=== PATIENT | female | born 1945 | race African-American/Black ===

== ENCOUNTER 2016-12-29 13:10 | Inpatient (IN) | payer OTHER, MEDICARE ==
[~2016-12-29] VITALS: Ht 176.5 cm; Wt 83.0 kg
--- NOTE | 2016-12-29 13:27 | ED MVC/FALL/TRAUMA COMPLAINT ---
History of Present Illness General Chief Complaint: General Adult Stated Complaint: WEAKNESS Source: patient Exam Limitations: no limitations Allergies Coded Allergies: NO KNOWN ALLERGIES (02/17/13) Reconcile Medications Alprazolam 0.5 MG TABLET 1 TAB PO 4XDP PRN ANXIETY (Reported) Anastrozole 1 MG TABLET 1 TAB PO DAILY CANCER (Reported) Ascorbic Acid (Vitamin C) 1,000 MG TABLET 1 TAB PO BID SUPPLEMENT (Reported) Atorvastatin Calcium 40 MG TABLET 1 TAB PO DAILY CHOLESTEROL (Reported) Baclofen 20 MG TABLET 1 TAB PO BID SPASMS (Reported) Baclofen 10 MG TABLET 1 TAB PO DAILY NEEDED PRN SPASMS (Reported) Calcium Carbonate/Vitamin D3 (Calcium + Vitamin D Tablet) 600 MG-200 TABLET 1 TAB PO BID SUPPLEMENT (Reported) Clemastine Fumarate 2.68 MG TABLET 1 TAB PO DAILY NEEDED PRN ALLERGIES ( Reported) Cyanocobalamin (Vitamin B-12) 1,000 MCG TABLET 2 TAB PO DAILY SUPPLEMENT ( Reported) Diclofenac Sodium (Voltaren) 1 % GEL..GRAM. 1 GM TOP 4 TIMES/DAY PRN KNEE PAIN (Reported) apply to affected area(s) Emollient Combination No.10 (Biafine) 45 GM EMULSN.G. 1 EMIR TOP DAILY UNKNOWN (Reported) Gabapentin 100 MG CAPSULE 1 CAP PO TID PRN PAIN (Reported) Glucosamine Sulfate (Unknown Strength) CAPSULE (Unknown Dose) PO DAILY SUPPLEMENT (Reported) Hydrocodone/Acetaminophen (Vicodin 5-300 MG Tablet) 5 MG-300 MG TABLET 1 TAB PO Q4 HRS NEEDED PRN PAIN (Reported) Interferon Beta-1a (Avonex) 30 MCG/0.5 ML SYRINGEKIT 1 INJ QMON UNKNONW ( Reported) Latanoprost (Xalatan) 0.005 % DROPS 1 GTT OPH QPM EYE (Reported) Levothyroxine Sodium (Synthroid) 75 MCG TABLET 1 TAB PO DAILY AC THYROID ( Reported) Paroxetine HCl (Paxil) 20 MG TABLET 1 TAB PO DAILY MENTAL HEALTH (Reported) Prochlorperazine Maleate (Compazine) 10 MG TABLET 1 TAB PO Q4 HRS NEEDED PRN NAUSEA/VOMITING (Reported) Pyridoxine HCl 500 MG TABLET 2 TAB PO DAILY SUPPLEMENT (Reported) Quazepam ([place]) 15 MG TABLET 1 TAB PO QPMP PRN SLEEP (Reported) Timolol Maleate 0.5 % DROPS 1 GTT OPH BID EYE (Reported) Ubidecarenone (Co Q-10) 100 MG CAPSULE 1 CAP PO DAILY SUPPLEMENT (Reported) Triage Nurses Notes Reviewed? yes HPI: This patient is a 71-year-old female with a past medical history including multiple sclerosis who presented to the emergency department today accompanied by her son for evaluation of weakness. The patient reported, "whenever I turn the heat up in my house the energy out of me." The patient's son reported that he found her face down on the ground at 11:00 this morning. The patient fell at approximately 2:00 this morning. The patient does not remember if she passed out or had a mechanical fall. The patient reported that she does have a, "bump on my forehead." The patient reported some mild intermittent nausea. She denied any headaches, visual changes, arm pain, jaw pain, dizziness, lightheadedness, chest pain, difficulty breathing, vomiting, abdominal pain, or any focal pain. This patient sees her multiple sclerosis doctor out of [place], Dr. perez. (AMBROSE PABLO PA-C) Vital Signs & Intake/Output Vital Signs & Intake/Output Vital Signs Date Time Temp Pulse Resp B/P Pulse O2 O2 Flow FiO2 Ox Delivery Rate 01/04 0843 100.0 01/04 0654 101.5 87 18 136/70 94 Room Air 01/04 0651 101.3 01/03 2248 97.0 83 18 136/78 93 Room Air 01/03 1426 97.5 90 18 140/80 94 Room Air ED Intake and Output 01/04 0000 01/03 1200 Intake Total 600 120 Output Total 400 100 Balance 200 20 Intake, Oral 600 120 Output, Urine 400 100 Past History Travel History Traveled to [place] past 21 day No Medical History Any Pertinent Medical History? see below for history Neurological: multiple sclerosis Surgical History Surgical History: non-contributory Psychosocial History Who do you live with Family Services at Home Nursing What is your primary language Khmer Family History Hx Contributory? No (AMBROSE PABLO PA-C) Review of Systems Review of Systems Constitutional: Reports: see HPI. Eyes: Reports: no symptoms. Ears, Nose, Throat, Mouth: Reports: no symptoms. Respiratory: Reports: no symptoms. Cardiovascular: Reports: no symptoms. Gastrointestinal/Abdominal: Reports: see HPI. Genitourinary: Reports: no symptoms. Musculoskeletal: Reports: no symptoms. Skin: Reports: no symptoms. Neurological/Psychological: Reports: no symptoms. All Other Systems: Reviewed and Negative (SAMY SEPULVEDA,AMBROSE) Physical Exam Physical Exam General Appearance: well developed/nourished, no apparent distress, alert, awake Comments: Well-developed well-nourished person in no acute distress HEENT: Normal EENT exam, head normocephalic/atraumatic no bony deformity/step- off of the skull, hematoma to the forehead, moist mucous membranes Pupils equally round and reactive to light. Nose is atraumatic. Neck: Supple, no lymphadenopathy. No midline tenderness Back: Normal inspection Cardiovascular: Regular rate and rhythm with no murmurs, rubs, or gallops Respiratory: Chest nontender. No respiratory distress. Breath sounds clear to auscultation bilaterally with no wheezes, rales, rhonchi Abdomen: Soft, nontender and nondistended Extremity: No edema, no calf tenderness to palpation, normal and equal pulses. Neuro: Alert oriented x3, motor sensory normal, cranial nerves II through XII grossly intact. Skin: No appreciable rash on exposed skin, skin is warm and dry. Areas of erythema and blistering to bilateral anterior thighs. Multiple skin tears to bilateral arms with some blistering noted Psych: Mood and affect is normal, memory and judgment is normal. Core Measures ACS in differential dx? Yes Severe Sepsis Present: No Septic Shock Present: No (SAMY SEPULVEDA,AMBROSE) Progress Differential Diagnosis: aoritic dissection, abd injury, C/T/L spine injury, ext injury, ICH, pelvis injury, pnemothorax, spinal cord injury, syncope, sepsis, burn, pneumonia, urinary tract infection Diagnostic Imaging: Viewed by Me: Radiology Read, CT Scan. Discussed w/RAD: Radiology Read, CT Scan. Radiology Impression: PATIENT: LOLY PEREZ PRESENT AGE: 71 PATIENT ACCOUNT NO: [id number] : 47 LOCATION: [facility] ORDERING PHYSICIAN: AMBROSE PABLO PA-C SERVICE DATE: 12/29/16 EXAM TYPE: CAT - CT CERV SPINE WO IV CONTRAST; CT HEAD WO IV CONTRAST; CT MAXILLOFACIAL W/O CON EXAMINATION: CT HEAD, CERVICAL SPINE, AND MAXILLOFACIAL. CLINICAL INFORMATION: Fall. COMPARISON: CT head of February 17, 2013 TECHNIQUE: CT scanning from base of skull to vertex performed without IV contrast administration. CT cervical spine without intrathecal contrast. Maxillofacial CT without intravenous contrast. DLP: 1574.10 mGy-cm. FINDINGS: The ventricles, sulci, and cisterns appear unremarkable. No abnormal extra-axial fluid collection or intracranial hemorrhage is seen. No significant mass effect or midline structure shift is evident. There is frontal scalp hematoma present. Visualized paranasal sinuses and mastoid air cells are without air-fluid levels with mucus retention cyst seen within left sphenoid sinus and right ethmoid. No abnormal prevertebral soft tissue swelling is seen within the cervical spine. There is loss of the normal cervical spine lordosis. No acute fracture is evident. There is narrowing of the C4-C5, C5-C6, and C6-C7 disc spaces. There is some mild spurring of the joints of Luschka at the C5-C6 level bilaterally but without significant neural foramina encroachment. Study of the facial bones demonstrate scalp hematoma about the frontal region. There is also noted to be a large right thyroid nodule with mass deviation of the trachea to the left. No nasal bone fractures identified. Maxillary spine is intact. There is opacification of a posterior right ethmoid air cell and there is mucus retention cyst within the left sphenoid sinus without air-fluid levels identified within the paranasal sinuses. Pterygoid plates intact. No acute facial bone fracture is seen. Ostiomeatal complexes unremarkable. No significant deviation of the calcified nasal septum. Status post right orbital surgery. IMPRESSION: No acute intracranial abnormality identified. Cervical spondylosis C4-C7 without acute cervical spine fracture. No acute facial bone fracture identified. Prominent right thyroid nodule. DICTATED BY: CORNELIUS OCAMPO MD DATE/TIME DICTATED:12/29/161399 DELIVERY SALES WORKER: PIPER DATE/TIME TRANSCRIBED:12/29/161399 CONFIDENTIAL, DO NOT COPY WITHOUT APPROPRIATE AUTHORIZATION. <Electronically signed in Other Vendor System> SIGNED BY: CORNELIUS OCAMPO MD 12/29/16 1444 CXR Impression: PATIENT: LOLY PEREZ PRESENT AGE: 71 PATIENT ACCOUNT NO: [id number] : 47 LOCATION: [facility] ORDERING PHYSICIAN: AMBROSE PABLO PA-C SERVICE DATE: 12/29/161323 EXAM TYPE: RAD - XRY- PORTABLE CHEST XRAY EXAMINATION: XR PORTABLE CHEST CLINICAL INFORMATION: Fall, altered mental status, pneumonia COMPARISON: 08/08/2014 chest x-ray and [address] scan TECHNIQUE: Portable AP view of the chest was obtained. FINDINGS: There is mild cardiomegaly. Tortuosity of thoracic aorta noted. The mediastinal silhouette is unremarkable. The pulmonary vascularity is within normal limits. The lungs are clear. Surgical terry in the left axilla noted. Unilateral presence of the right breast tissue suggests prior left mastectomy. The visualized bony thorax is unremarkable. IMPRESSION: 1. Mild cardiomegaly. 2. No acute pulmonary finding. DICTATED BY: JOANNE FUENTES MD DATE/TIME DICTATED: 12/29/161410 DELIVERY SALES WORKER:PIPER DATE/TIME TRANSCRIBED:12/29/161410 CONFIDENTIAL, DO NOT COPY WITHOUT APPROPRIATE AUTHORIZATION. <Electronically signed in Other Vendor System> SIGNED BY: JOANNE FUENTES MD 12/29/16 1419 Comments: 12/29/2016 2:45:42 PM: I spoke to on-call affirmative action specialist, Dr. Herndon. This patient 's affirmative action specialist is Dr. Xiao. This patient has a troponin level of 0.14. CK above 9000. This patient will need to be admitted to telemetry with diagnosis of rhabdomyolysis. This patient was officially signed out to Dr. Rendon for telemetry admission. (SAMY SEPULVEDA,AMBROSE) Plan of Care: Orders Procedure Date/time Status CREATINE PHOSPHOKINASE 01/04 0800 Active CBC WITHOUT DIFFERENTIAL 01/04 06 Complete BASIC ELECTROLYTES PLUS BUN&CR 01/04 06 Active Lab Add-on Test 01/04 UNK Active Current Medications Sig/Francy Start time Last Medication Dose Stop Time Status Admin Acetaminophen/ 1 TAB Q6P PRN 01/04 1030 AC Hydrocodone Bitart (Vicodin) Famotidine 20 MG DAILY 01/04 1025 AC (Pepcid) Baclofen 10 MG DAILY NEEDED PRN 12/29 1545 AC (Lioresal 10MG Tablet) Laboratory Tests 01/04/17 0800: Anion Gap 7, Estimated GFR > 60, BUN/Creatinine Ratio 18.3, Creatine Kinase Pending, CBC w Diff NO MAN DIFF REQ, RBC 3.64 L, MCV 86.6, MCH 28.3, RDW 13.8, MPV 8.5, Gran % 76.1 H, Lymphocytes % 14.8 L, Monocytes % 7.9, Eosinophils % 1.0, Basophils % 0.2, Absolute Granulocytes 7.9 H, Absolute Lymphocytes 1.5, Absolute Monocytes 0.8 H, Absolute Eosinophils 0.1, Absolute Basophils 0, PUBS MCHC 32.7 L Departure Departure Disposition: STILL A PATIENT Condition: Stable Clinical Impression Primary Impression: Elevated troponin Secondary Impressions: Fall Qualifiers: Encounter type: initial encounter Qualified Code: W19.XXXA - Unspecified fall, initial encounter Rhabdomyolysis Qualifiers: Rhabdomyolysis type: traumatic Encounter type: initial encounter Qualified Code: T79.6XXA - Traumatic ischemia of muscle, initial encounter Referrals: SILVINA ZAVALA MD (PCP/Family) Departure Forms: Customer Survey General Discharge Information Admission Note Spoke With: LYNDSAY BARAJAS MD Documentation of Exam: Documentation of any treatments & extenuating circumstances including Concerns Regarding Discharge (functional status, medication knowledge or non-compliance, living conditions, etc.) that warrant an admission rather than observation: [ This patient is a 71-year-old female the past medical history including multiple sclerosis who presented to the emergency department today for evaluation of fall and weakness. Troponin elevated. CK over 9000. White blood cell count 26. This patient will need to be admitted to telemetry for serial EKGs, serial troponin levels, follow-up blood cultures, follow-up urine culture, cardiology consultation, trend labs, possible IV antibiotics, IV fluids, and close monitoring. Premature discharge could prove medically harmful. This patient is a poor candidate for outpatient treatment.] (SAMY SEPULVEDA,AMBROSE) PA/PIPE INSULATOR HELPER Co-Sign Statement Statement: ED Attending supervision documentation- x I saw and evaluated the patient. I have also reviewed all the pertinent lab results and diagnostic results. I agree with the findings and the plan of care as documented in the PA's/PIPE INSULATOR HELPER's documentation. [] I have reviewed the ED Record and agree with the PA's/PIPE INSULATOR HELPER's documentation. [] Additions or exceptions (if any) to the PAs/PIPE INSULATOR HELPER's note and plan are summarized below: [] (BONNIE HDZ,FRANKLYN) sclerosis who presented to the emergency department today for evaluation of fall and weakness. Troponin elevated. CK over 9000. White blood cell count 26. This patient will need to be admitted to telemetry for serial EKGs, serial troponin levels, follow-up blood cultures, follow-up urine culture, cardiology consultation, trend labs, possible IV antibiotics, IV fluids, and close monitoring. Premature discharge could prove medically harmful. This patient is a poor candidate for outpatient treatment.] (SAMY SEPULVEDA,AMBROSE) PA/PIPE INSULATOR HELPER Co-Sign Statement Statement: ED Attending supervision documentation- x I saw and evaluated the patient. I have also reviewed all the pertinent lab results and diagnostic results. I agree with the findings and the plan of care as documented in the PA's/PIPE INSULATOR HELPER's documentation. [] I have reviewed the ED Record and agree with the PA's/PIPE INSULATOR HELPER's documentation. [] Additions or exceptions (if any) to the PAs/PIPE INSULATOR HELPER's note and plan are summarized below: [] (BONNIE HDZ,FRANKLYN)
[2016-12-29 13:47] LABS: ABSOLUTE BASOPHIL COUNT 0 /CUMM (0.0-0.2); ABSOLUTE EOSINOPHIL COUNT 0 /CUMM (0.0-0.7); ABSOLUTE GRANULOCYTE CT 24.6 /CUMM (1.4-6.5); ABSOLUTE LYMPH COUNT 1.3 /CUMM (1.2-3.4); ABSOLUTE MONOCYTE COUNT 0.3 /CUMM (0.10-0.60); BASOPHIL % 0 % (0.0-2.0); EOSINOPHIL % 0 % (0-5); HEMATOCRIT 42.7 % (37-47); MEAN CORPUSCULAR HGB 28.7 PG (27.0-31.0); MEAN CORPUSCULAR HGB CONC 33.1 G/DL (33.0-37.0); MEAN CORPUSCULAR VOLUME 86.6 FL (81.0-99.0); PLATELET COUNT 187 /CUMM (130-400); RBC DISTRIBUTION WIDTH 13.4 % (11.5-14.5); RED BLOOD CELL CT 4.93 /CUMM (4.20-5.40); WHITE BLOOD CELL COUNT 26.2 /CUMM (4.8-10.8)
[2016-12-29] MEDS ORDERED: GABAPENTIN100 M2 PO (13:50)
[2016-12-29] MEDS ORDERED: ATORVASTATIN CA40 M1 PO (13:51)
[2016-12-29] MEDS ORDERED: VITAMIN B-121000 MC3 PO (13:52)
[2016-12-29] MEDS ORDERED: CLEMASTINE FU2.68 MG PO (13:52)
[2016-12-29] MEDS ORDERED: BACLOFEN10 M1 PO (13:53)
[2016-12-29] MEDS ORDERED: BACLOFEN20 M1 PO (13:53)
[2016-12-29] MEDS ORDERED: GLUCOSAMINE SU PO (13:54)
[2016-12-29] MEDS ORDERED: AVONEX30 MCG/0.1 (13:54)
[2016-12-29] MEDS ORDERED: CALCIUM + VITA1 EAC1 PO (13:55)
[2016-12-29] MEDS ORDERED: PYRIDOXINE HCL500 MG PO (13:56)
[2016-12-29] MEDS ORDERED: CO Q-10100 MG PO (13:57)
[2016-12-29] MEDS ORDERED: VITAMIN C500 M6 PO (13:57)
[2016-12-29] MEDS ORDERED: BIAFINE45 GM TOP (13:58)
[2016-12-29] MEDS ORDERED: VOLTAREN100 GM TOP (13:59)
[2016-12-29] MEDS ORDERED: TIMOLOL MALEATE5 M4 OPH (13:59)
[2016-12-29] MEDS ORDERED: ANASTROZOLE1 M1 PO (14:00)
[2016-12-29] MEDS ORDERED: XALATAN2.5 ML OPH (14:00)
[2016-12-29] MEDS ORDERED: SYNTHROID50 MCG PO (14:00)
[2016-12-29] MEDS ORDERED: PAXIL20 M1 PO (14:01)
[2016-12-29] MEDS ORDERED: ALPRAZOLAM0.5 M4 PO (14:02)
[2016-12-29] MEDS ORDERED: VICODIN 5-3001 EACH PO (14:03)
[2016-12-29] MEDS ORDERED: [UNRECOGNIZED DRUG - OTHER] PO (14:03)
[2016-12-29] MEDS ORDERED: COMPAZINE10 M1 PO (14:04)
[2016-12-29 14:11] LABS: GRANULOCYTE % 93.8 % (42.2-75.2)
--- NOTE | 2016-12-29 14:19 | RADIOLOGY REPORT ---
EXAMINATION: XR PORTABLE CHEST CLINICAL INFORMATION: Fall, altered mental status, pneumonia COMPARISON: 08/08/2014 chest x-ray and 11/18/[address] scan TECHNIQUE: Portable AP view of the chest was obtained. FINDINGS: There is mild cardiomegaly. Tortuosity of thoracic aorta noted. The mediastinal silhouette is unremarkable. The pulmonary vascularity is within normal limits. The lungs are clear. Surgical terry in the left axilla noted. Unilateral presence of the right breast tissue suggests prior left mastectomy. The visualized bony thorax is unremarkable. IMPRESSION: 1. Mild cardiomegaly. 2. No acute pulmonary finding.
--- NOTE | 2016-12-29 14:44 | CT SCAN REPORT ---
EXAMINATION: CT HEAD, CERVICAL SPINE, AND MAXILLOFACIAL. CLINICAL INFORMATION: Fall. COMPARISON: CT head of February 17, 2013 TECHNIQUE: CT scanning from base of skull to vertex performed without IV contrast administration. CT cervical spine without intrathecal contrast. Maxillofacial CT without intravenous contrast. DLP: 1574.10 mGy-cm. FINDINGS: The ventricles, sulci, and cisterns appear unremarkable. No abnormal extra-axial fluid collection or intracranial hemorrhage is seen. No significant mass effect or midline structure shift is evident. There is frontal scalp hematoma present. Visualized paranasal sinuses and mastoid air cells are without air-fluid levels with mucus retention cyst seen within left sphenoid sinus and right ethmoid. No abnormal prevertebral soft tissue swelling is seen within the cervical spine. There is loss of the normal cervical spine lordosis. No acute fracture is evident. There is narrowing of the C4-C5, C5-C6, and C6-C7 disc spaces. There is some mild spurring of the joints of Luschka at the C5-C6 level bilaterally but without significant neural foramina encroachment. Study of the facial bones demonstrate scalp hematoma about the frontal region. There is also noted to be a large right thyroid nodule with mass deviation of the trachea to the left. No nasal bone fractures identified. Maxillary spine is intact. There is opacification of a posterior right ethmoid air cell and there is mucus retention cyst within the left sphenoid sinus without air-fluid levels identified within the paranasal sinuses. Pterygoid plates intact. No acute facial bone fracture is seen. Ostiomeatal complexes unremarkable. No significant deviation of the calcified nasal septum. Status post right orbital surgery. IMPRESSION: No acute intracranial abnormality identified. Cervical spondylosis C4-C7 without acute cervical spine fracture. No acute facial bone fracture identified. Prominent right thyroid nodule.
--- NOTE | 2016-12-29 15:49 | Cons- Cardiology ---
General Information and HPI Consulting Request Date of Consult: 12/29/16 Requested By: LYNDSAY BARAJAS MD Reason for Consult: Fall, rule out syncope; elevated troponin Source of Information: patient, family Exam Limitations: no limitations History of Present Illness: The patient is a 71-year-old female who is usually followed by Dr. 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 The patient presents to the hospital today via the emergency room after being found by her son on the floor at home. The patient, the temperature in her apartment was high. She felt weak. She feels this was due to her MS. She apparently fell to the floor. She denies any known loss of consciousness or syncope. The patient was unable to get up and stayed on the floor from 2:30 AM until she was found by her son in the midmorning. On arrival to the emergency room, the patient had areas of bruising. She was noted to have a markedly elevated CPK of almost 10,000 and a minimally elevated troponin of 0.14. The patient denies any significant cardiac symptoms whatsoever. Allergies/Medications Allergies: Coded Allergies: NO KNOWN ALLERGIES (02/17/13) Home Med List: Alprazolam 0.5 MG TABLET 1 TAB PO 4XDP PRN ANXIETY (Reported) Anastrozole 1 MG TABLET 1 TAB PO DAILY CANCER (Reported) Ascorbic Acid (Vitamin C) 1,000 MG TABLET 1 TAB PO BID SUPPLEMENT (Reported) Atorvastatin Calcium 40 MG TABLET 1 TAB PO DAILY CHOLESTEROL (Reported) Baclofen 20 MG TABLET 1 TAB PO BID SPASMS (Reported) Baclofen 10 MG TABLET 1 TAB PO DAILY NEEDED PRN SPASMS (Reported) Calcium Carbonate/Vitamin D3 (Calcium + Vitamin D Tablet) 600 MG-200 TABLET 1 TAB PO BID SUPPLEMENT (Reported) Clemastine Fumarate 2.68 MG TABLET 1 TAB PO DAILY NEEDED PRN ALLERGIES ( Reported) Cyanocobalamin (Vitamin B-12) 1,000 MCG TABLET 2 TAB PO DAILY SUPPLEMENT ( Reported) Diclofenac Sodium (Voltaren) 1 % GEL..GRAM. 1 GM TOP 4 TIMES/DAY PRN KNEE PAIN (Reported) apply to affected area(s) Emollient Combination No.10 (Biafine) 45 GM EMULSN.G. 1 EMIR TOP DAILY UNKNOWN (Reported) Gabapentin 100 MG CAPSULE 1 CAP PO TID PRN PAIN (Reported) Glucosamine Sulfate (Unknown Strength) CAPSULE (Unknown Dose) PO DAILY SUPPLEMENT (Reported) Hydrocodone/Acetaminophen (Vicodin 5-300 MG Tablet) 5 MG-300 MG TABLET 1 TAB PO Q4 HRS NEEDED PRN PAIN (Reported) Interferon Beta-1a (Avonex) 30 MCG/0.5 ML SYRINGEKIT 1 INJ QMON UNKNONW ( Reported) Latanoprost (Xalatan) 0.005 % DROPS 1 GTT OPH QPM EYE (Reported) Levothyroxine Sodium (Synthroid) 75 MCG TABLET 1 TAB PO DAILY AC THYROID ( Reported) Paroxetine HCl (Paxil) 20 MG TABLET 1 TAB PO DAILY MENTAL HEALTH (Reported) Prochlorperazine Maleate (Compazine) 10 MG TABLET 1 TAB PO Q4 HRS NEEDED PRN NAUSEA/VOMITING (Reported) Pyridoxine HCl 500 MG TABLET 2 TAB PO DAILY SUPPLEMENT (Reported) Quazepam ([place]) 15 MG TABLET 1 TAB PO QPMP PRN SLEEP (Reported) Timolol Maleate 0.5 % DROPS 1 GTT OPH BID EYE (Reported) Ubidecarenone (Co Q-10) 100 MG CAPSULE 1 CAP PO DAILY SUPPLEMENT (Reported) Past History Travel History Traveled to [place] past 21 day No Medical History Neurological: multiple sclerosis EENT: NONE Cardiovascular: NONE Respiratory: NONE Gastrointestinal: NONE Hepatic: NONE Renal: NONE Musculoskeletal: NONE Psychiatric: NONE Endocrine: NONE Cancer(s): L BREAST CANCER W MASTECT Surgical History Surgical History: non-contributory Psychosocial History Services at Home: Nursing Exam & Diagnostic Data Vital Signs and I&O Vital Signs Date Time Temp Pulse Resp B/P Pulse O2 O2 Flow FiO2 Ox Delivery Rate 12/29 1425 96.8 81 18 143/92 96 Room Air 12/29 1335 97.0 100 20 130/90 97 Room Air Physical Exam: Well-developed well-nourished female in no acute distress; alert and oriented 3 HEENT: Normal; slight bruising central for Neck: Supple, no lymphadenopathy. No midline tenderness. No JVP elevation. Carotids normal bilaterally Cardiovascular: Regular rate and rhythm; 1/6 systolic murmur left sternal border Respiratory: Chest nontender. Clear to auscultation and percussion bilaterally Abdomen: Soft, nontender and nondistended Extremity: No edema, no calf tenderness to palpation, normal and equal pulses. Neuro: Nonfocal Skin: No appreciable rash on exposed skin, skin is warm and dry. Areas of erythema and blistering to bilateral anterior thighs. Multiple skin tears to bilateral arms with some blistering noted Psych: Mood and affect is normal, memory and judgment is normal. Labs/Waqar Results: Laboratory Tests 12/29 1339 Chemistry Sodium (137 - 145 mmol/L) 145 Potassium (3.5 - 5.1 mmol/L) 3.8 Chloride (98 - 107 mmol/L) 103 Carbon Dioxide (22 - 30 mmol/L) 25 Anion Gap (5 - 16) 17 H BUN (7 - 17 mg/dL) 29 H Creatinine (0.5 - 1.0 mg/dL) 0.9 Estimated GFR (>60 ml/min) > 60 BUN/Creatinine Ratio (7 - 25 %) 32.2 H Glucose (65 - 99 mg/dL) 159 H Lactic Acid (0.7 - 2.1 mmol/L) 3.8 H Calcium (8.4 - 10.2 mg/dL) 9.8 Total Bilirubin (0.2 - 1.3 mg/dL) 1.2 AST (14 - 36 U/L) 133 H ALT (9 - 52 U/L) 53 H Alkaline Phosphatase (<127 U/L) 112 Creatine Kinase (30 - 135 U/L) 9679 H Troponin I (< 0.11 ng/ml) 0.14 *H Total Protein (6.3 - 8.2 g/dL) 7.8 Albumin (3.5 - 5.0 g/dL) 4.3 Globulin (1.9 - 4.2 gm/dL) 3.5 Albumin/Globulin Ratio (1.1 - 2.2 %) 1.2 TSH (0.270 - 4.200 uIU/mL) Pending Free T4 (0.78 - 2.44 ng/dL) 1.78 Hematology CBC w Diff MAN DIFF ORDERED WBC (4.8 - 10.8 /CUMM) 26.2 H RBC (4.20 - 5.40 /CUMM) 4.93 Hgb (12.0 - 16.0 G/DL) 14.1 Hct (37 - 47 %) 42.7 MCV (81.0 - 99.0 FL) 86.6 MCH (27.0 - 31.0 PG) 28.7 RDW (11.5 - 14.5 %) 13.4 Plt Count (130 - 400 /CUMM) 187 MPV (7.4 - 10.4 FL) 8.0 Gran % (42.2 - 75.2 %) 93.8 H Lymphocytes % (20.5 - 51.1 %) 4.9 L Monocytes % (1.7 - 9.3 %) 1.3 L Eosinophils % (0 - 5 %) 0 Basophils % (0.0 - 2.0 %) 0 L Absolute Granulocytes (1.4 - 6.5 /CUMM) 24.6 H Segmented Neutrophils (42.2 - 75.2 %) 80 H Band Neutrophils (0.0 - 5.0 %) 14 H Absolute Lymphocytes (1.2 - 3.4 /CUMM) 1.3 Lymphocytes (20.5 - 51.1 %) 4 L Monocytes (1.7 - 9.3 %) 2 Absolute Monocytes (0.10 - 0.60 /CUMM) 0.3 Absolute Eosinophils (0.0 - 0.7 /CUMM) 0 Absolute Basophils (0.0 - 0.2 /CUMM) 0 Normocytic RBCs VERIFIED Normochromic RBCs VERIFIED PUBS MCHC (33.0 - 37.0 G/DL) 33.1 Diagnostic Data CXR Results FINDINGS: There is mild cardiomegaly. Tortuosity of thoracic aorta noted. The mediastinal silhouette is unremarkable. The pulmonary vascularity is within normal limits. The lungs are clear. Surgical terry in the left axilla noted. Unilateral presence of the right breast tissue suggests prior left mastectomy. The visualized bony thorax is unremarkable. IMPRESSION: 1. Mild cardiomegaly. 2. No acute pulmonary finding. Assessment/Plan Assessment/Plan Assessment: 1. Minimally elevated troponin in the setting of rhabdomyolysis 2. Fall, possibly mechanical; rule out syncope 3. History of breast cancer 4. Multiple sclerosis 5. Significant leukocytosis 6. Cardiomegaly on chest x-ray 7. Elevated lactic acid level Recommendations: -Keep the patient on 1 [place] telemetry for monitoring -Check orthostatic heart rate and blood pressure every shift 3 -Echocardiogram pending -IV fluid hydration for rhabdomyolysis as discussed with house staff -Follow-up CPK levels -Serial troponins until decreasing -Further plans after the above Consult Acknowledgment - Thank you for your consult request.
--- NOTE | 2016-12-29 16:06 | History & Physical ---
[facility] 12[facility] 1552: General Information and HPI MD Statement: I have seen and personally examined LOLY PEREZ and documented this H&P. The patient is a 71 year old F who presented with a patient stated chief complaint of [fall and weakness]. Source of Information: patient, family Exam Limitations: no limitations History of Present Illness: Patient is a 71-year-old female with past medical history of left breast cancer status post mastectomy currently on an anastrozole, MS, osteoarthritis, hyperlipidemia, status post left knee replacement who was brought into the ED by her son for the evaluation of a fall and weakness. Patient reported feeling very weak and lethargic this morning. She went to bed at night turning on the heat of her room which she believes made her dehydrated and sick. She woke up around 2 AM to go to the bathroom feeling very weak. She felt her muscles were sore and achy. She fell down in the bathroom flat on her face by the side of the toilet and was unable to get up. She denied any dizziness, visual changes, headaches, shortness of breath, chest pain, palpitations, nausea, vomiting, or aura before the episode. She had no LOC and felt that her muscles were aching and her legs were unable to support her. She bumped her forehead after hitting the floor. She kept laying there for about 10 hours until she was found by her son in the same position at 11:45 AM. The son was unable to pick her up and therefore called EMS. Patient reports no fever, no chills, abdominal pain, urinary or bowel symptoms. Patient reports that she had similar weakness in the past due to increased temperature conditions in her house. She had a replacement about 2 years back and since then have been using a walker for ambulation. At baseline, patient has MS and sees Dr. Ga in [place]. She has no neurological deficits from her MS. Dr. Patterson is her radiation oncologist. She has been on hormonal therapy for sometime now and has is very compliant with her medications. Norbert Staples MD is her lead radiation therapist to whom she was referred to by her radiation doctor when she was put on Herceptin. In the ED vitals were stable with a temperature of 97, pulse 100, respiration 20 , blood pressure 130/90, saturating 97% on room air Pertinent labs showed white count of 26.2 with 14 bands, anion gap of 17, lactic acid 3.8, AST 133, AST 53, creatinine kinase 9679, troponin 0.14, TSH 0.122, normal free T4. EKG: Regular rate and rhythm, 81 bpm, left axis deviation, left ventricular hypertrophy, nonspecific T-wave changes. Cervical spine CT, head CT, maxillofacial CT were negative for any fractures. 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 Patient received IV fluids in the ED. Allergies/Medications Allergies: Coded Allergies: NO KNOWN ALLERGIES (02/17/13) Home Med list Alprazolam 0.5 MG TABLET 1 TAB PO 4XDP PRN ANXIETY (Reported) Anastrozole 1 MG TABLET 1 TAB PO DAILY CANCER (Reported) Ascorbic Acid (Vitamin C) 1,000 MG TABLET 1 TAB PO BID SUPPLEMENT (Reported) Atorvastatin Calcium 40 MG TABLET 1 TAB PO DAILY CHOLESTEROL (Reported) Baclofen 20 MG TABLET 1 TAB PO BID SPASMS (Reported) Baclofen 10 MG TABLET 1 TAB PO DAILY NEEDED PRN SPASMS (Reported) Calcium Carbonate/Vitamin D3 (Calcium + Vitamin D Tablet) 600 MG-200 TABLET 1 TAB PO BID SUPPLEMENT (Reported) Clemastine Fumarate 2.68 MG TABLET 1 TAB PO DAILY NEEDED PRN ALLERGIES ( Reported) Cyanocobalamin (Vitamin B-12) 1,000 MCG TABLET 2 TAB PO DAILY SUPPLEMENT ( Reported) Diclofenac Sodium (Voltaren) 1 % GEL..GRAM. 1 GM TOP 4 TIMES/DAY PRN KNEE PAIN (Reported) apply to affected area(s) Emollient Combination No.10 (Biafine) 45 GM EMULSN.G. 1 EMIR TOP DAILY UNKNOWN (Reported) Gabapentin 100 MG CAPSULE 1 CAP PO TID PRN PAIN (Reported) Glucosamine Sulfate (Unknown Strength) CAPSULE (Unknown Dose) PO DAILY SUPPLEMENT (Reported) Hydrocodone/Acetaminophen (Vicodin 5-300 MG Tablet) 5 MG-300 MG TABLET 1 TAB PO Q4 HRS NEEDED PRN PAIN (Reported) Interferon Beta-1a (Avonex) 30 MCG/0.5 ML SYRINGEKIT 1 INJ QMON UNKNONW ( Reported) Latanoprost (Xalatan) 0.005 % DROPS 1 GTT OPH QPM EYE (Reported) Levothyroxine Sodium (Synthroid) 75 MCG TABLET 1 TAB PO DAILY AC THYROID ( Reported) Paroxetine HCl (Paxil) 20 MG TABLET 1 TAB PO DAILY MENTAL HEALTH (Reported) Prochlorperazine Maleate (Compazine) 10 MG TABLET 1 TAB PO Q4 HRS NEEDED PRN NAUSEA/VOMITING (Reported) Pyridoxine HCl 500 MG TABLET 2 TAB PO DAILY SUPPLEMENT (Reported) Quazepam ([place]) 15 MG TABLET 1 TAB PO QPMP PRN SLEEP (Reported) Timolol Maleate 0.5 % DROPS 1 GTT OPH BID EYE (Reported) Ubidecarenone (Co Q-10) 100 MG CAPSULE 1 CAP PO DAILY SUPPLEMENT (Reported) Past History Travel History Traveled to [place] past 21 day No Medical History Neurological: multiple sclerosis EENT: NONE Cardiovascular: NONE Respiratory: NONE Gastrointestinal: NONE Hepatic: NONE Renal: NONE Musculoskeletal: NONE Psychiatric: NONE Endocrine: NONE Cancer(s): L BREAST CANCER W MASTECT Surgical History Surgical History: non-contributory Past Family/Social History Psychosocial History Services at Home: Nursing Review of Systems Review of Systems Constitutional: Reports: malaise, weakness. EENTM: Reports: no symptoms. Cardiovascular: Reports: no symptoms. Respiratory: Reports: no symptoms. GI: Reports: no symptoms. Genitourinary: Reports: no symptoms. Musculoskeletal: Reports: muscle pain, muscle stiffness. Skin: Reports: no symptoms. Neurological/Psychological: Reports: no symptoms. Exam & Diagnostic Data Last 24 Hrs of Vital Signs/I&O Vital Signs Date Time Temp Pulse Resp B/P Pulse O2 O2 Flow FiO2 Ox Delivery Rate 12/29 1425 96.8 81 18 143/92 96 Room Air 12/29 1335 97.0 100 20 130/90 97 Room Air Physical Exam General Appearance Alert, Oriented X3, Cooperative, Mild Distress Skin mastectomy scar on the left breast, left knee surgery scar, erythema and scars seen on bilateral feet. some blistering over the arms HEENT Atraumatic, PERRLA, EOMI, very dry mucous membranes Neck Supple, No JVD Lymphatic Cervical nl Cardiovascular Regular Rate, Normal S1, Normal S2, systolic murmur Lungs Clear to Auscultation, Normal Air Movement Abdomen Normal Bowel Sounds, Soft, No Tenderness, No Hepatospenomegaly Neurological Normal Gait, Normal Speech, Normal Tone, decreased power 4/5 in all extremities due to muscle weakness. Diminished light touch sensation over left leg up to the knee. cold upper extremities Extremities No Clubbing, No Cyanosis, No Edema, scars and blisters over bilateral lower extremities. Left knee surgical scar Vascular Normal Pulses Last 24 Hrs of Labs/Waqar: Laboratory Tests 12/29/16 1339: Anion Gap 17 H, Estimated GFR > 60, BUN/Creatinine Ratio 32.2 H, Glucose 159 H, Lactic Acid 3.8 H, Calcium 9.8, Total Bilirubin 1.2, AST 133 H, ALT 53 H, Alkaline Phosphatase 112, Creatine Kinase 9679 H, Troponin I 0.14 *H, Total Protein 7.8, Albumin 4.3, Globulin 3.5, Albumin/Globulin Ratio 1.2, TSH 0.122 L , Free T4 1.78, CBC w Diff MAN DIFF ORDERED, RBC 4.93, MCV 86.6, MCH 28.7, RDW 13.4, MPV 8.0, Gran % 93.8 H, Lymphocytes % 4.9 L, Monocytes % 1.3 L, Eosinophils % 0, Basophils % 0 L, Absolute Granulocytes 24.6 H, Segmented Neutrophils 80 H, Band Neutrophils 14 H, Absolute Lymphocytes 1.3, Lymphocytes 4 L, Monocytes 2, Absolute Monocytes 0.3, Absolute Eosinophils 0, Absolute Basophils 0, Normocytic RBCs VERIFIED, Normochromic RBCs VERIFIED, PUBS MCHC 33.1 Microbiology 12/29 1420 BLOOD: Blood Culture - RECD 12/29 1400 BLOOD: Blood Culture - RECD 12/29 1323 URINE ROUT: Urine Culture - COLB Diagnostic Data CXR Results FINDINGS: There is mild cardiomegaly. Tortuosity of thoracic aorta noted. The mediastinal silhouette is unremarkable. The pulmonary vascularity is within normal limits. The lungs are clear. Surgical terry in the left axilla noted. Unilateral presence of the right breast tissue suggests prior left mastectomy. The visualized bony thorax is unremarkable. IMPRESSION: 1. Mild cardiomegaly. 2. No acute pulmonary finding. Assessment/Plan Assessment: Patient is a 71-year-old female with past medical history of left breast cancer status post mastectomy currently on an anastrozole, MS, osteoarthritis, hyperlipidemia, status post left knee replacement who was brought into the ED by her son for the evaluation of a fall and weakness apparently mechanical. In the ED vitals were stable with a temperature of 97, pulse 100, respiration 20 , blood pressure 130/90, saturating 97% on room air Pertinent labs showed white count of 26.2 with 14 bands, anion gap of 17, lactic acid 3.8, AST 133, AST 53, creatinine kinase 9679, troponin 0.14, TSH 0.122, normal free T4. EKG: Regular rate and rhythm, 81 bpm, left axis deviation, left ventricular hypertrophy, nonspecific T-wave changes. Cervical spine CT, head CT, maxillofacial CT were negative for any fractures. 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 Patient received IV fluids in the ED. Plan: 1.Unwitnessed fall: Differentials could be mechanical fall due to muscle weakness versus loss of coordination/balance/pain in limbs secondary to MS exacerbation. Patient denies any LOC/chest pain/vision problems/dizziness/ neurological deficits. -Admit to telemetry -Every 4 hours neuro checks -Check orthostatics -IV normal saline at 1 50 mL per hour -Trend CPK levels -3 sets of troponin and EKG to rule out ACS -Continue baclofen and gabapentin as needed for muscle pain and spasms -Check electrolytes and replete as needed -Echocardiogram -Physical therapy evaluation and treat 2. Elevated troponins: Likely demand ischemia -Close monitoring on the telemetry floor -Trend troponins to the peak -Replete electrolytes as needed -Repeat echocardiogram(last echo in 2011 shows EF of 60% with impaired LV relaxation) -Cardiology consult appreciated(Norbert Staples MD is patient's lead radiation therapist) 3. Elevated white count and bandemia: No clear source of infection at this point. Chest x-ray benign. UA pending. Elevated lactate level secondary to rhabdomyolysis -IV fluids at 1 50 mL an hour -Repeat CDC levels in a.m. -Blood and urine cultures -Check UA 4. Rhabdomyolysis -Aggressive hydration with IV normal saline at 150 mL an hour -Repeat CPK levels in a.m. -Repeat lactic acid levels in 3 hours -Holding statin for muscle injury 5. History of MS -No neurological deficits -Continue baclofen and gabapentin as needed for muscle spasm and neuropathic pain -Continue merbetriq for neurogenic bladder -Dr. Ga in [place] is patient's MS doctor. 6.Transaminitis? Unclear etiology -Trend LFTs in a.m. -Consider right upper quadrant ultrasound 7. History of left breast cancer status post mastectomy and radiation/currently on hormonal therapy -Continue anastrozole -Courtsey call to Dr Patterson patient's radiation oncologist 8. Low TSH? Normal free T4. Right Thyroid nodule on CT -We'll cut down on patient's home med levothyroxin from 75 to 50 g -Please consider endocrinology consult to readjust her thyroid medication Heart healthy diet Full code Mild pain pathway As Ranked By This Provider Problem List: 1. Rhabdomyolysis Qualifiers Rhabdomyolysis type: traumatic Encounter type: initial encounter Qualified Code : T79.6XXA - Traumatic ischemia of muscle, initial encounter 2. Fall Qualifiers Encounter type: initial encounter Qualified Code: W19.XXXA - Unspecified fall, initial encounter 3. Elevated troponin Core Measures/Miscellaneous Acute Coronary Syndrome ACS Diagnosis: No Date of most recent Echo 12/31/11 Last Known EF % 60 Cerebrovascular Accident CVA/TIA Diagnosis: No Congestive Heart Failure CHF Diagnosis: No Venous Thromboembolism VTE Risk Factors: Age > 40, Cancer/chemo/[facility] prophylaxis d/t: No contraindications No VTE Pharm Prophylaxis d/t: No contraindications VTE Diagnosis: No VTE Type: NONE VTE Confirmed by (Test): NONE Severe Sepsis Severe Sepsis Present: No Septic Shock Septic Shock Present: No Miscellaneous Documentation Attending Case Discussed With: LYNDSAY BARAJAS MD Primary Care Physician: SILVINA ZAVALA MD Patient sees these Specialists dr patterson Level of Patient Care: Telemetry LYNDSAY BARAJAS MD 12/29/16 2013: Attending MD Review Statement Attending Statement Attending MD Statement: examined this patient, discuss w/resident/PA/RUSSIAN LANGUAGE INSTRUCTOR, agreed w/resident/PA/RUSSIAN LANGUAGE INSTRUCTOR, reviewed EMR data (avail) Attending Assessment/Plan: 71F PMH multiple sclerosis, left breast cancer on Anostrazole, brought in by family after being found down in bathroom for at least 12 hours. Patient reports feeling weak last night which progressively worsened, fell in her bathroom, and was unable to get up on her own. THere is no focal neurological deficits or focal weakness. She appears dehydrated and weak, and there is no evidence of infection. Labs show rhabdomyolysis and elevated troponin. No EKG changes. Plan - Admit to telemetry - IV hydration - Trend cardiac enzymes and EKG - Cardiology consult - Obtain echocardiogram - Repeat CPK level tomorrow - No steroids for now - Consider neurology consult if neurological symptoms, will alert patient's neurologist of admission - Neuro checks qshift - Continue home medications - DVT PPx
[2016-12-29 18:00] VITALS: BP 158/84
--- NOTE | 2016-12-29 20:14 | Admission Certification ---
Admission Certification Certification Statement - As attending physician, I certify that at the time of - admission, based on clinical presentation, severity of - symptoms, need for further diagnostic testing and - therapeutic interventions, and risk of adverse outcomes - without in-hospital treatment, in my clinical assessment, - this patient requires an acute hospital stay for a minimum - of two nights or longer. I have also considered psychsocial - factors such as support system, advanced age, financial - issues, cognitive issues, and failed out-patient treatments, - past re-admission history, safety of patient, and lack of - compliance as applicable. Specific rationale supporting this admission is: Fall, unable to get up, rhabdomyolysis
[2016-12-29 23:42] VITALS: BP 102/48
[2016-12-30 02:20] VITALS: BP 108/60
[2016-12-30 04:05] LABS: ABSOLUTE BASOPHIL COUNT 0.1 /CUMM (0.0-0.2); ABSOLUTE EOSINOPHIL COUNT 0 /CUMM (0.0-0.7); ABSOLUTE GRANULOCYTE CT 15.9 /CUMM (1.4-6.5); ABSOLUTE LYMPH COUNT 1.5 /CUMM (1.2-3.4); ABSOLUTE MONOCYTE COUNT 0.8 /CUMM (0.10-0.60); BASOPHIL % 0.4 % (0.0-2.0); EOSINOPHIL % 0 % (0-5); GRANULOCYTE % 86.9 % (42.2-75.2); MEAN CORPUSCULAR HGB 28.8 PG (27.0-31.0); MEAN CORPUSCULAR HGB CONC 33.4 G/DL (33.0-37.0); MEAN CORPUSCULAR VOLUME 86.2 FL (81.0-99.0); MEAN PLATELET VOLUME 9.1 FL (7.4-10.4); PLATELET COUNT 152 /CUMM (130-400); RBC DISTRIBUTION WIDTH 13.2 % (11.5-14.5); RED BLOOD CELL CT 4.09 /CUMM (4.20-5.40); WHITE BLOOD CELL COUNT 18.3 /CUMM (4.8-10.8)
[2016-12-30 04:09] LABS: HEMATOCRIT 35.3 % (37-47)
[2016-12-30 09:11] VITALS: BP 128/68
--- NOTE | 2016-12-30 10:04 | PN- Housestaff ---
[facility] 12/30/16 1004: Subjective Follow-up For: Unwitnessed fall Elevated troponins Questionable UTI Complaints: CONTINUES TO FEEL WEAK, LETHARGIC AND TIRED Tele-Events Since Last Visit: Sinus rhythm, PVCs Subjective: Patient was admitted yesterday for an unwitnessed fall at home. She still continues to feel weak and sore in her muscles. Spiked a fever MAXIMUM TEMPERATURE of 100.8 at around midnight. Blood cultures growing gram-negative rods. Patient has no urinary symptoms, abdominal pain, nausea vomiting, chest pain. She has been started on IV ceftriaxone this am. Review of Systems Constitutional: Reports: fever, malaise, weakness. EENTM: Reports: no symptoms. Cardiovascular: Reports: no symptoms. Respiratory: Reports: no symptoms. Gastrointestinal: Reports: no symptoms. Genitourinary: Reports: no symptoms. Musculoskeletal: Reports: muscle pain, muscle stiffness. Skin: Reports: no symptoms. Neurological/Psychological: Reports: no symptoms. Objective Last 24 Hrs of Vital Signs/I&O Vital Signs Date Time Temp Pulse Resp B/P Pulse O2 O2 Flow FiO2 Ox Delivery Rate 12/30 1013 99.7 12/30 0911 100.5 75 18 128/68 94 Room Air 12/30 0252 99.7 12/30 0220 99.7 82 18 108/60 96 Room Air 12/30 0018 101.2 12/29 2342 100.8 80 18 102/48 94 Room Air / 1800 98.9 82 18 158/84 92 / 1713 97.7 77 16 165/95 97 Room Air / 1425 96.8 81 18 143/92 96 Room Air / 1335 97.0 100 20 130/90 97 Room Air Intake & Output 12/30 1600 12/30 0800 / 0000 Intake Total 700 240 Output Total Balance 700 240 Intake, Oral 700 240 Physical Exam General Appearance: Alert, Oriented X3, Cooperative, Mild Distress Skin: mastectomy scar on the left breast, scarring and blistering seen over the arms and legs. HEENT: Atraumatic, PERRLA, EOMI, dry mucous membranes Neck: Supple, No JVD Lymphatic: Cervical nl Cardiovascular: Regular Rate, Normal S1, Normal S2, systolic murmur Lungs: Clear to Auscultation, Normal Air Movement Abdomen: Normal Bowel Sounds, Soft, No Tenderness Neurological: Normal Speech, Normal Tone, weakness in all 4 extremities. Diminished light touch sensation on the left leg UP TO THE KNEE. Extremities: No Clubbing, No Cyanosis, No Edema, LEFT KNEE SURGICAL SCAR, BLISTERING AND SCARRING OVER BILATERAL LOWER EXTREMITIES. Current Medications: Current Medications Sig/Francy Start time Last Medication Dose Route Stop Time Status Admin Acetaminophen 650 MG .STK-MED ONE 12/30 0012 DC PO 12/30 0013 Acetaminophen 325 MG Q6-PRN PRN 12/29 1530 AC 12/30 PO 1013 Alprazolam 0.5 MG ONCE ONE 12/30 0930 DC 12/30 PO 12/30 0931 1015 Alprazolam 0.5 MG ONCE PRN 12/29 1545 DC 12/29 PO 12/29 2300 2035 Anastrozole 1 MG DAILY 12/29 1533 AC 12/30 PO 1013 Baclofen 10 MG DAILY NEEDED PRN 12/29 1545 AC PO Ceftriaxone Sodium 1,000 MG DAILY 12/31 1000 AC IV Ceftriaxone Sodium 1,000 MG DAILY 12/30 1000 DC IV Ceftriaxone Sodium 1,000 MG ONCE ONE 12/30 0745 DC 12/30 IV 12/30 0746 1012 Enoxaparin Sodium 40 MG DAILY 12/29 1518 AC 12/30 SC 1014 Gabapentin 100 MG TID PRN 12/29 1545 AC 12/30 PO 0026 Levothyroxine Sodium 0.05 MG DAILY AC 12/30 0700 AC 12/30 PO 0556 Levothyroxine Sodium 0.075 MG DAILY AC 12/29 1537 DC PO Mirabegron 50 MG DAILY 12/29 1600 AC 12/30 PO 1012 Paroxetine HCl 20 MG DAILY 12/30 1000 AC 12/30 PO 1014 Potassium Chloride 40 MEQ ONCE ONE 12/30 0730 DC 12/30 PO 12/30 0731 1013 Potassium Chloride 20 MEQ ONCE ONE 12/30 0630 DC 12/30 PO 12/30 0731 1014 Sodium Chloride 1,000 ML Q6H 12/30 0930 AC 12/30 IV 1013 Sodium Chloride 1,000 ML Q6H 12/29 1600 DC 12/29 IV 12/30 0359 2114 Sodium Chloride 1,000 ML BOLUS ONE 12/29 1430 DC 12/29 IV 12/29 1529 1454 Timolol Maleate 1 GTT BID 12/29 1538 AC 12/30 OPH 1014 Last 24 Hrs of Lab/Waqar Results Last 24 Hrs of Labs/Mics: Laboratory Tests 12/30/16 0700: Urinalysis MOD H, Urine Color YEL, Urine Clarity HAZY H, Urine pH 6.0, Ur Specific Rison >= 1.030, Urine Protein 100 H, Urine Ketones TRACE H, Urine Nitrite POS H, Urine Bilirubin NEG, Urine Urobilinogen 0.2, Ur Leukocyte Esterase MOD H, Ur Microscopic SEDIMENT EXAMINED, Urine RBC 3-5, Urine WBC 25- 50 H, Ur Epithelial Cells RARE, Urine Bacteria MANY H, Urine Hemoglobin LARGE H, Urine Glucose NEG 12/30/16 0305: Troponin I 0.13 *H 12/30/16 0305: Anion Gap 9, Estimated GFR > 60, BUN/Creatinine Ratio 37.1 H, Total Bilirubin 0.8, Direct Bilirubin 0.2, AST 120 H, ALT 56 H, Alkaline Phosphatase 92, Creatine Kinase 6854 H, Total Protein 5.9 L, Albumin 3.1 L, CBC w Diff MAN DIFF ORDERED, RBC 4.09 L, MCV 86.2, MCH 28.8, RDW 13.2, MPV 9.1, Gran % 86.9 H , Lymphocytes % 8.3 L, Monocytes % 4.4, Eosinophils % 0, Basophils % 0.4, Absolute Granulocytes 15.9 H, Segmented Neutrophils 84 H, Band Neutrophils 4, Absolute Lymphocytes 1.5, Lymphocytes 9 L, Monocytes 3, Absolute Monocytes 0.8 H, Absolute Eosinophils 0, Absolute Basophils 0.1, Platelet Estimate ADEQUATE, Polychromasia 1+, Poikilocytosis 1+, Ovalocytes 1+, PUBS MCHC 33.4, Fld Total RBCs Counted 100 12/30/16 0252: Lactic Acid Cancelled 12/30/16 0005: Lactic Acid 2.0 12/29/16 2030: Troponin I 0.15 *H 12/29/16 2030: Lactic Acid 3.6 H 12/29/16 1339: Anion Gap 17 H, Estimated GFR > 60, BUN/Creatinine Ratio 32.2 H, Glucose 159 H, Lactic Acid 3.8 H, Calcium 9.8, Total Bilirubin 1.2, AST 133 H, ALT 53 H, Alkaline Phosphatase 112, Creatine Kinase 9679 H, Troponin I 0.14 *H, Total Protein 7.8, Albumin 4.3, Globulin 3.5, Albumin/Globulin Ratio 1.2, TSH 0.122 L , Free T4 1.78, CBC w Diff MAN DIFF ORDERED, RBC 4.93, MCV 86.6, MCH 28.7, RDW 13.4, MPV 8.0, Gran % 93.8 H, Lymphocytes % 4.9 L, Monocytes % 1.3 L, Eosinophils % 0, Basophils % 0 L, Absolute Granulocytes 24.6 H, Segmented Neutrophils 80 H, Band Neutrophils 14 H, Absolute Lymphocytes 1.3, Lymphocytes 4 L, Monocytes 2, Absolute Monocytes 0.3, Absolute Eosinophils 0, Absolute Basophils 0, Normocytic RBCs VERIFIED, Normochromic RBCs VERIFIED, PUBS MCHC 33.1 Microbiology 12/30 0700 URINE ROUT: Urine Culture - RECD 12/29 1654 BLOOD: Blood Culture - CAN Cancelled: DUPLICATE - SEE [id number] 12/29 1654 BLOOD: Blood Culture - CAN Cancelled: DUPLICATE - SEE [id number] 12/29 1420 BLOOD: Blood Culture - RES GRAM NEGATIVE RODS 12/29 1400 BLOOD: Blood Culture - RES GRAM NEGATIVE RODS 12/29 1323 URINE ROUT: Urine Culture - COLB Assessment/Plan Assessment: Patient is a 71-year-old female with past medical history of left breast cancer status post mastectomy currently on an anastrozole, MS, osteoarthritis, hyperlipidemia, status post left knee replacement who was brought into the ED by her son for the evaluation of a fall and weakness apparently mechanical. Plan 1.Sepsis of urological origin (fever, white count and due to urine):UA was nitrite and leukocyte esterase positive with 25-50 WBCs. Patient has a neurogenic bladder and is on merbetriq.. -White count trending down -Continue IV hydration with normal saline at 1 50 mL an hour -Lactic acid trended down -Blood cultures positive for gram-negative rods -Patient started on IV ceftriaxone daily pending sensitivities -No urological complaints -IV Tylenol for fever 2.Unwitnessed fall/rhabdomyolysis -No events on the insurance sales agent -ACS ruled out with negative troponins and EKG -CPK levels trending down with aggressive hydration with normal saline IV at 1 50 mL per hour -Trend CPK levels daily -Echocardiogram pending -Orthostatic vitals not done -Holding statin for muscle injury -Physical therapy evaluation for regaining strength 3. Elevated troponins: Likely demand ischemia -Troponins trended down -Echocardiogram pending (last echo in 2011 shows EF of 60% with impaired LV relaxation) -Cardiology consult appreciated(Norbert Staples MD is patient's protection consultant) 4. History of MS -No neurological deficits -Continue baclofen and gabapentin as needed for muscle spasm and neuropathic pain -Continue merbetriq for neurogenic bladder -Dr. Ga in [place] is patient's MS doctor. 5.Transaminitis? Unclear etiology. Nonalcoholic/medical history of hepatitis -LFTs trending down -Consider right upper quadrant ultrasound 6. History of left breast cancer status post mastectomy and radiation/currently on hormonal therapy -Continue anastrozole -Courtsey call to Dr Patterson patient's radiation oncologist 7. Low TSH? Normal free T4. Right Thyroid nodule on CT -We'll cut down on patient's home med levothyroxin from 75 to 50 g -Please consider endocrinology consult to readjust her thyroid medication Heart healthy diet Full code Mild pain pathway Problem List: 1. Rhabdomyolysis 2. Fall 3. Elevated troponin Pain Ratin Pain Location: MUSCLES Pain Goal: Remain pain free Pain Plan: Gabapentin, baclofen Tomorrow's Labs & Rationales: Cbc.. Infection Bep hypokalemia Creatinine kinase rhabdomyolysis... [facility] 12/30/16 1255: Attending MD Review Statement Attending Statement Attending MD Statement: examined this patient, discuss w/resident/PA/PASSENGER TIRE INSPECTOR, agreed w/resident/PA/PASSENGER TIRE INSPECTOR, reviewed EMR data (avail), discussed with nursing, discussed with case mgmt, reviewed images Attending Assessment/Plan: Pt has gram neg rods in her blood likely urological origin. So this is gram- negative septicemia of urological origin in a patient who had a fall, rhabdomyolysis, dehydration and positive troponin likely demand ischemia. We'll continue the IV ceftriaxone, the aggressive IV hydration. Will speak to cardiology about taking her off the monitor as this was likely demand ischemia but will follow closely on the echo. Will follow-up on PT eval and ID of the organism in the blood and hopefully urine.
--- NOTE | 2016-12-30 14:51 | ECHOCARDIOGRAM REPORT ---
LOLY PEREZ Age: 71 : 1945 Gender: F Exam Date: 12/30/2016 11:25 Exam Location: [address] Ht (in): 69 Wt (lb): 183 BSA: 2.03 BP: 108 / 60 Ordering Physician: ERIC BYRD, Referring Physician: ERIC BYRD MD Technologist: Donnie Null [facility] Room Number: 180-1 Indications: Arrhythmia Rhythm: Sinus Technical Quality: Fair FINDINGS Left Ventricle Left ventricular cavity size normal. Left ventricular wall thickness mildly increased. No obvious regional wall motion abnormalities. Left ventricular ejection fraction is estimated at > 60 %. Abnormal relaxation filling pattern of the left ventricle (stage 1 diastolic dysfunction). Right Ventricle Normal right ventricular size and function. Right Atrium Normal right atrial size. Left Atrium Left atrial size at the upper limits of normal. Mitral Valve Mild mitral annular calcification. No mitral stenosis. Trace mitral regurgitation. Aortic Valve Trileaflet aortic valve. No aortic stenosis. Tricuspid Valve Tricuspid valve not well visualized, grossly normal. Trace tricuspid regurgitation. Unable to estimate the right ventricular systolic pressure. Pulmonic Valve Pulmonic valve not well visualized, grossly normal. Pericardium No pericardial effusion. Great Vessels Normal size aortic root and proximal ascending aorta. CONCLUSIONS Left ventricular cavity size normal. Left ventricular wall thickness mildly increased. No obvious regional wall motion abnormalities. Left ventricular ejection fraction is estimated at > 60 %. Abnormal relaxation filling pattern of the left ventricle (stage 1 diastolic dysfunction). Left atrial size at the upper limits of normal. No pericardial effusion. Eduardo Silva M.D. (Electronically Signed) Final Date: 30 December 2016 14:50 MEASUREMENTS (Male / Female) Normal Values 2D ECHO LV Diastolic Diameter PLAX 4.8 cm 4.2 - 5.9 / 3.9 - 5.3 cm LV Systolic Diameter PLAX 2.8 cm 2.1 - 4.0 cm LV Fractional Shortening PLAX 41.7 % 25 - 46 % LV Ejection Fraction 2D Teich 72.5 % IVS Diastolic Thickness 1.3 cm LVPW Diastolic Thickness 1.3 cm LV Relative Wall Thickness 0.5 RV Internal Dim ED PLAX 3.7 cm 1.9 - 3.8 cm LVOT Diameter 2.0 cm Aortic Root Diameter 2.6 cm LA Systolic Diameter LX 3.7 cm 3.0 - 4.0 / 2.7 - 3.8 cm Ascending Aorta Diameter 3.0 cm DOPPLER AV Peak Velocity 161.0 cm/s AV Peak Gradient 10.4 mmHg AV Mean Velocity 96.4 cm/s AV Mean Gradient 5.0 mmHg AV Velocity Time Integral 27.1 cm LVOT Peak Velocity 97.0 cm/s LVOT Peak Gradient 3.8 mmHg LVOT Mean Velocity 63.8 cm/s LVOT Mean Gradient 2.0 mmHg LVOT Velocity Time Integral 18.4 cm LVOT Stroke Volume 57.8 cm AV Area Cont Eq vti 2.1 cm AV Area Cont Eq pk 1.9 cm MV Peak Velocity 73.1 cm/s MV Peak Gradient 2.1 mmHg MV Mean Velocity 41.3 cm/s MV Mean Gradient 1.0 mmHg Mitral E Point Velocity 40.5 cm/s Mitral A Point Velocity 54.3 cm/s Mitral E to A Ratio 0.7 MV PHT Velocity 58.4 cm/s MV Deceleration [place] 161.0 cm/s MV Pressure Half Time 108.8 ms MV Area PHT 2.0 cm MV Deceleration Time 405.0 ms TR Peak Velocity 143.0 cm/s TR Peak Gradient 8.2 mmHg Right Atrial Pressure 5.0 mmHg Pulmonary Artery Systolic Pressu 13.2 mmHg Right Ventricular Systolic Press 13.2 mmHg PV Peak Velocity 117.0 cm/s PV Peak Gradient 5.5 mmHg PV Mean Velocity 81.6 cm/s PV Mean Gradient 3.0 mmHg PV Velocity Time Integral 21.7 cm LV E' Lateral Velocity 11.8 cm/s Mitral E to LV E' Lateral Ratio 3.4 LV E' Septal Velocity 8.4 cm/s Mitral E to LV E' Septal Ratio 4.8
[2016-12-30 16:29] VITALS: BP 122/60
[2016-12-30 23:48] VITALS: BP 142/64
[2016-12-31 07:48] VITALS: BP 160/80
[2016-12-31 08:08] LABS: ABSOLUTE BASOPHIL COUNT 0 /CUMM (0.0-0.2); ABSOLUTE EOSINOPHIL COUNT 0 /CUMM (0.0-0.7); ABSOLUTE GRANULOCYTE CT 10.7 /CUMM (1.4-6.5); ABSOLUTE LYMPH COUNT 1.6 /CUMM (1.2-3.4); ABSOLUTE MONOCYTE COUNT 0.7 /CUMM (0.10-0.60); BASOPHIL % 0.2 % (0.0-2.0); EOSINOPHIL % 0.1 % (0-5); MEAN CORPUSCULAR HGB 28.9 PG (27.0-31.0); MEAN CORPUSCULAR HGB CONC 33.4 G/DL (33.0-37.0); MEAN CORPUSCULAR VOLUME 86.3 FL (81.0-99.0); MEAN PLATELET VOLUME 9.1 FL (7.4-10.4); PLATELET COUNT 138 /CUMM (130-400); RBC DISTRIBUTION WIDTH 13.6 % (11.5-14.5)
--- NOTE | 2016-12-31 08:33 | PN- Housestaff ---
[facility] 12/31/16 0814: Subjective Follow-up For: Urosepsis Mild rhabdomyolysis due to fall Complaints: weakness, and lethargy Tele-Events Since Last Visit: [facility] Subjective: Patient continues to feel weak and lethargic. Denies any nausea, vomiting, abdominal pain, chest pain, palpitations or bowel symptoms. Spiked a fever of 101 at 7:48 AM. Blood cultures growing gram-negative rods. Has been started on IV ceftriaxone. Awaiting culture and sensitivities. Review of Systems Constitutional: Reports: malaise, weakness. EENTM: Reports: no symptoms. Cardiovascular: Reports: no symptoms. Respiratory: Reports: no symptoms. Gastrointestinal: Reports: no symptoms. Musculoskeletal: Reports: joint swelling, muscle pain, muscle stiffness. Skin: Reports: change in skin color, lesions. Objective Last 24 Hrs of Vital Signs/I&O Vital Signs Date Time Temp Pulse Resp B/P Pulse O2 O2 Flow FiO2 Ox Delivery Rate 12/31 0748 101.0 75 20 160/80 95 Room Air 12/31 0000 96 12/30 2348 98.9 73 20 142/64 95 Room Air 12/30 1629 99.8 76 20 122/60 96 Room Air 12/30 1013 99.7 12/30 0911 100.5 75 18 128/68 94 Room Air Intake & Output 12/31 1600 12/31 0800 12/31 0000 Intake Total 840 120 Output Total 650 200 Balance 190 -80 Intake, IV 600 Intake, Oral 240 120 Output, Urine 650 200 Physical Exam General Appearance: Alert, Oriented X3, Cooperative, Mild Distress Skin: small hematoma to the left elbow. Mastectomy scar in the left chest.Small open blistered area on the chest wallon the left side. Right arm cold and swollen. Multiple open blisters in the armsand legs seen. No drainage. Some fluid-filled blisters in the legs. HEENT: PERRLA, EOMI, small hematoma over the left eyebrow, dry mucous membranes Neck: No JVD Lymphatic: Cervical nl Cardiovascular: Regular Rate, Normal S1, Normal S2, systolic murmur Lungs: Clear to Auscultation, Normal Air Movement Abdomen: Normal Bowel Sounds, Soft, No Tenderness Neurological: Normal Gait, weakness in all 4 extremities. Diminished light touch sensation in the left leg up to the knee. Extremities: No Clubbing, No Cyanosis, No Edema, Normal Pulses, SOME FLUID- FILLED BLISTERS ARE SEEN OVER THE LEGS. nO DRAINAGE. lEFT KNEE SURGICAL SCAR. SCARRING OVER BOTH LOWER EXTREMITIES., RESTRICTED RANGE OF MOTION OF THE RIGHT WRIST. Current Medications: Current Medications Sig/Francy Start time Last Medication Dose Route Stop Time Status Admin Acetaminophen 325 MG Q6-PRN PRN 12/29 1530 AC 12/30 PO 1013 Alprazolam 0.5 MG Q6-PRN PRN 12/30 1415 AC 12/30 PO 01/06 1414 2121 Alprazolam 0.5 MG ONCE ONE 12/30 0930 DC 12/30 PO 12/30 0931 1015 Anastrozole 1 MG DAILY 12/29 1533 AC 12/30 PO 1013 Baclofen 10 MG DAILY NEEDED PRN 12/29 1545 AC PO Ceftriaxone Sodium 1,000 MG DAILY 12/31 1000 AC IV Enoxaparin Sodium 40 MG DAILY 12/29 1518 AC 12/30 SC 1014 Gabapentin 100 MG TID PRN 12/29 1545 AC 12/30 PO 1828 Levothyroxine Sodium 0.05 MG DAILY AC 12/30 0700 AC 12/31 PO 0637 Mirabegron 50 MG DAILY 12/29 1600 AC 12/30 PO 1012 Paroxetine HCl 20 MG DAILY 12/30 1000 AC 12/30 PO 1014 Potassium Chloride 20 MEQ Q10H 12/30 1415 AC 12/31 Sodium Chloride 1,000 ML IV 0648 Sodium Chloride 1,000 ML Q6H 12/30 0930 DC 12/30 IV 1013 Timolol Maleate 1 GTT BID 12/29 1538 AC 12/30 OPH 2121 Last 24 Hrs of Lab/Waqar Results Last 24 Hrs of Labs/Mics: Laboratory Tests 12/31/16 0651: Anion Gap 4 L, Estimated GFR > 60, BUN/Creatinine Ratio 26.0 H, Creatine Kinase 2743 H, CBC w Diff Pending, WBC Pending, RBC Pending, Hgb Pending, Hct Pending, MCV Pending, MCH Pending, RDW Pending, Plt Count Pending, MPV Pending, PUBS MCHC Pending Assessment/Plan Assessment: Patient is a 71-year-old female with past medical history of left breast cancer status post mastectomy currently on an anastrozole, MS, osteoarthritis, hyperlipidemia, status post left knee replacement who was brought into the ED by her son for the evaluation of a fall and weakness apparently mechanical. Plan 1.Sepsis of urological origin : Spiked a fever of 101 AT 7.48 AM. -White count trending down. -We'll do a CT scan of abdomen and pelvis with contrast to rule out developing abscess since the patient spiked despite being on antibiotics. -Continue IV hydration with normal saline at 1 50 mL an hour -Continue on IV ceftriaxone day 2 pending sensitivities -Blood cultures positive for gram-negative rods -No urological complaints.Patient has a neurogenic bladder and is on merbetriq.. -IV Tylenol for fever 2.Unwitnessed fall/rhabdomyolysis -CPK levels trending down with aggressive hydration with normal saline IV at 100 mL per hour -Trend CPK levels daily -Holding statin for muscle injury -X-ray right wrist to rule out fracture -Physical therapy evaluation for regaining strength -Patient needs a new walker, reports a previous walker was not functioning properly. - Plan for Safe discharge/STR placement 3. Elevated troponins: Likely demand ischemia -Troponins trended down -ACS ruled out with negative troponins and EKG -Echocardiogram shows EF of more than 60%, no wall motion abnormalities, stage I diastolic dysfunction. 4. History of MS -No neurological deficits -Continue baclofen and gabapentin as needed for muscle spasm and neuropathic pain -Continue merbetriq for neurogenic bladder -Dr. Ga in [place] is patient's MS doctor. 5. Multiple blisters opened/fluid-filled over the body? [place] -Patient reports the blisters are secondary to overheating in her apartment. -Wound care nurse Veor barker. Will see the patient today. -Social work consult given unclear etiology of the blisters. Evaluation of home situation required. 6. History of left breast cancer status post mastectomy and radiation/currently on hormonal therapy -Continue anastrozole -Courtsey call to Dr Ptaterson patient's radiation oncologist 7. Low TSH? Normal free T4. Right Thyroid nodule on CT -We'll cut down on patient's home med levothyroxin from 75 to 50 g -Please consider endocrinology consult to readjust her thyroid medication Heart healthy diet Full code Mild pain pathway Problem List: 1. Fall 2. Rhabdomyolysis Pain Ratin Pain Location: MUSCLES Pain Goal: Remain pain free Pain Plan: Gabapentin, baclofen Tomorrow's Labs & Rationales: Cbc.. Infection Bep hypokalemia Creatinine kinase rhabdomyolysis... [facility] 12/31/16 1344: Attending MD Review Statement Attending Statement Attending MD Statement: examined this patient, discuss w/resident/PA/ASSEMBLING MACHINE OPERATOR, agreed w/resident/PA/ASSEMBLING MACHINE OPERATOR, reviewed EMR data (avail), discussed with nursing, discussed with case mgmt, reviewed images Attending Assessment/Plan: Patient continues to feel very weak and tired. She spiked to 101 today. We are treating gram-negative sepsis of presumed urological origin with IV ceftriaxone. Obviously I'm concerned that she spiking 48 hours into antibiotic therapy and will get a CT abdomen and pelvis with IV contrast to make sure there is no abscess there. I called wound care consult for these? heat related Blisters and also called a social work consult to clarify the home situation. The echocardiogram didn't show any acute wall motion abnormalities and we are treating her with IV hydration for a mild rhabdo and severe dehydration. I verbally spoke to Dr. Larios who is treating her for breast CA with anastrozole and Herceptin and radiation treatment and he is aware that she is here and will need outpatient follow-up on discharge.
--- NOTE | 2016-12-31 11:13 | PN- Cardiology ---
Subjective Subjective: Patient denies chest pain or shortness of breath. Review of Systems: Eyes no blurred or double vision Ears no deafness or ringing Nose and throat no recurrent sinusitis Lungs per history of present illness Heart per history of present illness Abdomen no nausea vomiting Musculoskeletal occasional muscle and joint pains Psych no anxiety or depression Neuro without recurrent headache or seizures Endocrine no heat or cold intolerance Objective Vital Signs and I&Os Vital Signs Date Time Temp Pulse Resp B/P Pulse O2 O2 Flow FiO2 Ox Delivery Rate 12/31 1043 Room Air 12/31 0859 101.0 12/31 0748 101.0 75 20 160/80 95 Room Air 12/31 0000 96 12/30 2348 98.9 73 20 142/64 95 Room Air 12/30 1629 99.8 76 20 122/60 96 Room Air Intake & Output 12/31 1600 12/31 0800 12/31 0000 12/30 1600 12/30 0800 12/30 0000 Intake Total 147 022 5017 700 240 Output Total 650 200 750 Balance 190 -80 575 700 240 Intake, IV 600 800 Intake, Oral 240 120 525 700 240 Output, Urine 650 200 750 Physical Exam: Patient is a well-developed well-nourished female appearing in no acute distress HEENT is unremarkable Neck is supple there is no JVD Lungs are clear Heart regular rhythm S1 and S2 are normal no murmurs gallops or rubs Abdomen bowel sounds positive Extremities without edema Current Medications: Current Medications Sig/Francy Start time Last Medication Dose Route Stop Time Status Admin Acetaminophen 325 MG Q6-PRN PRN 12/29 1530 AC 12/31 PO 0859 Alprazolam 0.5 MG Q6-PRN PRN 12/30 1415 AC 12/31 PO 01/06 1414 0900 Anastrozole 1 MG DAILY 12/29 1533 AC 12/31 PO 0901 Baclofen 10 MG DAILY NEEDED PRN 12/29 1545 AC PO Ceftriaxone Sodium 1,000 MG DAILY 12/31 1000 AC 12/31 IV 0855 Enoxaparin Sodium 40 MG DAILY 12/29 1518 AC 12/31 SC 0900 Gabapentin 100 MG TID PRN 12/29 1545 AC 12/30 PO 1828 Levothyroxine Sodium 0.05 MG DAILY AC 12/30 0700 AC 12/31 PO 0637 Mirabegron 50 MG DAILY 12/29 1600 AC 12/31 PO 0855 Paroxetine HCl 20 MG DAILY 12/30 1000 AC 12/31 PO 0859 Potassium Chloride 40 MEQ ONCE ONE 12/31 0830 DC 12/31 PO 12/31 0831 0917 Potassium Chloride 20 MEQ Q10H 12/30 1415 AC 12/31 Sodium Chloride 1,000 ML IV 0648 Sodium Chloride 1,000 ML Q6H 12/30 0930 DC 12/30 IV 1013 Timolol Maleate 1 GTT BID 12/29 1538 AC 12/31 OPH 0922 Results Last 48 Hrs of Labs/Mics: Laboratory Tests 12/31/16 0651: Anion Gap 4 L, Estimated GFR > 60, BUN/Creatinine Ratio 26.0 H, Creatine Kinase 2743 H, CBC w Diff NO MAN DIFF REQ, RBC 3.70 L, MCV 86.3, MCH 28.9, RDW 13.6, MPV 9.1, Gran % 82.0 H, Lymphocytes % 12.3 L, Monocytes % 5.4, Eosinophils % 0.1, Basophils % 0.2, Absolute Granulocytes 10.7 H, Absolute Lymphocytes 1.6, Absolute Monocytes 0.7 H, Absolute Eosinophils 0, Absolute Basophils 0, PUBS MCHC 33.4 12/30/16 0700: Urinalysis MOD H, Urine Color YEL, Urine Clarity HAZY H, Urine pH 6.0, Ur Specific Nathalie >= 1.030, Urine Protein 100 H, Urine Ketones TRACE H, Urine Nitrite POS H, Urine Bilirubin NEG, Urine Urobilinogen 0.2, Ur Leukocyte Esterase MOD H, Ur Microscopic SEDIMENT EXAMINED, Urine RBC 3-5, Urine WBC 25- 50 H, Ur Epithelial Cells RARE, Urine Bacteria MANY H, Urine Hemoglobin LARGE H, Urine Glucose NEG 12/30/16 0305: Troponin I 0.13 *H 12/30/16 0305: Anion Gap 9, Estimated GFR > 60, BUN/Creatinine Ratio 37.1 H, Total Bilirubin 0.8, Direct Bilirubin 0.2, AST 120 H, ALT 56 H, Alkaline Phosphatase 92, Creatine Kinase 6854 H, Total Protein 5.9 L, Albumin 3.1 L, CBC w Diff MAN DIFF ORDERED, RBC 4.09 L, MCV 86.2, MCH 28.8, RDW 13.2, MPV 9.1, Gran % 86.9 H , Lymphocytes % 8.3 L, Monocytes % 4.4, Eosinophils % 0, Basophils % 0.4, Absolute Granulocytes 15.9 H, Segmented Neutrophils 84 H, Band Neutrophils 4, Absolute Lymphocytes 1.5, Lymphocytes 9 L, Monocytes 3, Absolute Monocytes 0.8 H, Absolute Eosinophils 0, Absolute Basophils 0.1, Platelet Estimate ADEQUATE, Polychromasia 1+, Poikilocytosis 1+, Ovalocytes 1+, PUBS MCHC 33.4, Fld Total RBCs Counted 100 12/30/16 0252: Lactic Acid Cancelled 12/30/16 0005: Lactic Acid 2.0 12/29/16 2030: Troponin I 0.15 *H 12/29/16 2030: Lactic Acid 3.6 H 12/29/16 1339: Anion Gap 17 H, Estimated GFR > 60, BUN/Creatinine Ratio 32.2 H, Glucose 159 H, Lactic Acid 3.8 H, Calcium 9.8, Total Bilirubin 1.2, AST 133 H, ALT 53 H, Alkaline Phosphatase 112, Creatine Kinase 9679 H, Troponin I 0.14 *H, Total Protein 7.8, Albumin 4.3, Globulin 3.5, Albumin/Globulin Ratio 1.2, TSH 0.122 L , Free T4 1.78, CBC w Diff MAN DIFF ORDERED, RBC 4.93, MCV 86.6, MCH 28.7, RDW 13.4, MPV 8.0, Gran % 93.8 H, Lymphocytes % 4.9 L, Monocytes % 1.3 L, Eosinophils % 0, Basophils % 0 L, Absolute Granulocytes 24.6 H, Segmented Neutrophils 80 H, Band Neutrophils 14 H, Absolute Lymphocytes 1.3, Lymphocytes 4 L, Monocytes 2, Absolute Monocytes 0.3, Absolute Eosinophils 0, Absolute Basophils 0, Normocytic RBCs VERIFIED, Normochromic RBCs VERIFIED, PUBS MCHC 33.1 Recent Imaging Studies: Echocardiogram CONCLUSIONS Left ventricular cavity size normal. Left ventricular wall thickness mildly increased. No obvious regional wall motion abnormalities. Left ventricular ejection fraction is estimated at > 60 %. Abnormal relaxation filling pattern of the left ventricle (stage 1 diastolic dysfunction). Left atrial size at the upper limits of normal. No pericardial effusion. Eduardo Silva M.D. Assessment/Plan Assessment/Plan 1. Minimally elevated troponin in the setting of rhabdomyolysis no wall motion abnormalities noted on echocardiogram 2. Fall, possibly mechanical; rule out syncope 3. History of breast cancer 4. Multiple sclerosis 5. Significant leukocytosis secondary to UTI 6. Elevated lactic acid level Recommendations: 1. Continue hydration 2. Continue antibiotics for UTI Patient is stable from the cardiac standpoint will follow when necessary Continue telemetry? Not applicable
--- NOTE | 2016-12-31 15:11 | CT SCAN REPORT ---
EXAMINATION: CT ABDOMEN AND PELVIS WITH CONTRAST CLINICAL INFORMATION: Spiking fevers. Evaluate for intra-abdominal abscess. COMPARISON: CT scan of the chest, abdomen and pelvis dated 11/18/2016, 12/22/2015, 03/24/2015. TECHNIQUE: Multidetector CT volumetric acquisition of the abdomen and pelvis was performed after the administration of 94 mL of intravenous Optiray 320. The data set was reformatted in the sagittal and coronal planes and reviewed on an independent workstation. DLP: 568.03 mGy-cm. FINDINGS: LOWER CHEST: Linear subsegmental atelectasis in lingula and right lower lobe. Small retrocardiac hiatal hernia. LIVER, GALLBLADDER, BILIARY TREE: Liver normal size and attenuation. There is a faint 0.4 cm low-attenuation mass in segment 4 a (series 2, image 15), too small to characterize, but most consistent with a benign finding, unchanged dating back to at least 03/24/2015. No suspicious focal cystic or solid mass or intra-or extrahepatic ductal dilatation. Hepatic and portal veins patent. Gallbladder partially distended and within normal limits. PANCREAS: Mild fatty infiltration of the pancreatic head. No ductal dilatation, mass, or surrounding stranding. SPLEEN: Normal size and appearance. Splenic vein patent. ADRENAL GLANDS AND KIDNEYS: Adrenal glands normal. Kidneys bilaterally symmetric in size and function. No hydronephrosis, nephrolithiasis or perinephric stranding. Several bilateral thin-walled benign-appearing renal cysts as seen, progressively increasing in size when compared to prior studies with the largest cyst arising in an exophytic fashion from the lower pole of the left kidney, now measuring 6.4 x 6.8 cm as compared to 6.2 x 6.8 cm (11/18/2016) and 6.1 x 6.4 cm (03/24/2015). In the posterior upper pole of the left kidney, a 2.9 x 2.2 cm low-attenuation mass with mean attenuation values of 47 Hounsfield units is seen (series 2, image 26), demonstrating indistinct margins and apparent wall thickening and surrounding perinephric stranding. This mass had previously appeared smaller and simple cystic, measuring 1.2 x 1.3 cm (11/18/2016) and 0.8 x 0.9 cm (03/24/2015). Findings may be due to interim internal hemorrhage into a cyst. URETERS AND BLADDER: Ureters decompressed and within normal limits. Bladder partially distended and within normal limits. PELVIC ORGANS: Uterus and right ovary unremarkable. Stable coarse 1 cm calcification in the left ovary is again seen, unchanged dating back to 03/24/2015. There is a large approximately 4 x 3.4 cm high density mass seen in the posterior left labia majora (series 2, image 90), most consistent with a proteinaceous or hemorrhagic Bartholin gland cyst, not significantly changed dating back to 08/03/2010. GASTROINTESTINAL TRACT: Mild sigmoid colonic diverticulosis with no evidence of acute diverticulitis. Small and large bowel loops decompressed. Appendix not visualized. ABDOMINAL WALL: Small fat-containing umbilical hernia is seen. Small calcified granulomas are seen in the buttocks bilaterally. LYMPHOVASCULAR STRUCTURES: Abdominal aorta normal in caliber. No periaortic collections. No abdominal or pelvic adenopathy or free fluid collection. BONES: Mild convex left lumbar scoliosis, and chronic superior endplate compression deformities of T12 and L1 again seen, unchanged. Chronic Paget's disease of the L4 vertebra is also stable. Mild facet arthropathy seen in the mid and lower lumbar spine. Mild vertebral spondylosis seen in the lower thoracic spine with associated mild degenerative disc disease. IMPRESSION: 1. No acute intra-abdominal abscess collection or mass is seen. 2. Mild sigmoid colonic diverticulosis with no evidence of acute diverticulitis. 3. Interval enlargement of a cystic mass in the upper pole of the left kidney is seen, now appearing more indistinct and hyperdense with surrounding mild fat stranding. Findings may be related to spontaneous hemorrhage into a renal cyst. Close attention on short interval follow-up renal MRI scan in 3 months is recommended, unless the patient is symptomatic and this workup is clinically indicated sooner. 4. Incidental findings of small retrocardiac hiatal hernia, small fat-containing umbilical hernia, stable coarse left ovarian calcification, proteinaceous or hemorrhagic left Bartholin gland cyst, and Paget's disease of L4 again seen, unchanged.
--- NOTE | 2016-12-31 15:52 | RADIOLOGY REPORT ---
EXAMINATION: XR WRIST, RIGHT CLINICAL INFORMATION: Pain in the wrist. Evaluate for fracture. COMPARISON: None. TECHNIQUE: 5 views of the right wrist. FINDINGS: Diffuse osteopenia. No acute fracture, dislocation, radiopaque foreign body or soft tissue calcification. Mild soft tissue swelling over the dorsum and radial aspect of the wrist. Moderate degenerative change at the first carpometacarpal joint with joint space narrowing, spurring and cystic change seen. Mild cystic changes seen in the intercarpal joints. IMPRESSION: 1. Mild soft tissue swelling about the wrist. No acute fracture. 2. Moderate degenerative changes at the first carpometacarpal joint and mild degenerative changes in the intercarpal joints.
[2016-12-31 16:13] VITALS: BP 144/92
[2016-12-31 22:42] VITALS: BP 148/98
[2017-01-01 06:00] VITALS: BP 140/76
[2017-01-01 08:07] LABS: ABSOLUTE BASOPHIL COUNT 0 /CUMM (0.0-0.2); ABSOLUTE EOSINOPHIL COUNT 0 /CUMM (0.0-0.7); ABSOLUTE GRANULOCYTE CT 11.5 /CUMM (1.4-6.5); ABSOLUTE LYMPH COUNT 1.7 /CUMM (1.2-3.4); ABSOLUTE MONOCYTE COUNT 0.9 /CUMM (0.10-0.60); BASOPHIL % 0.1 % (0.0-2.0); EOSINOPHIL % 0.3 % (0-5); GRANULOCYTE % 81.7 % (42.2-75.2); HEMATOCRIT 32.1 % (37-47); MEAN CORPUSCULAR HGB 28.9 PG (27.0-31.0); MEAN CORPUSCULAR HGB CONC 33.3 G/DL (33.0-37.0); MEAN CORPUSCULAR VOLUME 86.9 FL (81.0-99.0); MEAN PLATELET VOLUME 9.2 FL (7.4-10.4); PLATELET COUNT 134 /CUMM (130-400); RBC DISTRIBUTION WIDTH 13.9 % (11.5-14.5); WHITE BLOOD CELL COUNT 14.1 /CUMM (4.8-10.8)
--- NOTE | 2017-01-01 10:36 | PN- Att Addend ---
Attending Addendum Attending Brief Note Patient seen and examined. Plan of care discussed with the medical team and the patient. Available lab work and radiology test reports were reviewed. Patient was transferred to overnight from telemetry. Her MAXIMUM TEMPERATURE is 102.2. She complains of right wrist and forearm pain. Vital Signs Date Time Temp Pulse Resp B/P Pulse O2 O2 Flow FiO2 Ox Delivery Rate 01/01 06 99.5 88 20 140/76 95 Room Air 01/01 0500 99.0 01/01 0045 102.2 12/31 2242 99.6 87 20 148/98 97 Room Air 12/31 1613 99.4 86 20 144/92 95 Room Air 12/31 1608 99.9 12/31 1132 99.4 12/31 1130 99.4 12/31 1043 Room Air Intake & Output 01/01 1600 01/01 0800 01/01 0000 Intake Total 200 Output Total 100 Balance 100 Intake, IV 100 Intake, Oral 100 Number 0 Bowel Movements Output, Urine 100 Exam: General: Patient awake alert oriented without any distress CVS: S1 plus S2 without any murmur or gallops Chest: Few scattered crepitation without any wheeze. There is no respiratory distress. 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 follows command appropriately Extremities: No edema; no clubbing or cyanosis noted; she is unable to lift right hand. Right forearm has a superficial erosion and redness and warmth over the dorsal aspect of forearm. Laboratory Tests 01/01 630 Hematology CBC w Diff NO MAN DIFF REQ WBC (4.8 - 10.8 /CUMM) 14.1 H RBC (4.20 - 5.40 /CUMM) 3.70 L Hgb (12.0 - 16.0 G/DL) 10.7 L Hct (37 - 47 %) 32.1 L MCV (81.0 - 99.0 FL) 86.9 MCH (27.0 - 31.0 PG) 28.9 RDW (11.5 - 14.5 %) 13.9 Plt Count (130 - 400 /CUMM) 134 MPV (7.4 - 10.4 FL) 9.2 Gran % (42.2 - 75.2 %) 81.7 H Lymphocytes % (20.5 - 51.1 %) 11.9 L Monocytes % (1.7 - 9.3 %) 6.0 Eosinophils % (0 - 5 %) 0.3 Basophils % (0.0 - 2.0 %) 0.1 Absolute Granulocytes (1.4 - 6.5 /CUMM) 11.5 H Absolute Lymphocytes (1.2 - 3.4 /CUMM) 1.7 Absolute Monocytes (0.10 - 0.60 /CUMM) 0.9 H Absolute Eosinophils (0.0 - 0.7 /CUMM) 0 Absolute Basophils (0.0 - 0.2 /CUMM) 0 PUBS MCHC (33.0 - 37.0 G/DL) 33.3 Wrist x-ray 1. Mild soft tissue swelling about the wrist. No acute fracture. 2. Moderate degenerative changes at the first carpometacarpal joint and mild degenerative changes in the intercarpal joints. CT abdomen and pelvis 1. No acute intra-abdominal abscess collection or mass is seen. 2. Mild sigmoid colonic diverticulosis with no evidence of acute diverticulitis. 3. Interval enlargement of a cystic mass in the upper pole of the left kidney is seen, now appearing more indistinct and hyperdense with surrounding mild fat stranding. Findings may be related to spontaneous hemorrhage into a renal cyst. Close attention on short interval follow-up renal MRI scan in 3 months is recommended, unless the patient is symptomatic and this workup is clinically indicated sooner. 4. Incidental findings of small retrocardiac hiatal hernia, small fat-containing umbilical hernia, stable coarse left ovarian calcification, proteinaceous or hemorrhagic left Bartholin gland cyst. Assessment * Sepsis a few likely revision * Recurrent fever likely due to cellulitis of right forearm * Rhabdomyolysis * History of MS * Elevated troponin likely demand ischemia Plan * Switch antibiotics to cefazolin IV * Obtain x-ray of the right forearm to rule out gas in the soft tissue * Elevate right forearm * Obtain blood cultures if patient spikes temperature again * Check CBC tomorrow * Encourage oral fluids * Change IV site From right wrist to left arm
--- NOTE | 2017-01-01 10:57 | PN- Housestaff ---
Subjective Follow-up For: Urosepsis ? Cellulitis of the right arm Rhabdomyolysis History of MS Complaints: patient continues to have weakness and fatigue. The swelling in her right wrist has increased extending up to her forearm. Subjective: Patient continues to have weakness and malaise. Heart wrist swelling has increased and now it's hot and tender. Some crepitus was felt during examination. Patient spiked a fever of 102.2 this morning despite being on antibiotics. Denies any urinary symptoms. Review of Systems Constitutional: Reports: fever, malaise, weakness. EENTM: Reports: no symptoms. Cardiovascular: Reports: no symptoms. Respiratory: Reports: no symptoms. Gastrointestinal: Reports: no symptoms. Genitourinary: Reports: no symptoms. Musculoskeletal: Reports: no symptoms, joint pain (right wrist pain), joint swelling. Objective Last 24 Hrs of Vital Signs/I&O Vital Signs Date Time Temp Pulse Resp B/P Pulse O2 O2 Flow FiO2 Ox Delivery Rate 01/01 06 99.5 88 20 140/76 95 Room Air 01/01 0500 99.0 01/01 0045 102.2 12/31 2242 99.6 87 20 148/98 97 Room Air 12/31 1613 99.4 86 20 144/92 95 Room Air 12/31 1608 99.9 12/31 1132 99.4 12/31 1130 99.4 12/31 1043 Room Air Intake & Output 01/01 1600 01/01 0800 01/01 0000 Intake Total 200 Output Total 100 Balance 100 Intake, IV 100 Intake, Oral 100 Number 0 Bowel Movements Output, Urine 100 Physical Exam General Appearance: Alert, Oriented X3, Cooperative, No Acute Distress Skin: right forearm heart and tender. Some crepitations noted. Severe restriction of motion., small hematoma over the left elbow. An skin break over the right upper arm., mastectomy scar over the left chest. Some blistered areas on the left chest.some fluid-filled blisters on the arms and legs. No drainage from blisters. HEENT: Atraumatic, PERRLA, EOMI Neck: Supple, No JVD Lymphatic: Cervical nl Cardiovascular: Regular Rate, Normal S1, Normal S2, No Murmurs Lungs: Clear to Auscultation, Normal Air Movement Abdomen: Normal Bowel Sounds, Soft, No Tenderness, No Hepatospenomegaly Neurological: decreased power in all 4 extremities, decreaed light tough sensation uver the left foot till the knee Extremities: No Clubbing, No Cyanosis, No Edema Current Medications: Current Medications Sig/Francy Start time Last Medication Dose Route Stop Time Status Admin Acetaminophen 325 MG Q6-PRN PRN 12/29 1530 AC 01/01 PO 0045 Alprazolam 0.5 MG Q6-PRN PRN 12/30 1415 AC 01/01 PO 01/06 1414 0938 Anastrozole 1 MG DAILY 12/29 1533 AC 01/01 PO 0936 Baclofen 10 MG DAILY NEEDED PRN 12/29 1545 AC PO Cefazolin Sodium 2 GM IQ8 01/01 1600 AC N/A 1 UNIT IV Ceftriaxone Sodium 1,000 MG DAILY 12/31 1000 DC 12/31 IV 0855 Enoxaparin Sodium 40 MG DAILY 12/29 1518 AC 01/01 SC 0936 Gabapentin 100 MG TID PRN 12/29 1545 AC 12/30 PO 1828 Levothyroxine Sodium 0.05 MG DAILY AC 12/30 0700 AC 01/01 PO 0635 Mirabegron 50 MG DAILY 12/29 1600 AC 01/01 PO 0936 Paroxetine HCl 20 MG DAILY 12/30 1000 AC 01/01 PO 0937 Patient Medication 1 ED ONE ONE 12/31 1200 DC Teaching ED 12/31 1201 Potassium Chloride 20 MEQ Q10H 12/30 1415 DC 12/31 Sodium Chloride 1,000 ML IV 0923 Timolol Maleate 1 GTT BID 12/29 1538 AC 01/01 OPH 0938 Last 24 Hrs of Lab/Waqar Results Last 24 Hrs of Labs/Mics: Laboratory Tests 01/01/17 0630: CBC w Diff NO MAN DIFF REQ, RBC 3.70 L, MCV 86.9, MCH 28.9, RDW 13.9, MPV 9.2, Gran % 81.7 H, Lymphocytes % 11.9 L, Monocytes % 6.0, Eosinophils % 0.3, Basophils % 0.1, Absolute Granulocytes 11.5 H, Absolute Lymphocytes 1.7, Absolute Monocytes 0.9 H, Absolute Eosinophils 0, Absolute Basophils 0, PUBS MCHC 33.3 Assessment/Plan Assessment: Patient is a 71-year-old female with past medical history of left breast cancer status post mastectomy currently on an anastrozole, MS, osteoarthritis, hyperlipidemia, status post left knee replacement who was brought into the ED by her son for the evaluation of a fall and weakness apparently mechanical. Plan 1.Sepsis of urological origin : Spiked a fever of 102.2 around midnight -White count up this am compared to yesterday -CT abdomen and pelvis showed no abscess or mass. -IV fluids stopped. Patent patient tolerating diet. -Antibiotics changed to IV cefazolin today , the 3 of antibiotics -Blood and urine cultures positive Escherichia coli -No urological complaints.Patient has a neurogenic bladder and is on merbetriq.. -IV Tylenol for fever 2. Right arm cellulitis -X-rays of the right hand showed no fracture -Crepitus on examination, x-ray of the hand pending to rule out necrotizing fasciitis -Antibiotics changed to IV cefazolin. Escherichia coli was pansensitive to all antibiotics -ID consult appreciated regarding the choice of antibiotics as patient's spiking despite being covered with sensitive antibiotics. 3. Unwitnessed fall/rhabdomyolysis -CPK levels trending down with aggressive hydration with normal saline IV at 100 mL per hour -Holding statin for muscle injury -X-ray right wrist to rule out fracture negative for fracture -Physical therapy evaluation for regaining strength -Patient needs a new walker, reports a previous walker was not functioning properly. - Plan for Safe discharge/STR placement 4. Elevated troponins: Likely demand ischemia -Troponins trended down -ACS ruled out with negative troponins and EKG -Echocardiogram shows EF of more than 60%, no wall motion abnormalities, stage I diastolic dysfunction. 5. History of MS -No neurological deficits -Continue baclofen and gabapentin as needed for muscle spasm and neuropathic pain -Continue merbetriq for neurogenic bladder -Dr. Ga in [place] is patient's MS doctor. 6. Multiple blisters opened/fluid-filled over the body? [place] -Patient reports the blisters are secondary to overheating in her apartment. -Wound care nurse Vero barker. Will see the patient today. -Social work consult given unclear etiology of the blisters. Evaluation of home situation required. 7. History of left breast cancer status post mastectomy and radiation/currently on hormonal therapy -Continue anastrozole -Courtsey call to Dr Patterson patient's radiation oncologist 8. Low TSH? Normal free T4. Right Thyroid nodule on CT -We'll cut down on patient's home med levothyroxin from 75 to 50 g -Please consider endocrinology consult to readjust her thyroid medication Heart healthy diet Full code Mild pain pathway Problem List: 1. Fall 2. Rhabdomyolysis 3. UTI (urinary tract infection) 4. Cellulitis Pain Ratin Pain Location: arm Pain Goal: Pain 4 or less Pain Plan: Gabapentin, baclofen, tylenol Tomorrow's Labs & Rationales: cbc infection bep hypokalemia
--- NOTE | 2017-01-01 11:20 | RADIOLOGY REPORT ---
EXAMINATION: XR HUMERUS, RIGHT Right wrist series right elbow series CLINICAL INFORMATION: Gas in soft tissues. Cellulitis. COMPARISON: None TECHNIQUE: AP and lateral views of the right humerus, right elbow and right wrist FINDINGS: Right humerus: The bone and surrounding soft tissues are normal. I do not see air Right elbow: There is generalized soft tissue swelling including the olecranon bursal area compatible with edema and/or cellulitis. I do not see air Right wrist: There is generalized soft tissue swelling compatible with edema and/or cellulitis. I do not see air. There is prominent severe arthrosis of the first carpometacarpal joint. There is some calcification noted in the volar soft tissues likely dystrophic without clinical significance of. IMPRESSION: Right humerus: Normal. Right elbow: Generalized soft tissue swelling compatible with edema and/or cellulitis. Right wrist: Generalized soft tissue swelling compatible with edema and/or cellulitis. Severe arthrosis of the first carpometacarpal joint. I do not see air in the soft tissues of. Is
--- NOTE | 2017-01-01 14:04 | Cons- Infect Disease ---
General Information and HPI Consulting Request Date of Consult: 01/01/17 Requested By: ANNEL POLO MD Reason for Consult: Persistent fever on antibiotics for sepsis of urologic origin/rule out cellulitis of the right arm Source of Information: patient History of Present Illness: This is a 71-year-old woman with multiple sclerosis admitted on December 29 after she was found on the floor of her bathroom, unable to get up after 10 hours, following a fall. On admission she was afebrile, with multiple blisters on various parts of her body and with swelling and erythema of the right hand. Laboratory data revealed a white blood count of 26,000, with 80 segs and 14 bands, BUN/creatinine 29 and 0.9, lactic acid 3.8, AST/ALT 133 and 53, CPK 9679, troponin 0.14. Chest x-ray negative. CT of the head, maxillofacial area and cervical spine were negative for any acute process. She was initially followed off antibiotics. She spiked overnight to 101.2 and on December 30 blood cultures 2 were reported positive for gram-negative rods. She was begun on Ceftriaxone, but has remained febrile, up to 102.2 overnight. Her white blood cell count, however, has decreased. She was noted to have increasing erythema and edema of the right forearm and was changed to Cefazolin this morning. Presently she does report discomfort in the right wrist. She has had no urinary symptoms but does report mild back discomfort. Allergies/Medications Allergies: Coded Allergies: NO KNOWN ALLERGIES (02/17/13) Home Med List: Alprazolam 0.5 MG TABLET 1 TAB PO 4XDP PRN ANXIETY (Reported) Anastrozole 1 MG TABLET 1 TAB PO DAILY CANCER (Reported) Ascorbic Acid (Vitamin C) 1,000 MG TABLET 1 TAB PO BID SUPPLEMENT (Reported) Atorvastatin Calcium 40 MG TABLET 1 TAB PO DAILY CHOLESTEROL (Reported) Baclofen 20 MG TABLET 1 TAB PO BID SPASMS (Reported) Baclofen 10 MG TABLET 1 TAB PO DAILY NEEDED PRN SPASMS (Reported) Calcium Carbonate/Vitamin D3 (Calcium + Vitamin D Tablet) 600 MG-200 TABLET 1 TAB PO BID SUPPLEMENT (Reported) Clemastine Fumarate 2.68 MG TABLET 1 TAB PO DAILY NEEDED PRN ALLERGIES ( Reported) Cyanocobalamin (Vitamin B-12) 1,000 MCG TABLET 2 TAB PO DAILY SUPPLEMENT ( Reported) Diclofenac Sodium (Voltaren) 1 % GEL..GRAM. 1 GM TOP 4 TIMES/DAY PRN KNEE PAIN (Reported) apply to affected area(s) Emollient Combination No.10 (Biafine) 45 GM EMULSN.G. 1 EMIR TOP DAILY UNKNOWN (Reported) Gabapentin 100 MG CAPSULE 1 CAP PO TID PRN PAIN (Reported) Glucosamine Sulfate (Unknown Strength) CAPSULE (Unknown Dose) PO DAILY SUPPLEMENT (Reported) Hydrocodone/Acetaminophen (Vicodin 5-300 MG Tablet) 5 MG-300 MG TABLET 1 TAB PO Q4 HRS NEEDED PRN PAIN (Reported) Interferon Beta-1a (Avonex) 30 MCG/0.5 ML SYRINGEKIT 1 INJ QMON UNKNONW ( Reported) Latanoprost (Xalatan) 0.005 % DROPS 1 GTT OPH QPM EYE (Reported) Levothyroxine Sodium (Synthroid) 75 MCG TABLET 1 TAB PO DAILY AC THYROID ( Reported) Paroxetine HCl (Paxil) 20 MG TABLET 1 TAB PO DAILY MENTAL HEALTH (Reported) Prochlorperazine Maleate (Compazine) 10 MG TABLET 1 TAB PO Q4 HRS NEEDED PRN NAUSEA/VOMITING (Reported) Pyridoxine HCl 500 MG TABLET 2 TAB PO DAILY SUPPLEMENT (Reported) Quazepam ([place]) 15 MG TABLET 1 TAB PO QPMP PRN SLEEP (Reported) Timolol Maleate 0.5 % DROPS 1 GTT OPH BID EYE (Reported) Ubidecarenone (Co Q-10) 100 MG CAPSULE 1 CAP PO DAILY SUPPLEMENT (Reported) Past History Travel History Traveled to [place] past 21 day No Medical History Blood Transfusion Hx: Yes Neurological: multiple sclerosis EENT: retinal detachment Cardiovascular: hyperlipidemia Respiratory: NONE Gastrointestinal: NONE Hepatic: NONE Renal: NONE Musculoskeletal: osteoarthritis Psychiatric: NONE Endocrine: NONE Blood Disorders: NONE Cancer(s): L BREAST CANCER INFLAMMATORY CANCER, status post bilateral carpal tunnel release GEOINT ANALYST/Reproductive: NONE History of MRSA: No History of VRE: No History of CDIFF: No Isolation History: Standard Surgical History Surgical History: masectomy (left) Psychosocial History Where Do You Live? Home Services at Home: Nursing Smoking Status: Never Smoked Review of Systems Review of Systems Cardiovascular: Denies: chest pain. Respiratory: Denies: cough, short of breath. GI: Denies: abdominal pain, diarrhea, nausea, vomiting. Genitourinary: Reports: no symptoms. All Other Systems: Reviewed and Negative Exam & Diagnostic Data Last 24 Hrs of Vital Signs/I&O Vital Signs Date Time Temp Pulse Resp B/P Pulse O2 O2 Flow FiO2 Ox Delivery Rate 01/02 800 Nasal Cannula 01/01 600 99.0 01/01 06 99.5 88 20 140/76 95 Room Air 01/01 0500 99.0 01/01 0045 102.2 01/01 0030 102.2 01/01 0000 97 Room Air 12/31 2242 99.6 87 20 148/98 97 Room Air 12/31 1613 99.4 86 20 144/92 95 Room Air 12/31 1608 99.9 Intake & Output 01/01 1600 01/01 0800 03 0000 Intake Total 400 400 200 Output Total 400 100 Balance 0 400 100 Intake, IV 0 100 Intake, Oral 400 400 100 Number 0 Bowel Movements Output, Urine 400 100 Physical Exam Other Physical Findings: She is awake and alert in no acute distress. MAXIMUM TEMPERATURE 102.2. Skin reveals multiple blisters scattered over her skin, over both upper thighs, right breast and right upper extremity, some of which are opened. HEENT exam hematoma over the forehead; lower lip lesion. Neck is supple with no adenopathy. Lungs are clear. Heart regular rhythm with no murmur. Abdomen is soft, nontender with positive bowel sounds. Back mild bilateral CVA tenderness, right greater than left. Extremities no cyanosis, clubbing or edema. Neuro good strength of both lower extremities; right upper extremity exam limited by pain; left upper extremity good strength. Last 24 Hours of Lab Results: Laboratory Tests 01/01 630 Hematology CBC w Diff NO MAN DIFF REQ WBC (4.8 - 10.8 /CUMM) 14.1 H RBC (4.20 - 5.40 /CUMM) 3.70 L Hgb (12.0 - 16.0 G/DL) 10.7 L Hct (37 - 47 %) 32.1 L MCV (81.0 - 99.0 FL) 86.9 MCH (27.0 - 31.0 PG) 28.9 RDW (11.5 - 14.5 %) 13.9 Plt Count (130 - 400 /CUMM) 134 MPV (7.4 - 10.4 FL) 9.2 Gran % (42.2 - 75.2 %) 81.7 H Lymphocytes % (20.5 - 51.1 %) 11.9 L Monocytes % (1.7 - 9.3 %) 6.0 Eosinophils % (0 - 5 %) 0.3 Basophils % (0.0 - 2.0 %) 0.1 Absolute Granulocytes (1.4 - 6.5 /CUMM) 11.5 H Absolute Lymphocytes (1.2 - 3.4 /CUMM) 1.7 Absolute Monocytes (0.10 - 0.60 /CUMM) 0.9 H Absolute Eosinophils (0.0 - 0.7 /CUMM) 0 Absolute Basophils (0.0 - 0.2 /CUMM) 0 PUBS MCHC (33.0 - 37.0 G/DL) 33.3 Last 24 Hours of Waqar Results: Blood cultures 2 December 29 positive for Escherichia coli sensitive to all antibiotics tested and a possible second gram-negative ronda Urine culture December 30 greater than 100,000 colonies of Escherichia coli sensitive to all antibiotics tested Diagnostic Data Recent Imaging Findings: Chest x-ray December [address] of the head, maxillofacial area and cervical spine December 29 negative for any acute process. CT of the abdomen and pelvis with IV contrast December 31 negative for any acute process; mild diverticulosis; interval enlargement of cystic mass in the upper pole of the left kidney X-ray of the right wrist December 31 mild soft tissue swelling with no fracture X-rays of the right wrist, right elbow and right humerus January 01 reveals generalized soft tissue swelling around the right wrist and right elbow Assessment/Plan Assessment/Plan Impression: This is a 71-year-old woman with multiple sclerosis admitted on December 29 after found on the floor at home following a fall, found initially to be afebrile with a leukocytosis, and with multiple blisters over her body with right hand inflammation, found to have positive blood and urine cultures for Escherichia coli and begun on appropriate antibiotics, with persistent fevers and increasing inflammation of the right forearm. It appears that her primary problem is sepsis of urologic origin, which may have led to her fall. The etiology of her blisters and right forearm inflammation is unclear. They are presumably related to her fall and subsequent trauma, though other possibilities, including mutilation by herself or others, must be considered. I am not convinced she has cellulitis of the right forearm, though there may have been some minor break in the skin which could have precipitated this. The blood cultures suggest the possibility of a second gram-negative ronda, which may be another Escherichia coli , and it may be best to continue her on the Ceftriaxone pending final ID of this organism. Suggestion: 1. Local wound care to her multiple blisters 2. Elevation and warm soaks to the right forearm 3. Follow-up final blood cultures 4. Would resume Ceftriaxone 1 g IV every 24 hours pending above Consult Acknowledgment - Thank you for your consult request.
[2017-01-01 15:07] VITALS: BP 160/80
[2017-01-01 23:51] VITALS: BP 136/70
[2017-01-02 06:48] VITALS: BP 110/50
[2017-01-02 08:26] LABS: ABSOLUTE BASOPHIL COUNT 0 /CUMM (0.0-0.2); ABSOLUTE EOSINOPHIL COUNT 0.1 /CUMM (0.0-0.7); ABSOLUTE GRANULOCYTE CT 9.5 /CUMM (1.4-6.5); ABSOLUTE LYMPH COUNT 1.8 /CUMM (1.2-3.4); ABSOLUTE MONOCYTE COUNT 1.1 /CUMM (0.10-0.60); BASOPHIL % 0.2 % (0.0-2.0); EOSINOPHIL % 0.9 % (0-5); GRANULOCYTE % 75.8 % (42.2-75.2); HEMATOCRIT 32.1 % (37-47); MEAN CORPUSCULAR HGB 28.8 PG (27.0-31.0); MEAN CORPUSCULAR HGB CONC 33.3 G/DL (33.0-37.0); MEAN CORPUSCULAR VOLUME 86.4 FL (81.0-99.0); MEAN PLATELET VOLUME 8.5 FL (7.4-10.4); PLATELET COUNT 149 /CUMM (130-400); RBC DISTRIBUTION WIDTH 13.3 % (11.5-14.5); RED BLOOD CELL CT 3.71 /CUMM (4.20-5.40); WHITE BLOOD CELL COUNT 12.6 /CUMM (4.8-10.8)
--- NOTE | 2017-01-02 10:17 | PN- Att Addend ---
Attending Addendum Attending Brief Note Patient seen and examined. Plan of care discussed with the medical team and the patient. Available lab work and radiology test reports were reviewed. Patient was transferred to overnight from telemetry. She denies any coughing phlegm but had recurrent fever fever. Patient reports decreased pain in the right wrist and arm. Vital Signs Date Time Temp Pulse Resp B/P Pulse O2 O2 Flow FiO2 Ox Delivery Rate 01/02 0648 99.1 78 20 110/50 95 Room Air 01/02 0251 100.0 01/02 0152 102.7 01/02 0118 102.7 01/02 0019 102.3 01/01 2351 100.8 79 20 136/70 97 Room Air 01/01 1507 99.1 84 20 160/80 98 Intake & Output 01/02 1600 01/02 0800 01/02 0000 Intake Total 490 250 Output Total 300 150 Balance 190 100 Intake, IV 10 10 Intake, Oral 480 240 Output, Urine 300 150 Exam: General: Patient awake alert oriented without any distress CVS: S1 plus S2 without any murmur or gallops Chest: Few scattered crepitation without any wheeze. There is no respiratory distress. 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 follows command appropriately Extremities: No edema; no clubbing or cyanosis noted; she is unable to lift right hand. Right forearm has a superficial erosion and redness and warmth over the dorsal aspect of forearm which has decreased since yesterday. Laboratory Tests 01/02 0740 Hematology CBC w Diff NO MAN DIFF REQ WBC (4.8 - 10.8 /CUMM) 12.6 H RBC (4.20 - 5.40 /CUMM) 3.71 L Hgb (12.0 - 16.0 G/DL) 10.7 L Hct (37 - 47 %) 32.1 L MCV (81.0 - 99.0 FL) 86.4 MCH (27.0 - 31.0 PG) 28.8 RDW (11.5 - 14.5 %) 13.3 Plt Count (130 - 400 /CUMM) 149 MPV (7.4 - 10.4 FL) 8.5 Gran % (42.2 - 75.2 %) 75.8 H Lymphocytes % (20.5 - 51.1 %) 14.5 L Monocytes % (1.7 - 9.3 %) 8.6 Eosinophils % (0 - 5 %) 0.9 Basophils % (0.0 - 2.0 %) 0.2 Absolute Granulocytes (1.4 - 6.5 /CUMM) 9.5 H Absolute Lymphocytes (1.2 - 3.4 /CUMM) 1.8 Absolute Monocytes (0.10 - 0.60 /CUMM) 1.1 H Absolute Eosinophils (0.0 - 0.7 /CUMM) 0.1 Absolute Basophils (0.0 - 0.2 /CUMM) 0 PUBS MCHC (33.0 - 37.0 G/DL) 33.3 Right arm and wrist x-rays Right humerus: Normal. Right elbow: Generalized soft tissue swelling compatible with edema and/or cellulitis. Right wrist: Generalized soft tissue swelling compatible with edema and/or cellulitis. Severe arthrosis of the first carpometacarpal joint. Assessment * Sepsis of urological her vision * Recurrent fever likely due to cellulitis of right forearm; other possibilities include a second gram-negative ronda being Pseudomonas which is not being covered by current antibiotics.? Drug fever * Rhabdomyolysis * History of MS * Elevated troponin likely demand ischemia Plan * Continue IV antibiotics; await further ID input * Elevate right forearm * Obtain blood cultures if patient spikes temperature again * Encourage oral fluids
--- NOTE | 2017-01-02 14:48 | PN- Housestaff ---
Subjective Follow-up For: Urosepsis ? Cellulitis of the right arm Rhabdomyolysis History of MS Complaints: RIGHT ARM SWELLING Subjective: The right hand continues to be swollen however it's better than yesterday. X- rays were negative for necrotizing fasciitis. Patient spiked a fever of 102.7 this a.m. denies any urinary symptoms. Received her interferon injection this morning. Review of Systems Constitutional: Reports: fever, malaise, weakness. EENTM: Reports: no symptoms. Cardiovascular: Reports: no symptoms. Respiratory: Reports: no symptoms. Gastrointestinal: Reports: no symptoms. Genitourinary: Reports: no symptoms. Musculoskeletal: Reports: joint pain, joint swelling (RIGHT WRIST SWELLING), muscle pain. Skin: Reports: change in skin color. Neurological/Psychological: Reports: no symptoms. Objective Last 24 Hrs of Vital Signs/I&O Vital Signs Date Time Temp Pulse Resp B/P Pulse O2 O2 Flow FiO2 Ox Delivery Rate 01/03 800 Room Air 01/02 0648 99.1 78 20 110/50 95 Room Air 01/02 0251 100.0 01/02 0152 102.7 01/02 0118 102.7 01/02 0019 102.3 01/01 2351 100.8 79 20 136/70 97 Room Air 01/01 1507 99.1 84 20 160/80 98 Intake & Output 01/02 1600 01/02 0800 01/02 0000 Intake Total 500 490 250 Output Total 575 300 150 Balance -75 190 100 Intake, IV 10 10 Intake, Oral 500 480 240 Number 1 Bowel Movements Output, Urine 575 300 150 Physical Exam General Appearance: Alert, Oriented X3, Cooperative, No Acute Distress Skin: RIGHT FOREARM WARM AND TENDER.IMPROVED FROM YESTERDAY. rESTRICTION OF MOTION IN THE RIGHT WRIST. sKIN BREAK OVER THE RIGHT UPPER ARM. mASTECTOMY SCAR OVER HER LEFT CHEST. mULTIPLE BLISTERS OVER THE HANDS AND THE LEGS. HEENT: Atraumatic, PERRLA, EOMI Neck: Supple, No JVD Lymphatic: Cervical nl Cardiovascular: Regular Rate, Normal S1, Normal S2, No Murmurs Lungs: Clear to Auscultation, Normal Air Movement Abdomen: Normal Bowel Sounds, Soft, No Tenderness Neurological: Normal Speech, Normal Tone, Sensation Intact, DIMINISHED POWER IN ALL 4 EXTREMITIES. DIMINISHED SENSATION ON THE LEFT LEG Extremities: No Clubbing, No Cyanosis, No Edema, Normal Pulses Current Medications: Current Medications Sig/Francy Start time Last Medication Dose Route Stop Time Status Admin Acetaminophen 325 MG Q6-PRN PRN 12/29 1530 AC 01/02 PO 0019 Alprazolam 0.5 MG Q6-PRN PRN 12/30 1415 AC 01/02 PO 01/06 1414 1133 Anastrozole 1 MG DAILY 12/29 1533 AC 01/02 PO 1119 Baclofen 10 MG DAILY NEEDED PRN 12/29 1545 AC PO Bisacodyl 10 MG ONCE ONE 01/02 1430 DC [place] 01/02 1431 Cefazolin Sodium 2 GM IQ8 01/01 1600 DC N/A 1 UNIT IV Ceftriaxone Sodium 1,000 MG DAILY 01/02 1000 AC 01/02 IV 1117 Ceftriaxone Sodium 1,000 MG ONCE ONE 01/01 1700 DC 01/01 IV 01/01 1701 1704 Enoxaparin Sodium 40 MG DAILY 12/29 1518 AC 01/02 SC 1117 Gabapentin 100 MG TID PRN 12/29 1545 AC 12/30 PO 1828 Ibuprofen 600 MG ONCE ONE 01/02 0145 DC 01/02 PO 01/02 0146 0152 Ibuprofen 800 MG .STK-MED ONE 01/02 0138 DC PO 01/02 0139 Interferon Beta 1a 30 MCG ONCE ONE 01/02 1030 DC 01/02 IM 01/02 1031 1119 Interferon Beta 1a 30 MCG ONCE ONE 01/02 0915 CAN IM 01/02 1400 Levothyroxine Sodium 0.05 MG DAILY AC 12/30 0700 AC 01/02 PO 0634 Mirabegron 50 MG DAILY 12/29 1600 AC 01/02 PO 1118 Paroxetine HCl 20 MG DAILY 12/30 1000 AC 01/02 PO 1117 Potassium Chloride 40 MEQ ONCE ONE 01/02 1415 DC PO 01/02 1416 Potassium Chloride 40 MEQ ONCE ONE 01/01 1715 DC 01/01 PO 01/01 1716 1726 Timolol Maleate 1 GTT BID 12/29 1538 AC 01/02 OPH 1117 Tramadol HCl 50 MG Q8 PRN 01/02 1115 AC 01/02 PO 1129 Tramadol HCl 25 MG ONCE ONE 01/01 2200 DC 01/01 PO 01/01 2201 2218 Last 24 Hrs of Lab/Waqar Results Last 24 Hrs of Labs/Mics: Laboratory Tests 01/02/17 0740: CBC w Diff NO MAN DIFF REQ, RBC 3.71 L, MCV 86.4, MCH 28.8, RDW 13.3, MPV 8.5, Gran % 75.8 H, Lymphocytes % 14.5 L, Monocytes % 8.6, Eosinophils % 0.9, Basophils % 0.2, Absolute Granulocytes 9.5 H, Absolute Lymphocytes 1.8, Absolute Monocytes 1.1 H, Absolute Eosinophils 0.1, Absolute Basophils 0, PUBS MCHC 33.3 Assessment/Plan Assessment: Patient is a 71-year-old female with past medical history of left breast cancer status post mastectomy currently on an anastrozole, MS, osteoarthritis, hyperlipidemia, status post left knee replacement who was brought into the ED by her son for the evaluation of a fall and weakness apparently mechanical. Plan 1.Sepsis of urological origin : Spiked a fever of 102.7 OVERNIGHT -White count down this am compared to yesterday -CT abdomen and pelvis showed no abscess or mass. -IV fluids stopped. Patent patient tolerating diet. -Continue IV ceftriaxone , day 4 of antibiotics -Blood and urine cultures positive Escherichia coli . Will follow up final blood cultures. -No urological complaints.Patient has a neurogenic bladder and is on merbetriq.. -IV Tylenol for fever -ID following 2. Right arm cellulitis -No gas noted in the soft tissue on x-ray. -Elevation and warm soaks to the right forearm -Ortho was consulted who placed IV in the right hand is infiltrated. IV is being changed. 3. Unwitnessed fall/rhabdomyolysis -CPK levels trending down with aggressive hydration with normal saline IV at 100 mL per hour -Holding statin for muscle injury -X-ray right wrist to rule out fracture negative for fracture -Physical therapy evaluation for regaining strength -Ortho consult awaited. -Patient needs a new walker, reports a previous walker was not functioning properly. - Plan for Safe discharge/STR placement 4. Elevated troponins: Likely demand ischemia -Troponins trended down -ACS ruled out with negative troponins and EKG -Echocardiogram shows EF of more than 60%, no wall motion abnormalities, stage I diastolic dysfunction. 5. History of MS -No neurological deficits -Continue baclofen and gabapentin as needed for muscle spasm and neuropathic pain -Continue merbetriq for neurogenic bladder -Dr. Ga in [place] is patient's MS doctor. 6. Multiple blisters opened/fluid-filled over the body? [place] -Patient reports the blisters are secondary to overheating in her apartment. -Local wound care to multiple blisters -Social work consult given unclear etiology of the blisters. Evaluation of home situation required. 7. History of left breast cancer status post mastectomy and radiation/currently on hormonal therapy -Continue anastrozole -Courtsey call to Dr Patterson patient's radiation oncologist Heart healthy diet Full code Mild pain pathway Problem List: 1. Fall 2. Rhabdomyolysis 3. UTI (urinary tract infection) 4. Cellulitis Pain Ratin Pain Location: arm Pain Goal: Remain pain free Pain Plan: Gabapentin, baclofen, tylenol Tomorrow's Labs & Rationales: cbc infection bep hypokalemia
--- NOTE | 2017-01-02 15:04 | PN- Infect Dx ---
Subjective Subjective: MAXIMUM TEMPERATURE 102.7. She notes improvement in her right hand/wrist pain and swelling and offers no new complaints. Objective Last 24 Hrs of Vital Signs/I&O Vital Signs Date Time Temp Pulse Resp B/P Pulse O2 O2 Flow FiO2 Ox Delivery Rate 01/03 800 Room Air 01/02 0648 99.1 78 20 110/50 95 Room Air 01/02 0251 100.0 01/02 0152 102.7 01/02 0118 102.7 01/02 0019 102.3 01/01 2351 100.8 79 20 136/70 97 Room Air 01/01 1507 99.1 84 20 160/80 98 Intake & Output 01/02 1600 01/02 0800 01/02 0000 Intake Total 500 490 250 Output Total 575 300 150 Balance -75 190 100 Intake, IV 10 10 Intake, Oral 500 480 240 Number 1 Bowel Movements Output, Urine 575 300 150 Physical Exam Other Physical Findings: She appears comfortable in no acute distress Skin blisters/open wounds unchanged Lungs bibasilar crackles Heart regular rhythm with no murmur Extremities swelling and mild tenderness over the right olecranon bursa, with limited range of motion of the right elbow, possibly secondary to pain; decreased swelling of the right hand and forearm, with decreased erythema and with normal range of motion of the right wrist Results Last 24 Hours of Lab Results: Laboratory Tests 01/02 0740 Hematology CBC w Diff NO MAN DIFF REQ WBC (4.8 - 10.8 /CUMM) 12.6 H RBC (4.20 - 5.40 /CUMM) 3.71 L Hgb (12.0 - 16.0 G/DL) 10.7 L Hct (37 - 47 %) 32.1 L MCV (81.0 - 99.0 FL) 86.4 MCH (27.0 - 31.0 PG) 28.8 RDW (11.5 - 14.5 %) 13.3 Plt Count (130 - 400 /CUMM) 149 MPV (7.4 - 10.4 FL) 8.5 Gran % (42.2 - 75.2 %) 75.8 H Lymphocytes % (20.5 - 51.1 %) 14.5 L Monocytes % (1.7 - 9.3 %) 8.6 Eosinophils % (0 - 5 %) 0.9 Basophils % (0.0 - 2.0 %) 0.2 Absolute Granulocytes (1.4 - 6.5 /CUMM) 9.5 H Absolute Lymphocytes (1.2 - 3.4 /CUMM) 1.8 Absolute Monocytes (0.10 - 0.60 /CUMM) 1.1 H Absolute Eosinophils (0.0 - 0.7 /CUMM) 0.1 Absolute Basophils (0.0 - 0.2 /CUMM) 0 PUBS MCHC (33.0 - 37.0 G/DL) 33.3 Last 24 Hours of Waqar Results: Blood cultures December 29 positive for Escherichia coli and a second gram- negative ronda, ID pending Assessment/Plan Impression: Recurrent fevers despite treatment with Ceftriaxone now Day 4 of treatment for Escherichia coli sepsis of urologic origin, with a second gram-negative ronda isolated from the blood, to be identified. Her white blood cell count has decreased mildly. Her fevers may be secondary to the inflammation over the right olecranon bursa, raising concern for a bursitis, possibly septic, related to trauma from her recent fall. Suggestion: 1. Warm compresses and elevation to her right olecranon bursa 2. Orthopedic evaluation for aspiration of the bursa 3. Repeat blood cultures 2 if re-spikes 4. Follow-up final blood cultures 5. Continue Ceftriaxone pending above
[2017-01-02 15:31] VITALS: BP 110/70
[2017-01-02 21:57] VITALS: BP 112/60
[2017-01-03 07:29] VITALS: BP 140/80
[2017-01-03 08:12] LABS: ABSOLUTE BASOPHIL COUNT 0 /CUMM (0.0-0.2); ABSOLUTE EOSINOPHIL COUNT 0.1 /CUMM (0.0-0.7); ABSOLUTE LYMPH COUNT 1.3 /CUMM (1.2-3.4); ABSOLUTE MONOCYTE COUNT 0.7 /CUMM (0.10-0.60); BASOPHIL % 0.1 % (0.0-2.0); EOSINOPHIL % 1.1 % (0-5); GRANULOCYTE % 76.3 % (42.2-75.2); HEMATOCRIT 32.2 % (37-47); MEAN CORPUSCULAR HGB 28.3 PG (27.0-31.0); MEAN CORPUSCULAR HGB CONC 32.6 G/DL (33.0-37.0); MEAN CORPUSCULAR VOLUME 86.7 FL (81.0-99.0); MEAN PLATELET VOLUME 8.9 FL (7.4-10.4); PLATELET COUNT 153 /CUMM (130-400); RBC DISTRIBUTION WIDTH 13.6 % (11.5-14.5); RED BLOOD CELL CT 3.72 /CUMM (4.20-5.40)
--- NOTE | 2017-01-03 08:20 | PN- Housestaff ---
Subjective Follow-up For: Urosepsis Bursitis of the right olecranon BURSA Rhabdomyolysis History of MS Complaints: no complaints Subjective: Patient has been spiking fevers MAXIMUM TEMPERATURE of 103 throughout the night. Denies any complaints. She does complain of pain over the right elbow and limited motion. Dressing over the bursa. Improved swelling of the right forearm and the wrist. Review of Systems Constitutional: Reports: malaise, weakness. EENTM: Reports: no symptoms. Cardiovascular: Reports: no symptoms. Respiratory: Reports: no symptoms. Gastrointestinal: Reports: no symptoms. Genitourinary: Reports: no symptoms. Musculoskeletal: Reports: joint swelling, muscle pain, muscle stiffness. Skin: Reports: change in skin color, lesions. Objective Last 24 Hrs of Vital Signs/I&O Vital Signs Date Time Temp Pulse Resp B/P Pulse O2 O2 Flow FiO2 Ox Delivery Rate 01/03 0730 102.6 01/03 0729 101.5 91 20 140/80 98 Room Air 01/03 0656 103.0 01/03 0656 103.0 01/03 0610 101.5 01/03 0222 99.6 01/02 2235 99.2 01/02 2157 101.8 105 20 112/60 95 Room Air 01/02 2138 101.8 01/02 2043 100.4 01/02 2030 100.4 01/02 1531 98.2 88 20 110/70 96 Intake & Output 01/03 1600 01/03 0800 01/03 0000 Intake Total 120 450 Output Total 100 353 Balance 20 97 Intake, Oral 120 450 Output, Stool 3 Output, Urine 100 350 Physical Exam General Appearance: Alert, Oriented X3, Cooperative, No Acute Distress Skin: tenderness and swelling over the right elbow area. Dressings intact. Redness and swelling of the forearm and wrist improved.mastectomy scar over the left chest. Multiple blisters openand fluid-filled over the arms and legs HEENT: Atraumatic, PERRLA, EOMI Neck: Supple, No JVD Lymphatic: Cervical nl Cardiovascular: Regular Rate, Normal S1, Normal S2, No Murmurs Lungs: Clear to Auscultation, Normal Air Movement Abdomen: Normal Bowel Sounds, Soft, No Tenderness Neurological: diminished power in the legs and right arm. decreased sensation over the left leg upto the knee. Extremities: No Clubbing, No Cyanosis, No Edema Vascular: Normal Pulses Assessment/Plan Assessment: Patient is a 71-year-old female with past medical history of left breast cancer status post mastectomy currently on an anastrozole, MS, osteoarthritis, hyperlipidemia, status post left knee replacement who was brought into the ED by her son for the evaluation of a fall and weakness apparently mechanical. Plan 1.Sepsis of urological origin Vs Rt olecranon bursitis : Spiking fevers overnight with MAXIMUM TEMPERATURE of 103 -White count down pending -Right elbow swelling and possible fluctuation -Has been spiking fevers on antibiotics overnight, blood cultures X 2sent -CT abdomen and pelvis showed no abscess or mass. -IV fluids stopped. Patent patient tolerating diet. -Continue IV ceftriaxone , day 5 of antibiotics -Blood and urine cultures positive Escherichia coli . Possibility of a second gram-negative bug. -No urological complaints.Patient has a neurogenic bladder and is on merbetriq.. -IV Tylenol for fever -ID following 2. Right arm questionable bursitis -No gas noted in the soft tissue on x-ray. -Elevation and warm soaks to the right forearm -Ortho input appreciated, patient might need to be tapped. 3. Unwitnessed fall/rhabdomyolysis -CPK levels trending down with aggressive hydration with normal saline IV at 100 mL per hour -Holding statin for muscle injury -X-ray right wrist to rule out fracture negative for fracture -Physical therapy evaluation for regaining strength -Ortho consult awaited. -Patient needs a new walker, reports a previous walker was not functioning properly. - Plan for Safe discharge/STR placement 4. Elevated troponins: Likely demand ischemia -Troponins trended down -ACS ruled out with negative troponins and EKG -Echocardiogram shows EF of more than 60%, no wall motion abnormalities, stage I diastolic dysfunction. 5. History of MS -No neurological deficits -Continue baclofen and gabapentin as needed for muscle spasm and neuropathic pain -Continue merbetriq for neurogenic bladder -Dr. aG in [place] is patient's MS doctor. 6. Multiple blisters opened/fluid-filled over the body? [place] -Patient reports the blisters are secondary to overheating in her apartment. -Local wound care to multiple blisters -Social work consult given unclear etiology of the blisters. Evaluation of home situation required. 7. History of left breast cancer status post mastectomy and radiation/currently on hormonal therapy -Continue anastrozole -Courtsey call to Dr Patterson patient's radiation oncologist Heart healthy diet Full code Mild pain pathway Problem List: 1. Rhabdomyolysis 2. Fall 3. UTI (urinary tract infection) Pain Ratin Pain Location: right arm Pain Goal: Remain pain free Pain Plan: Gabapentin, baclofen, tylenol, ultram Tomorrow's Labs & Rationales: cbc infection bep hypokalemia
[2017-01-03 09:04] LABS: WHITE BLOOD CELL COUNT 9.1 /CUMM (4.8-10.8)
--- NOTE | 2017-01-03 10:48 | Cons- Orthopedic ---
General Information and HPI Consulting Request Date of Consult: 01/03/17 Requested By: CHRIST HDZ,ANNEL Hmam History of Present Illness: 71 yr old female admitted for high wbc/fever and elevated troponins. c/o right forearm and elbow pain. patient has history of MS and had recent fall with walker. x-rays of right wrist,forearm and humerus were taken. states she still has pain in right forearm. denies numbness into hand. states has weakness of hand and elbow. she was found to have urosepsis and treated with IV antibiotics. con't to have fever. Allergies/Medications Allergies: Coded Allergies: NO KNOWN ALLERGIES (02/17/13) Home Med List: Alprazolam 0.5 MG TABLET 1 TAB PO 4XDP PRN ANXIETY (Reported) Anastrozole 1 MG TABLET 1 TAB PO DAILY CANCER (Reported) Ascorbic Acid (Vitamin C) 1,000 MG TABLET 1 TAB PO BID SUPPLEMENT (Reported) Atorvastatin Calcium 40 MG TABLET 1 TAB PO DAILY CHOLESTEROL (Reported) Baclofen 20 MG TABLET 1 TAB PO BID SPASMS (Reported) Baclofen 10 MG TABLET 1 TAB PO DAILY NEEDED PRN SPASMS (Reported) Calcium Carbonate/Vitamin D3 (Calcium + Vitamin D Tablet) 600 MG-200 TABLET 1 TAB PO BID SUPPLEMENT (Reported) Clemastine Fumarate 2.68 MG TABLET 1 TAB PO DAILY NEEDED PRN ALLERGIES ( Reported) Cyanocobalamin (Vitamin B-12) 1,000 MCG TABLET 2 TAB PO DAILY SUPPLEMENT ( Reported) Diclofenac Sodium (Voltaren) 1 % GEL..GRAM. 1 GM TOP 4 TIMES/DAY PRN KNEE PAIN (Reported) apply to affected area(s) Emollient Combination No.10 (Biafine) 45 GM EMULSN.G. 1 EMIR TOP DAILY UNKNOWN (Reported) Gabapentin 100 MG CAPSULE 1 CAP PO TID PRN PAIN (Reported) Glucosamine Sulfate (Unknown Strength) CAPSULE (Unknown Dose) PO DAILY SUPPLEMENT (Reported) Hydrocodone/Acetaminophen (Vicodin 5-300 MG Tablet) 5 MG-300 MG TABLET 1 TAB PO Q4 HRS NEEDED PRN PAIN (Reported) Interferon Beta-1a (Avonex) 30 MCG/0.5 ML SYRINGEKIT 1 INJ QMON UNKNONW ( Reported) Latanoprost (Xalatan) 0.005 % DROPS 1 GTT OPH QPM EYE (Reported) Levothyroxine Sodium (Synthroid) 75 MCG TABLET 1 TAB PO DAILY AC THYROID ( Reported) Paroxetine HCl (Paxil) 20 MG TABLET 1 TAB PO DAILY MENTAL HEALTH (Reported) Prochlorperazine Maleate (Compazine) 10 MG TABLET 1 TAB PO Q4 HRS NEEDED PRN NAUSEA/VOMITING (Reported) Pyridoxine HCl 500 MG TABLET 2 TAB PO DAILY SUPPLEMENT (Reported) Quazepam ([place]) 15 MG TABLET 1 TAB PO QPMP PRN SLEEP (Reported) Timolol Maleate 0.5 % DROPS 1 GTT OPH BID EYE (Reported) Ubidecarenone (Co Q-10) 100 MG CAPSULE 1 CAP PO DAILY SUPPLEMENT (Reported) Past History Medical History Blood Transfusion Hx: Yes Neurological: multiple sclerosis EENT: retinal detachment Cardiovascular: hyperlipidemia Respiratory: NONE Gastrointestinal: NONE Hepatic: NONE Renal: NONE Musculoskeletal: osteoarthritis Psychiatric: NONE Endocrine: NONE Blood Disorders: NONE Cancer(s): L BREAST CANCER INFLAMMATORY CANCER status post bilateral carpal tunnel release FINISH OPENER/Reproductive: NONE Surgical History Pertinent Surgical History: masectomy (left) Psychosocial History Where Do You Live? Home Services at Home: Nursing Smoking Status: Never Smoked Review of Systems Review of Systems: see chart Exam & Diagnostic Data Vital Signs and I&O Vital Signs Date Time Temp Pulse Resp B/P Pulse O2 O2 Flow FiO2 Ox Delivery Rate 01/03 0730 102.6 01/03 0729 101.5 91 20 140/80 98 Room Air 01/03 0656 103.0 01/03 0656 103.0 01/03 0610 101.5 01/03 0222 99.6 01/02 2235 99.2 01/02 2157 101.8 105 20 112/60 95 Room Air 01/02 2138 101.8 01/02 2043 100.4 01/02 2030 100.4 01/02 1531 98.2 88 20 110/70 96 Intake & Output 01/03 1600 01/03 0800 01/03 0000 01/02 1600 01/02 0800 01/02 0000 Intake Total 669 953 7131 490 250 Output Total 100 353 575 300 150 Balance 20 97 905 190 100 Intake, IV 10 10 Intake, Oral 244 467 0849 480 240 Number 2 Bowel Movements Output, Stool 3 Output, Urine 100 350 575 300 150 Physical Exam: she has multiple skin tears of right forearm and one on left shoulder as well. there is no drainage or pus from these sites. there is some swelling of right forearm region. there is no swelling over olecrenon bursa. no fluctuence over right olecrenon bursa or forearm. she is non-tender over olecrenon bursa. passively i can flex right elbow to 100 degrees. actively she cannot flex right elbow. she has full extension of right elbow. the compartments over right forearm feel soft however are tender. right radial pulse is +2. active extension of right wrist is present but weak. she is non-tender over wrist. x-rays of right humerus, elbow, forearm and hand are normal. no signs of effusion of right elbow. she originally had elevated wbc but has normalized with IV abx. she currently is still having fevers. has elevated cpk and troponin that was trending downward. Assessment/Plan Assessment/Plan right forearm contusion/swelling with abrasions s/p trauma - consider mri of right forearm r/o muscle belly injury - consider ultrasound right forearm r/o dvt - the elbow joint does not show any signs of sepsis. the olecrenon bursa region does not show any signs of infection as well. - con't with daily dressing changes to right forearm abrasions. Consult Acknowledgment - Thank you for your consult request.
--- NOTE | 2017-01-03 11:09 | PN- Infect Dx ---
Subjective Subjective: MAXIMUM TEMPERATURE 103. She complains of right arm pain. She has no urinary complaints. Objective Last 24 Hrs of Vital Signs/I&O Vital Signs Date Time Temp Pulse Resp B/P Pulse O2 O2 Flow FiO2 Ox Delivery Rate 01/03 0730 102.6 01/03 0729 101.5 91 20 140/80 98 Room Air 01/03 0656 103.0 01/03 0656 103.0 01/03 0610 101.5 01/03 0222 99.6 01/02 2235 99.2 01/02 2157 101.8 105 20 112/60 95 Room Air 01/02 2138 101.8 01/02 2043 100.4 01/02 2030 100.4 01/02 1531 98.2 88 20 110/70 96 Intake & Output 01/03 1600 01/03 0800 01/03 0000 Intake Total 120 450 Output Total 100 353 Balance 20 97 Intake, Oral 120 450 Output, Stool 3 Output, Urine 100 350 Physical Exam Other Physical Findings: She appears comfortable in no acute distress Skin multiple skin tears Lungs bibasilar crackles Heart regular rhythm with no murmur Abdomen soft, nontender with positive bowel sounds Back right CVA tenderness Extremities right forearm swelling, with edema and tenderness over the right elbow, with minimal erythema; decreased range of motion of the right elbow Results Last 24 Hours of Lab Results: Laboratory Tests 01/03 0645 Chemistry Sodium (137 - 145 mmol/L) 136 L Potassium (3.5 - 5.1 mmol/L) 4.4 Chloride (98 - 107 mmol/L) 101 Carbon Dioxide (22 - 30 mmol/L) 27 Anion Gap (5 - 16) 8 BUN (7 - 17 mg/dL) 15 Creatinine (0.5 - 1.0 mg/dL) 0.7 Estimated GFR (>60 ml/min) > 60 BUN/Creatinine Ratio (7 - 25 %) 21.4 Hematology CBC w Diff NO MAN DIFF REQ WBC (4.8 - 10.8 /CUMM) 9.1 RBC (4.20 - 5.40 /CUMM) 3.72 L Hgb (12.0 - 16.0 G/DL) 10.5 L Hct (37 - 47 %) 32.2 L MCV (81.0 - 99.0 FL) 86.7 MCH (27.0 - 31.0 PG) 28.3 RDW (11.5 - 14.5 %) 13.6 Plt Count (130 - 400 /CUMM) 153 MPV (7.4 - 10.4 FL) 8.9 Gran % (42.2 - 75.2 %) 76.3 H Lymphocytes % (20.5 - 51.1 %) 14.5 L Monocytes % (1.7 - 9.3 %) 8.0 Eosinophils % (0 - 5 %) 1.1 Basophils % (0.0 - 2.0 %) 0.1 Absolute Granulocytes (1.4 - 6.5 /CUMM) 7.0 H Absolute Lymphocytes (1.2 - 3.4 /CUMM) 1.3 Absolute Monocytes (0.10 - 0.60 /CUMM) 0.7 H Absolute Eosinophils (0.0 - 0.7 /CUMM) 0.1 Absolute Basophils (0.0 - 0.2 /CUMM) 0 PUBS MCHC (33.0 - 37.0 G/DL) 32.6 L Last 24 Hours of Waqar Results: Blood cultures 2 December 29 positive for Escherichia coli sensitive to all antibiotics tested, with the second gram-negative ronda identified as the same Escherichia coli Blood cultures January 03 pending Assessment/Plan Impression: Recurrent fevers though white blood cell count now normal on Ceftriaxone Day 5 of treatment for Escherichia coli sepsis of urologic origin, with the second gram-negative ronda identified as the same Escherichia coli. She has a significant amount of inflammation in the right forearm and overlying the right olecranon bursa, raising concern for bursitis or arthritis, though she was evaluated by Orthopedics, who does not suspect either of these processes. The possibility of a DVT, as suggested by Orthopedics, could be considered. Suggestion: 1. Doppler right upper extremity 2. Would pursue MRI of the right upper extremity 3. Warm compresses and elevation of her right forearm 4. Discontinue Ceftriaxone 5. Begin Cefazolin 2 g IV every 8 hours
--- NOTE | 2017-01-03 11:32 | PN- Att Addend ---
Attending Addendum Attending Brief Note Patient seen and examined. Plan of care discussed with the medical team and the patient. Available lab work and radiology test reports were reviewed. She denies any coughing phlegm but had recurrent fever fever. Patient reports severe pain in the right elbow. When right arm is passively moved she experiences severe pain. Vital Signs Date Time Temp Pulse Resp B/P Pulse O2 O2 Flow FiO2 Ox Delivery Rate 01/03 1030 100.2 01/03 0730 102.6 01/03 0729 101.5 91 20 140/80 98 Room Air 01/03 0656 103.0 01/03 0656 103.0 01/03 0610 101.5 01/03 0222 99.6 01/02 2235 99.2 01/02 2157 101.8 105 20 112/60 95 Room Air 01/02 2138 101.8 01/02 2043 100.4 01/02 2030 100.4 01/02 1531 98.2 88 20 110/70 96 Intake & Output 01/03 1600 01/03 0800 01/03 0000 Intake Total 120 450 Output Total 100 353 Balance 20 97 Intake, Oral 120 450 Output, Stool 3 Output, Urine 100 350 Exam: General: Patient awake alert oriented without any distress CVS: S1 plus S2 without any murmur or gallops Chest: Few scattered crepitation without any wheeze. There is no respiratory distress. 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 follows command appropriately Extremities: No edema; no clubbing or cyanosis noted; she is unable to lift right hand. Right elbow is swollen integrated and tender with severe pain on passive motions. Right Forearm has a superficial erosion and redness and warmth over the dorsal aspect of forearm which has decreased since yesterday. Laboratory Tests 01/03 0645 Chemistry Sodium (137 - 145 mmol/L) 136 L Potassium (3.5 - 5.1 mmol/L) 4.4 Chloride (98 - 107 mmol/L) 101 Carbon Dioxide (22 - 30 mmol/L) 27 Anion Gap (5 - 16) 8 BUN (7 - 17 mg/dL) 15 Creatinine (0.5 - 1.0 mg/dL) 0.7 Estimated GFR (>60 ml/min) > 60 BUN/Creatinine Ratio (7 - 25 %) 21.4 Hematology CBC w Diff NO MAN DIFF REQ WBC (4.8 - 10.8 /CUMM) 9.1 RBC (4.20 - 5.40 /CUMM) 3.72 L Hgb (12.0 - 16.0 G/DL) 10.5 L Hct (37 - 47 %) 32.2 L MCV (81.0 - 99.0 FL) 86.7 MCH (27.0 - 31.0 PG) 28.3 RDW (11.5 - 14.5 %) 13.6 Plt Count (130 - 400 /CUMM) 153 MPV (7.4 - 10.4 FL) 8.9 Gran % (42.2 - 75.2 %) 76.3 H Lymphocytes % (20.5 - 51.1 %) 14.5 L Monocytes % (1.7 - 9.3 %) 8.0 Eosinophils % (0 - 5 %) 1.1 Basophils % (0.0 - 2.0 %) 0.1 Absolute Granulocytes (1.4 - 6.5 /CUMM) 7.0 H Absolute Lymphocytes (1.2 - 3.4 /CUMM) 1.3 Absolute Monocytes (0.10 - 0.60 /CUMM) 0.7 H Absolute Eosinophils (0.0 - 0.7 /CUMM) 0.1 Absolute Basophils (0.0 - 0.2 /CUMM) 0 PUBS MCHC (33.0 - 37.0 G/DL) 32.6 L Microbiology Date/Time Procedure - Status Source Growth 01/03 0700 Blood Culture - RECD BLOOD 01/03 0645 Blood Culture - RECD BLOOD 01/03 2328 Blood Culture - CAN BLOOD Cancelled: Cancelled via OE: Duplicate Order 01/03 2328 Blood Culture - CAN BLOOD Cancelled: Cancelled via OE: Duplicate Order Assessment * Sepsis of urological origin * Recurrent fever likely due to cellulitis of right forearm. Need to rule out BURSITIS AND ELBOW JOINT SEPTIC ARTHRITIS. ? Drug fever; patient was well tolerated by orthopedic. * Rhabdomyolysis * History of MS * Elevated troponin likely demand ischemia Plan * Continue IV antibiotics; await further ID input * Elevate right forearm * Warm compresses to right elbow radial * Update ultrasound to rule out BURSITIS; patient may need right elbow MRI to rule out septic arthritis * Case was discussed with infectious disease.
--- NOTE | 2017-01-03 11:47 | ULTRASOUND REPORT ---
EXAMINATION: US DUPLEX UPPER EXTREMITY VEINS, RIGHT CLINICAL INFORMATION: Pain and edema. COMPARISON: None. TECHNIQUE: Doppler spectral analysis and color mapping was performed of the right upper extremity. Compression and augmentation maneuvers were performed where feasible. FINDINGS: The right brachial, basilic, and cephalic veins from the antecubital region to the shoulder were visualized and compressible. The axillary and subclavian veins were visualized and compressible where feasible. The lower aspect of the jugular vein was visualized and compressible. The central portion of the brachiocephalic vein were examined. There is color saturation of the venous system of the upper extremity. IMPRESSION: No evidence for right upper extremity vein thrombosis.
[2017-01-03 14:26] VITALS: BP 140/80
--- NOTE | 2017-01-03 17:46 | MRI REPORT ---
EXAMINATION: MR ELBOW WITHOUT AND WITH CONTRAST, RIGHT CLINICAL INFORMATION: Right elbow redness and swelling. COMPARISON: Radiographs 01/01/2017. TECHNIQUE: MRI without and with intravenous administration of 17 mL of Magnevist is performed on the right elbow. FINDINGS: There is extensive soft tissue edema surrounding the right elbow which is most prominent posteriorly. Extensive subcutaneous enhancement is also present concerning for infection. Ill-defined peripheral enhancing fluid posterior to the distal triceps and olecranon may represent phlegmonous change, with enhancement deep to the tendon involving the triceps muscle. There is edema and enhancement of the anconeus muscle, the distal-most aspect of which demonstrates peripheral enhancement only, as does the humeral head of the extensor carpi ulnaris muscle. Prominent enhancement with central focus without enhancement of the underlying abductor pollicis longus muscle and the adjacent extensor digiti minimi muscle is also noted, extending distally beyond the imaged field of view. This lack of central enhancement of the muscles may indicate early or developing myonecrosis. There is a small elbow joint effusion. Bone marrow signal appears normal. No evidence of osteomyelitis. Tendon insertions and origins appear intact. IMPRESSION: Extensive soft tissue and subcutaneous edema and enhancement with fluid signal posterior to the triceps and olecranon suggesting phlegmonous change and developing abscess. A more discrete peripherally enhancing subcutaneous fluid collection measuring 2.2 x 0.8 x 1.5 cm was present superficial to the extensor carpi ulnaris muscle likely representing an abscess. Edema and enhancement of the underlying triceps muscle and some of the muscles of the extensor compartment concerning for infection/myositis. In addition, portions of the anconeus, extensor carpi ulnaris, abductor pollicis longus, and extensor digiti minimi muscles demonstrate muscle edema with peripheral enhancement only, concerning for early/developing myonecrosis. No evidence of osteomyelitis.
[2017-01-03 22:48] VITALS: BP 136/78
[2017-01-04 06:54] VITALS: BP 136/70
[2017-01-04 08:51] LABS: ABSOLUTE BASOPHIL COUNT 0 /CUMM (0.0-0.2); ABSOLUTE EOSINOPHIL COUNT 0.1 /CUMM (0.0-0.7); ABSOLUTE GRANULOCYTE CT 7.9 /CUMM (1.4-6.5); ABSOLUTE LYMPH COUNT 1.5 /CUMM (1.2-3.4); ABSOLUTE MONOCYTE COUNT 0.8 /CUMM (0.10-0.60); BASOPHIL % 0.2 % (0.0-2.0); GRANULOCYTE % 76.1 % (42.2-75.2); HEMATOCRIT 31.5 % (37-47); MEAN CORPUSCULAR HGB 28.3 PG (27.0-31.0); MEAN CORPUSCULAR HGB CONC 32.7 G/DL (33.0-37.0); MEAN CORPUSCULAR VOLUME 86.6 FL (81.0-99.0); MEAN PLATELET VOLUME 8.5 FL (7.4-10.4); PLATELET COUNT 198 /CUMM (130-400); RBC DISTRIBUTION WIDTH 13.8 % (11.5-14.5); RED BLOOD CELL CT 3.64 /CUMM (4.20-5.40); WHITE BLOOD CELL COUNT 10.4 /CUMM (4.8-10.8)
--- NOTE | 2017-01-04 09:15 | PN- Housestaff ---
Subjective Follow-up For: Urosepsis Bursitis of the right olecranon BURSA Rhabdomyolysis History of MS Complaints: Right arm pain Subjective: Patient seen and examined. She feels weak, still complain of right arm pain, 8/ 10 in severity, she spikes fever this am. She also c/o heart burn, no other complaint. Review of Systems Constitutional: Reports: fever, malaise. EENTM: Reports: no symptoms. Cardiovascular: Reports: no symptoms. Respiratory: Reports: no symptoms. Gastrointestinal: Reports: no symptoms. Genitourinary: Reports: no symptoms. Musculoskeletal: Reports: joint pain (right arm). Skin: Reports: no symptoms. Neurological/Psychological: Reports: no symptoms. Hematologic/Endocrine: Reports: no symptoms. Objective Last 24 Hrs of Vital Signs/I&O Vital Signs Date Time Temp Pulse Resp B/P Pulse O2 O2 Flow FiO2 Ox Delivery Rate 01/04 0843 100.0 01/04 0654 101.5 87 18 136/70 94 Room Air 01/04 0651 101.3 01/03 2248 97.0 83 18 136/78 93 Room Air 01/03 1426 97.5 90 18 140/80 94 Room Air 01/03 1030 100.2 Intake & Output 01/04 1600 01/04 0800 01/04 0000 Intake Total Output Total Balance Number 0 Bowel Movements Physical Exam General Appearance: Alert, Oriented X3, Cooperative, Moderate Distress HEENT: Atraumatic, PERRLA, EOMI, Mucous Membr. moist/pink Cardiovascular: Normal S1, Normal S2, No Murmurs Lungs: Clear to Auscultation, Normal Air Movement Abdomen: Normal Bowel Sounds, Soft, No Tenderness Extremities: No Edema, Normal Pulses Current Medications: Current Medications Sig/Francy Start time Last Medication Dose Route Stop Time Status Admin Acetaminophen 1,000 MG Q6P PRN 01/03 0930 AC 01/04 N/A 1 UNIT IV 0651 Alprazolam 0.5 MG Q6-PRN PRN 12/30 1415 AC 01/04 PO 01/06 1414 0848 Anastrozole 1 MG DAILY 12/29 1533 AC 01/04 PO 0838 Baclofen 10 MG DAILY NEEDED PRN 12/29 1545 AC PO Cefazolin Sodium 2 GM IQ8 01/04 0000 AC 01/04 N/A 1 UNIT IV 0831 Ceftriaxone Sodium 1,000 MG DAILY 01/02 1000 DC 01/03 IV 1011 Enoxaparin Sodium 40 MG DAILY 12/29 1518 AC 01/04 SC 0836 Gabapentin 100 MG TID PRN 12/29 1545 AC 12/30 PO 1828 Hydromorphone HCl 1 MG ONCE PRN 01/03 1330 DC IV 01/03 1930 Levothyroxine Sodium 0.05 MG DAILY AC 12/30 0700 AC 01/04 PO 0649 Mirabegron 50 MG DAILY 12/29 1600 AC 01/04 PO 0837 Paroxetine HCl 20 MG DAILY 12/30 1000 AC 01/04 PO 0837 Patient Medication 1 ED .STK-MED ONE 01/03 1412 DC Teaching ED 01/03 1413 Timolol Maleate 1 GTT BID 12/29 1538 AC 01/04 OPH 0838 Tramadol HCl 50 MG Q8 PRN 01/02 1115 AC 01/03 PO 1031 Last 24 Hrs of Lab/Waqar Results Last 24 Hrs of Labs/Mics: Laboratory Tests 01/04/17 0800: Anion Gap 7, Estimated GFR > 60, BUN/Creatinine Ratio 18.3, CBC w Diff NO MAN DIFF REQ, RBC 3.64 L, MCV 86.6, MCH 28.3, RDW 13.8, MPV 8.5, Gran % 76.1 H, Lymphocytes % 14.8 L, Monocytes % 7.9, Eosinophils % 1.0, Basophils % 0.2, Absolute Granulocytes 7.9 H, Absolute Lymphocytes 1.5, Absolute Monocytes 0.8 H, Absolute Eosinophils 0.1, Absolute Basophils 0, PUBS MCHC 32.7 L Assessment/Plan Assessment: Patient is a 71-year-old female with past medical history of left breast cancer status post mastectomy currently on an anastrozole, MS, osteoarthritis, hyperlipidemia, status post left knee replacement who was brought into the ED by her son for the evaluation of a fall and weakness apparently mechanical. Plan 1.Sepsis of urological origin Vs Rt olecranon bursitis : Spiking fevers this am with MAXIMUM TEMPERATURE of 101.5 -White count 10.4 -Right elbow swelling and possible fluctuation -Has been spiking fevers on antibiotics at am, blood cultures X 2sent yesterday , still pending -CT abdomen and pelvis showed no abscess or mass. -IV fluids stopped. Patent patient tolerating diet. -Continue IV Cefoazolin , day 6 of antibiotics -Blood and urine cultures positive Escherichia coli . Possibility of a second gram-negative bug. -No urological complaints.Patient has a neurogenic bladder and is on merbetriq.. -IV Tylenol for fever -ID following 2. Right arm questionable bursitis -No gas noted in the soft tissue on x-ray. -Elevation and warm soaks to the right forearm -Ortho input appreciated, patient might need to be tapped. -MRI: Extensive soft tissue and subcutaneous edema and enhancement with fluid signal posterior to the triceps and olecranon suggesting phlegmonous change and developing abscess. -Will place surgical consult -Will add Vicodin to her pain regimen, 1tab q6 hr, prn 3. Unwitnessed fall/rhabdomyolysis -CPK added to am lab, will follow -Holding statin for muscle injury -X-ray right wrist to rule out fracture negative for fracture -Physical therapy evaluation for regaining strength -Ortho consult awaited. -Patient needs a new walker, reports a previous walker was not functioning properly. - Plan for Safe discharge/STR placement 4. Elevated troponins: Likely demand ischemia -Troponins trended down -ACS ruled out with negative troponins and EKG -Echocardiogram shows EF of more than 60%, no wall motion abnormalities, stage I diastolic dysfunction. 5. History of MS -No neurological deficits -Continue baclofen and gabapentin as needed for muscle spasm and neuropathic pain -Continue merbetriq for neurogenic bladder -Dr. Ga in [place] is patient's MS doctor. 6. Multiple blisters opened/fluid-filled over the body? [place] -Patient reports the blisters are secondary to overheating in her apartment. -Local wound care to multiple blisters -Social work consult given unclear etiology of the blisters. Evaluation of home situation required. 7. History of left breast cancer status post mastectomy and radiation/currently on hormonal therapy -Continue anastrozole -Courtsey call to Dr Patterson patient's radiation oncologist Heart healthy diet Full code Mild pain pathway Problem List: 1. UTI (urinary tract infection) 2. Right arm pain Pain Ratin Pain Location: right arm Pain Goal: Remain pain free Pain Plan: Vicodin added Tomorrow's Labs & Rationales: CBC, BEP, CPK DVT/Prophylaxis: pharmacological
--- NOTE | 2017-01-04 10:33 | PN- Att Addend ---
Attending Addendum Attending Brief Note Patient seen and examined. Plan of care discussed with the medical team and the patient. Available lab work and radiology test reports were reviewed. She denies any coughing phlegm but had recurrent fever fever. Patient reports severe pain in the right elbow. When right arm is passively moved she experiences severe pain. She states that her pain is not well controlled with Ultram. She will like to take Vicodin. Vital Signs Date Time Temp Pulse Resp B/P Pulse O2 O2 Flow FiO2 Ox Delivery Rate 01/04 0843 100.0 01/04 0654 101.5 87 18 136/70 94 Room Air 01/04 0651 101.3 01/03 2248 97.0 83 18 136/78 93 Room Air 01/03 1426 97.5 90 18 140/80 94 Room Air 01/03 1030 100.2 Intake & Output 01/04 1600 01/04 0800 01/04 0000 Intake Total Output Total Balance Number 0 Bowel Movements Exam: General: Patient awake alert oriented without any distress CVS: S1 plus S2 without any murmur or gallops Chest: Few scattered crepitation without any wheeze. There is no respiratory distress. 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 follows command appropriately Extremities: No edema; no clubbing or cyanosis noted; she is unable to lift right hand. Right elbow is swollen integrated and tender with severe pain on passive motions. Right Forearm has a superficial erosion and redness and warmth over the dorsal aspect of forearm which has decreased since yesterday. Laboratory Tests 01/04 08 Chemistry Sodium (137 - 145 mmol/L) 134 L Potassium (3.5 - 5.1 mmol/L) 3.9 Chloride (98 - 107 mmol/L) 99 Carbon Dioxide (22 - 30 mmol/L) 28 Anion Gap (5 - 16) 7 BUN (7 - 17 mg/dL) 11 Creatinine (0.5 - 1.0 mg/dL) 0.6 Estimated GFR (>60 ml/min) > 60 BUN/Creatinine Ratio (7 - 25 %) 18.3 Creatine Kinase (30 - 135 U/L) Pending Hematology CBC w Diff NO MAN DIFF REQ WBC (4.8 - 10.8 /CUMM) 10.4 RBC (4.20 - 5.40 /CUMM) 3.64 L Hgb (12.0 - 16.0 G/DL) 10.3 L Hct (37 - 47 %) 31.5 L MCV (81.0 - 99.0 FL) 86.6 MCH (27.0 - 31.0 PG) 28.3 RDW (11.5 - 14.5 %) 13.8 Plt Count (130 - 400 /CUMM) 198 MPV (7.4 - 10.4 FL) 8.5 Gran % (42.2 - 75.2 %) 76.1 H Lymphocytes % (20.5 - 51.1 %) 14.8 L Monocytes % (1.7 - 9.3 %) 7.9 Eosinophils % (0 - 5 %) 1.0 Basophils % (0.0 - 2.0 %) 0.2 Absolute Granulocytes (1.4 - 6.5 /CUMM) 7.9 H Absolute Lymphocytes (1.2 - 3.4 /CUMM) 1.5 Absolute Monocytes (0.10 - 0.60 /CUMM) 0.8 H Absolute Eosinophils (0.0 - 0.7 /CUMM) 0.1 Absolute Basophils (0.0 - 0.2 /CUMM) 0 PUBS MCHC (33.0 - 37.0 G/DL) 32.7 L Right upper extremity venous Doppler was negative for DVT. MRI right arm Extensive soft tissue and subcutaneous edema and enhancement with fluid signal posterior to the triceps and olecranon suggesting phlegmonous change and developing abscess. A more discrete peripherally enhancing subcutaneous fluid collection measuring 2.2 x 0.8 x 1.5 cm was present superficial to the extensor carpi ulnaris muscle likely representing an abscess. Edema and enhancement of the underlying triceps muscle and some of the muscles of the extensor compartment concerning for infection/myositis. In addition, portions of the anconeus, extensor carpi ulnaris, abductor pollicis longus, and extensor digiti minimi muscles demonstrate muscle edema with peripheral enhancement only, concerning for early/developing myonecrosis. No evidence of osteomyelitis. Assessment * Sepsis of urological origin * Recurrent fever likely due to cellulitis of right forearm. MRI shows myonecrosis and extensive soft tissue swelling. * Rhabdomyolysis * History of MS * Elevated troponin likely demand ischemia Plan * Continue IV antibiotics cefazolin; * Obtain general surgery consult to see if patient needs debridement * Elevate right forearm * Warm compresses to right elbow and arm * Add Vicodin for severe pain 1 pill every 6 hours when necessary for pain more than 6
--- NOTE | 2017-01-04 12:32 | PN- Infect Dx ---
Subjective Subjective: MAXIMUM TEMPERATURE 101.5. She feels better with decreased pain in the right arm. Objective Last 24 Hrs of Vital Signs/I&O Vital Signs Date Time Temp Pulse Resp B/P Pulse O2 O2 Flow FiO2 Ox Delivery Rate 01/04 0843 100.0 01/04 0654 101.5 87 18 136/70 94 Room Air 01/04 0651 101.3 01/03 2248 97.0 83 18 136/78 93 Room Air 01/03 1426 97.5 90 18 140/80 94 Room Air Intake & Output 01/04 1600 01/04 0800 01/04 0000 Intake Total Output Total Balance Number 0 Bowel Movements Physical Exam Other Physical Findings: She appears more comfortable in no acute distress Lungs are clear Heart regular rhythm with no murmur Back mild right CVA tenderness Extremities decreased swelling and tenderness of the right forearm, with increased range of motion of the right elbow, with decreased inflammation over the olecranon bursa; no cyanosis, clubbing or edema of the lower extremities Results Last 24 Hours of Lab Results: Laboratory Tests 01/04 0800 Chemistry Sodium (137 - 145 mmol/L) 134 L Potassium (3.5 - 5.1 mmol/L) 3.9 Chloride (98 - 107 mmol/L) 99 Carbon Dioxide (22 - 30 mmol/L) 28 Anion Gap (5 - 16) 7 BUN (7 - 17 mg/dL) 11 Creatinine (0.5 - 1.0 mg/dL) 0.6 Estimated GFR (>60 ml/min) > 60 BUN/Creatinine Ratio (7 - 25 %) 18.3 Creatine Kinase (30 - 135 U/L) 461 H Hematology CBC w Diff NO MAN DIFF REQ WBC (4.8 - 10.8 /CUMM) 10.4 RBC (4.20 - 5.40 /CUMM) 3.64 L Hgb (12.0 - 16.0 G/DL) 10.3 L Hct (37 - 47 %) 31.5 L MCV (81.0 - 99.0 FL) 86.6 MCH (27.0 - 31.0 PG) 28.3 RDW (11.5 - 14.5 %) 13.8 Plt Count (130 - 400 /CUMM) 198 MPV (7.4 - 10.4 FL) 8.5 Gran % (42.2 - 75.2 %) 76.1 H Lymphocytes % (20.5 - 51.1 %) 14.8 L Monocytes % (1.7 - 9.3 %) 7.9 Eosinophils % (0 - 5 %) 1.0 Basophils % (0.0 - 2.0 %) 0.2 Absolute Granulocytes (1.4 - 6.5 /CUMM) 7.9 H Absolute Lymphocytes (1.2 - 3.4 /CUMM) 1.5 Absolute Monocytes (0.10 - 0.60 /CUMM) 0.8 H Absolute Eosinophils (0.0 - 0.7 /CUMM) 0.1 Absolute Basophils (0.0 - 0.2 /CUMM) 0 PUBS MCHC (33.0 - 37.0 G/DL) 32.7 L Last 24 Hours of Waqar Results: Blood cultures 2 January 03 negative Recent Imaging Studies: MRI of the right elbow reveals extensive soft tissue and subcutaneous edema and enhancement with fluid signal posterior to the triceps and olecranon suggesting phlegmonous change and developing abscess. A more discrete peripherally enhancing subcutaneous fluid collection measuring 2.2 x 0.8 x 1.5 cm was present superficial to the extensor carpi ulnaris muscle likely representing an abscess. Edema and enhancement of the underlying triceps muscle and some of the muscles of the extensor compartment concerning for infection/myositis. In addition, portions of the anconeus, extensor carpi ulnaris, abductor pollicis longus, and extensor digiti minimi muscles demonstrate muscle edema with peripheral enhancement only, concerning for early/developing myonecrosis; no evidence of osteomyelitis. Doppler of the right upper extremity January 03 negative Assessment/Plan Impression: Persistent fevers, though they appear somewhat lower grade, with white blood cell count normal now on Cefazolin Day 6 of treatment for Escherichia coli sepsis, presumably of urologic origin. Her MRI results are as noted and suggest the development of abscesses and possible myonecrosis, though, clinically, she appears to have less inflammation. The etiology of this inflammation is unclear and possibilities include trauma secondary to her fall at home or seeding from her bacteremia. Have discussed with Radiology, who does not feel that she has a drainable process at this time. Suggestion: 1. Agree with General surgical evaluation 2. Continue warm compresses and elevation of her right forearm 3. Continue Cefazolin
[2017-01-04 14:43] VITALS: BP 112/70
--- NOTE | 2017-01-04 20:10 | Cons- General Surgery ---
See Addendum General Information and HPI Consulting Request Date of Consult: 01/04/17 Requested By: CHRIST HDZ,ANNEL Hamm History of Present Illness: 71-year-old nondiabetic nonsmoker with MS implants with assistance, cane, was admitted on the fifth brought to the ER from home having fallen and was unable to get up and was found to have multiple abrasions contusions and superficial ott on her arms and legs and torso and head. One of these areas, her right elbow and forearm was noted to be quite swollen and imaging was done and surgical consult was called. She says the area is sore but is able to move her arm a little bit she's not sure if that's the spot she fell on initially, regarding the ott themselves she recalls that she had the heat on higher because it was very cold. She denies recalling any redness or drainage from the elbow area this area has been evaluated by orthopedic surgery. The PFSH were reviewed denies any history of bleeding problems heart disease, Family history is negative for breast cancer, past surgical history includes left mastectomy and bilateral carpal tunnel release. Allergies/Medications Allergies: Coded Allergies: NO KNOWN ALLERGIES (02/17/13) Home Med List: Alprazolam 0.5 MG TABLET 1 TAB PO 4XDP PRN ANXIETY (Reported) Anastrozole 1 MG TABLET 1 TAB PO DAILY CANCER (Reported) Ascorbic Acid (Vitamin C) 1,000 MG TABLET 1 TAB PO BID SUPPLEMENT (Reported) Atorvastatin Calcium 40 MG TABLET 1 TAB PO DAILY CHOLESTEROL (Reported) Baclofen 20 MG TABLET 1 TAB PO BID SPASMS (Reported) Baclofen 10 MG TABLET 1 TAB PO DAILY NEEDED PRN SPASMS (Reported) Calcium Carbonate/Vitamin D3 (Calcium + Vitamin D Tablet) 600 MG-200 TABLET 1 TAB PO BID SUPPLEMENT (Reported) Cephalexin (Keflex) 500 MG CAPSULE 1 CAP PO Q6 hand infection please continue antibiotic till 01/13/17 Clemastine Fumarate 2.68 MG TABLET 1 TAB PO DAILY NEEDED PRN ALLERGIES ( Reported) Cyanocobalamin (Vitamin B-12) 1,000 MCG TABLET 2 TAB PO DAILY SUPPLEMENT ( Reported) Diclofenac Sodium (Voltaren) 1 % GEL..GRAM. 1 GM TOP 4 TIMES/DAY PRN KNEE PAIN (Reported) apply to affected area(s) Emollient Combination No.10 (Biafine) 45 GM EMULSN.G. 1 EMIR TOP DAILY UNKNOWN (Reported) Gabapentin 100 MG CAPSULE 1 CAP PO TID PRN PAIN (Reported) Glucosamine Sulfate (Unknown Strength) CAPSULE (Unknown Dose) PO DAILY SUPPLEMENT (Reported) Hydrocodone/Acetaminophen (Vicodin 5-300 MG Tablet) 5 MG-300 MG TABLET 1 TAB PO Q4 HRS NEEDED PRN PAIN (Reported) Interferon Beta-1a (Avonex) 30 MCG/0.5 ML SYRINGEKIT 1 INJ QMON UNKNONW ( Reported) Latanoprost (Xalatan) 0.005 % DROPS 1 GTT OPH QPM EYE (Reported) Levothyroxine Sodium (Synthroid) 75 MCG TABLET 1 TAB PO DAILY AC THYROID ( Reported) Paroxetine HCl (Paxil) 20 MG TABLET 1 TAB PO DAILY MENTAL HEALTH (Reported) Prochlorperazine Maleate (Compazine) 10 MG TABLET 1 TAB PO Q4 HRS NEEDED PRN NAUSEA/VOMITING (Reported) Pyridoxine HCl 500 MG TABLET 2 TAB PO DAILY SUPPLEMENT (Reported) Quazepam ([place]) 15 MG TABLET 1 TAB PO QPMP PRN SLEEP (Reported) Timolol Maleate 0.5 % DROPS 1 GTT OPH BID EYE (Reported) Ubidecarenone (Co Q-10) 100 MG CAPSULE 1 CAP PO DAILY SUPPLEMENT (Reported) Current Medications: I reviewed Current Medications Sig/Francy Start time Last Medication Dose Route Stop Time Status Admin Acetaminophen 1,000 MG Q6P PRN 01/03 0930 AC 01/04 N/A 1 UNIT IV 0651 Acetaminophen/ 1 TAB Q6P PRN 01/04 1030 AC Hydrocodone Bitart PO Alprazolam 0.5 MG Q6-PRN PRN 12/30 1415 AC 01/04 PO 01/06 1414 0848 Anastrozole 1 MG DAILY 12/29 1533 AC 01/04 PO 0838 Baclofen 10 MG DAILY NEEDED PRN 12/29 1545 AC PO Cefazolin Sodium 2 GM IQ8 01/04 0000 AC 01/04 N/A 1 UNIT IV 1614 Enoxaparin Sodium 40 MG DAILY 12/29 1518 AC 01/04 SC 0836 Famotidine 20 MG DAILY 01/04 1025 AC 01/04 PO 1243 Gabapentin 100 MG TID PRN 12/29 1545 AC 12/30 PO 1828 Levothyroxine Sodium 0.05 MG DAILY AC 12/30 0700 AC 01/04 PO 0649 Mirabegron 50 MG DAILY 12/29 1600 AC 01/04 PO 0837 Omeprazole 40 MG DAILY AC 01/04 1024 DC PO Paroxetine HCl 20 MG DAILY 12/30 1000 AC 01/04 PO 0837 Timolol Maleate 1 GTT BID 12/29 1538 AC 01/04 OPH 0838 Tramadol HCl 50 MG Q8 PRN 01/02 1115 AC 01/03 PO 1031 Past History Medical History Blood Transfusion Hx: Yes Neurological: multiple sclerosis EENT: retinal detachment Cardiovascular: hyperlipidemia Respiratory: NONE Gastrointestinal: NONE Hepatic: NONE Renal: NONE Musculoskeletal: osteoarthritis Psychiatric: NONE Endocrine: NONE Blood Disorders: NONE Cancer(s): L BREAST CANCER INFLAMMATORY CANCER status post bilateral carpal tunnel release [employer]/Reproductive: NONE Surgical History Pertinent Surgical History: masectomy (left) Psychosocial History Where Do You Live? Home Services at Home: Nursing Smoking Status: Never Smoked Review of Systems Review of Systems: As above, Constitutional: No fever, sweats or weight loss ENMT: No sore throat Cardiovascular: No chest pain, palpitations or leg swelling Respiratory: No shortness of breath, cough, or sputum or dyspnea on exertion GI: No GERD or bleeding per rectum : No dysuria or hematuria Musculoskeletal: No new muscle weakness, bone or joint pain Skin / Breast: No jaundice, rashes or itching Psychiatric: No history of drug or alcohol abuse no depression or anxiety Hematologic / lymphatic system: No problems with excessive bleeding, bruising, or blood clots Exam & Diagnostic Data Vital Signs and I&O I reviewed Vital Signs Date Time Temp Pulse Resp B/P Pulse O2 O2 Flow FiO2 Ox Delivery Rate 01/04 1443 98.2 88 20 112/70 96 01/04 0843 100.0 01/04 0654 101.5 87 18 136/70 94 Room Air 01/04 0651 101.3 01/03 2248 97.0 83 18 136/78 93 Room Air I reviewed Intake & Output 01/04 1600 01/04 0800 01/04 0000 01/03 1600 01/03 0800 01/03 0000 Intake Total 460 600 120 450 Output Total 400 400 100 353 Balance 60 200 20 97 Intake, IV 10 Intake, Oral 450 600 120 450 Number 0 0 Bowel Movements Output, Stool 3 Output, Urine 400 400 100 350 Physical Exam: Constitutional: pleasant, no acute distress, conversant Eyes: sclera anicteric ENMT: ears and nose atraumatic, moist mucous membranes, good dentition, no lip lesions Neck: Supple, trachea is midline, no cervical or supraclavicular adenopathy and no palpable thyromegaly Cardiovascular: S1, S2, no murmurs, no peripheral edema Respiratory: clear to auscultation with normal respiratory effort and no intercostal retractions GI: abdomen soft, nontender, nondistended, no palpable hepatosplenomegaly Extremities / lymphatics: symmetrically warm, no peripheral edema, no cervical, supraclavicular, axillary, or inguinal adenopathy, decreased range of motion at right elbow but not really painful, there is some edema in the proximal forearm no obvious skin breakdown no skin necrosis no induration or erythema. Musculoskeletal: Normal gait and station, no digital cyanosis, good muscle strength and tone no atrophy, motor grossly 5 out of 5 throughout Skin: no jaundice, no rashes warm, nondiaphoretic, there are several areas of superficial abrasions and contusions, notably both arms and legs and also at the area of the right elbow swelling and superficial ott presently covered with pieces of Xeroform and nonstick dressings. Psychiatric: mood and affect are appropriate and alert and oriented to person place and time Last 24 Hours of Labs: I reviewed Laboratory Tests 01/04 0800 Chemistry Sodium (137 - 145 mmol/L) 134 L Potassium (3.5 - 5.1 mmol/L) 3.9 Chloride (98 - 107 mmol/L) 99 Carbon Dioxide (22 - 30 mmol/L) 28 Anion Gap (5 - 16) 7 BUN (7 - 17 mg/dL) 11 Creatinine (0.5 - 1.0 mg/dL) 0.6 Estimated GFR (>60 ml/min) > 60 BUN/Creatinine Ratio (7 - 25 %) 18.3 Creatine Kinase (30 - 135 U/L) 461 H Hematology CBC w Diff NO MAN DIFF REQ WBC (4.8 - 10.8 /CUMM) 10.4 RBC (4.20 - 5.40 /CUMM) 3.64 L Hgb (12.0 - 16.0 G/DL) 10.3 L Hct (37 - 47 %) 31.5 L MCV (81.0 - 99.0 FL) 86.6 MCH (27.0 - 31.0 PG) 28.3 RDW (11.5 - 14.5 %) 13.8 Plt Count (130 - 400 /CUMM) 198 MPV (7.4 - 10.4 FL) 8.5 Gran % (42.2 - 75.2 %) 76.1 H Lymphocytes % (20.5 - 51.1 %) 14.8 L Monocytes % (1.7 - 9.3 %) 7.9 Eosinophils % (0 - 5 %) 1.0 Basophils % (0.0 - 2.0 %) 0.2 Absolute Granulocytes (1.4 - 6.5 /CUMM) 7.9 H Absolute Lymphocytes (1.2 - 3.4 /CUMM) 1.5 Absolute Monocytes (0.10 - 0.60 /CUMM) 0.8 H Absolute Eosinophils (0.0 - 0.7 /CUMM) 0.1 Absolute Basophils (0.0 - 0.2 /CUMM) 0 PUBS MCHC (33.0 - 37.0 G/DL) 32.7 L Assessment/Plan Assessment/Plan Studies: I reviewed on PACS myself yesterday's MR and ultrasound of her right arm, there is no obvious DVT there is no obvious clear abscess collection on the radiologist's report on the MRI there is described 3 separate areas of possible developing myonecrosis or abscess. But on my review these areas are relatively flat and confluent and not that distinct from the surrounding edema. Impression is right elbow and forearm contusion that occurred almost a week ago, there is no history of any penetrating trauma, given the radiologist's report, one would think that if she had simultaneous 2 areas of abscessses and a separate area of myonecrosis, that after this many days there would be more physical signs but on exam it's mostly just edema, this is separate from the superficial abrasions and ott. Also she's been evaluated by orthopedic surgery regarding any deep intra-articular issue. Also on exam there is no definite area of peaking or induration or necrosis that could direct a surgical incision, expecting drainage of pus. I would treat empirically for possibility of an element of cellulitis given the superficial skin breakdown nearby. We'll follow. Problem List: 1. Cellulitis 2. Contusion 3. Fall Consult Acknowledgment - Thank you for your consult request.
[2017-01-04 21:48] VITALS: BP 140/60
[2017-01-05 04:04] VITALS: BP 145/60
[2017-01-05 06:00] VITALS: BP 122/60
--- NOTE | 2017-01-05 09:10 | PN- Housestaff ---
Subjective Follow-up For: Urosepsis Bursitis/cellulitis of the right olecranon BURSA Rhabdomyolysis History of MS S/p fall Left leg swelling Complaints: Swelling over left anterior leg Subjective: Patient seen and examined. She feels better today, pain is well controlled on vicodin. Review of Systems Constitutional: Denies: see HPI. Objective Last 24 Hrs of Vital Signs/I&O Vital Signs Date Time Temp Pulse Resp B/P Pulse O2 O2 Flow FiO2 Ox Delivery Rate 01/05 600 99.9 73 18 122/60 95 Room Air 01/04 2148 99.5 93 20 140/60 94 Room Air 01/04 1443 98.2 88 20 112/70 96 Intake & Output 01/05 1600 01/05 0800 01/05 0000 Intake Total 170 350 Output Total 550 350 Balance -380 0 Intake, IV 50 Intake, Oral 120 350 Number 0 Bowel Movements Output, Urine 550 350 Physical Exam General Appearance: Alert, Oriented X3, Cooperative, No Acute Distress Skin: large bruise and swelling over left anterior tibia just below the knee, flattenned blisters over both anterior thighs Cardiovascular: Regular Rate, Normal S1, Normal S2, No Murmurs Lungs: Clear to Auscultation, Normal Air Movement Abdomen: Normal Bowel Sounds, Soft, No Tenderness Extremities: No Edema, Normal Pulses Current Medications: Current Medications Sig/Francy Start time Last Medication Dose Route Stop Time Status Admin Acetaminophen 1,000 MG Q6P PRN 01/03 0930 AC 01/04 N/A 1 UNIT IV 0651 Acetaminophen/ 1 TAB Q6P PRN 01/04 1030 AC Hydrocodone Bitart PO Alprazolam 0.5 MG Q6-PRN PRN 12/30 1415 AC 01/05 PO 01/06 1414 0825 Anastrozole 1 MG DAILY 12/29 1533 AC 01/05 PO 0826 Baclofen 10 MG DAILY NEEDED PRN 12/29 1545 AC PO Cefazolin Sodium 2 GM IQ8 01/04 0000 AC 01/05 N/A 1 UNIT IV 0826 Enoxaparin Sodium 40 MG DAILY 12/29 1518 AC 01/05 SC 0826 Famotidine 20 MG DAILY 01/04 1025 AC 01/05 PO 0826 Gabapentin 100 MG TID PRN 12/29 1545 AC 12/30 PO 1828 Levothyroxine Sodium 0.05 MG DAILY AC 12/30 0700 AC 01/05 PO 0629 Mirabegron 50 MG DAILY 12/29 1600 AC 01/05 PO 0826 Omeprazole 40 MG DAILY AC 01/04 1024 DC PO Paroxetine HCl 20 MG DAILY 12/30 1000 AC 01/05 PO 0826 Timolol Maleate 1 GTT BID 12/29 1538 AC 01/05 OPH 0826 Tramadol HCl 50 MG Q8 PRN 01/02 1115 AC 01/05 PO 0826 Last 24 Hrs of Lab/Waqar Results Last 24 Hrs of Labs/Mics: no labs Lines/Diet/Fluids Lines: peripheral lines Assessment/Plan Assessment: Patient is a 71-year-old female with past medical history of left breast cancer status post mastectomy currently on an anastrozole, MS, osteoarthritis, hyperlipidemia, status post left knee replacement who was brought into the ED by her son for the evaluation of a fall and weakness apparently mechanical. Plan 1.Sepsis of urological origin Vs sepsis from Rt olecranon bursitis/cellulitis : MAXIMUM TEMPERATURE of 99.9 -No labs drawn today -Still having low grade temp -blood cultures X 2-no growth after 1 day -Continue IV Cefoazolin, day 7 of antibiotics -No urological complaints. Patient has a neurogenic bladder and is on merbetriq. -IV Tylenol for fever -ID following 2. Right arm/elbow questionable bursitis/cellulitis -Surgical evaluation yesterday reports that on exam there is no focal spot indicating an incision and drainage this could just be all edema. Awaiting surgeon's evaluation of imaging for final recommendation. -Continue elevation and warm soaks to the right forearm/elbow -Improved pain control; Continue Vicodin 1tab q6 hr, prn 3. Unwitnessed fall/rhabdomyolysis -CPK trending down-461 yesterday -Holding statin for muscle injury -Physical therapy evaluation for regaining strength -Patient needs a new walker, reports a previous walker was not functioning properly. -Plan for Safe discharge/STR placement -Large bruis over Left leg, below knee. RN thinks swelling has been increasing in size since admission. Will order an Xray of the left LE to r/o fracture or hematoma collection. Appy ice PRN and keep leg elevated when in bed or sitting. 4. Elevated troponins: Likely demand ischemia -Troponins trended down -ACS ruled out with negative troponins and EKG -Echocardiogram shows EF of more than 60%, no wall motion abnormalities, stage I diastolic dysfunction. 5. History of MS -No neurological deficits -Continue baclofen and gabapentin as needed for muscle spasm and neuropathic pain -Continue merbetriq for neurogenic bladder; Vit A&D for incontinence rash -Dr. Ga in [place] is patient's MS doctor; she will follow with him after discharge 6. Multiple blisters opened/fluid-filled over the body ? [place] -Patient reports the blisters are secondary to overheating in her apartment. -Continue local wound care to multiple blisters -Social work consult given unclear etiology of the blisters. Evaluation of home situation required. 7. History of left breast cancer status post mastectomy and radiation/currently on hormonal therapy -Continue anastrozole -Courtsey call to Dr Patterson patient's radiation oncologist Heart healthy diet Full code Mild pain pathway Problem List: 1. Right arm pain 2. Cellulitis 3. Rhabdomyolysis 4. UTI (urinary tract infection) 5. Fall Pain Ratin Pain Location: Rt arm, left LE Pain Goal: Remain pain free Pain Plan: continue Vicodin Tomorrow's Labs & Rationales: CBC-low grade temp
--- NOTE | 2017-01-05 10:40 | PN- Att Addend ---
Attending Addendum Attending Brief Note Patient seen and examined. Plan of care discussed with the medical team and the patient. Available lab work and radiology test reports were reviewed. She denies any coughing phlegm but had recurrent fever fever. Patient reports severe pain in the right elbow but she appears more comfortable with Vicodin. Right arm swelling has decreased. Vital Signs Date Time Temp Pulse Resp B/P Pulse O2 O2 Flow FiO2 Ox Delivery Rate 01/05 0600 99.9 73 18 122/60 95 Room Air 01/04 2148 99.5 93 20 140/60 94 Room Air 01/04 1443 98.2 88 20 112/70 96 Intake & Output 01/05 1600 01/05 0800 01/05 0000 Intake Total 170 350 Output Total 550 350 Balance -380 0 Intake, IV 50 Intake, Oral 120 350 Number 0 Bowel Movements Output, Urine 550 350 xam: General: Patient awake alert oriented without any distress CVS: S1 plus S2 without any murmur or gallops Chest: Few scattered crepitation without any wheeze. There is no respiratory distress. Abdomen: Soft nontender, bowel sound present, no guarding or rebound PAYING TELLER: Awake alert oriented with bright on weakness and bilateral lower extremities weakness 3 over 5. follows command appropriately Extremities: no clubbing or cyanosis noted; she is unable to lift right hand. Right arm and elbow is swollen but overall edema has decreased. Patient continues to have pain with passive motion of the right elbow and arm. Right Forearm has a superficial erosion posteriorly and redness and warmth has decreased. No new labs done today; CK level is 461 yesterday. Assessment * Sepsis of urological origin * Recurrent fever likely due to cellulitis of right forearm. MRI shows myonecrosis and extensive soft tissue swelling. Fever has finally subsided * Rhabdomyolysis * History of MS * Elevated troponin likely demand ischemia Plan * Continue IV antibiotics cefazolin; * general surgery consult in progress to see if patient needs debridement * Continue to Elevate right forearm * Continue Warm compresses to right elbow and arm * Continue Vicodin for severe pain 1 pill every 6 hours when necessary for pain more than 6
--- NOTE | 2017-01-05 14:45 | RADIOLOGY REPORT ---
EXAMINATION: XR TIBIA AND FIBULA, LEFT CLINICAL INFORMATION: Difficulty ambulating. Recent fall. Evaluate for fracture/hematoma. Increasing swelling over the anterior tibia below the left knee. COMPARISON: Left knee films dated 12/11/2010. TECHNIQUE: AP and lateral views of the left tibia and fibula were obtained on 4 images. FINDINGS: The patient is status post total left knee arthroplasty with prosthetic components appearing intact and anatomically aligned. No [place] bone fracture is seen. Ankle joint appears intact and unremarkable. There is mild soft tissue swelling over the anterior aspect of the proximal tibia. No radiopaque foreign body or subcutaneous air is seen. IMPRESSION: 1. Normal alignment status post total left knee arthroplasty with no hardware failure or [place] bone fracture seen. 2. Focal soft tissue swelling over the proximal anterior tibia. This is a nonspecific finding and may be related to hematoma as clinically suspected versus soft tissue edema. No radiopaque foreign body seen.
[2017-01-05 15:20] VITALS: BP 120/60
[2017-01-05 22:46] VITALS: BP 120/60
--- NOTE | 2017-01-05 22:59 | PN- General Surgery ---
Subjective Subjective: f/up LUE swelling ? abscess to drain I changed the dressing, she says her elbow feels a little bit better less swollen she is able to move it more. She denies any fevers or sweats. Objective Vital Signs and I&Os I reviewed Vital Signs Date Time Temp Pulse Resp B/P Pulse O2 O2 Flow FiO2 Ox Delivery Rate 01/05 2246 98.5 85 18 120/60 95 Room Air 01/05 1520 98.5 75 20 120/60 95 01/05 0600 99.9 73 18 122/60 95 Room Air I reviewed Intake & Output 01/05 1600 01/05 0800 01/05 0000 01/04 1600 01/04 0800 01/04 0000 Intake Total 1080 170 350 460 Output Total 450 550 350 400 Balance 630 -380 0 60 Intake, IV 0 50 10 Intake, Oral 1080 120 350 450 Number 0 0 0 0 Bowel Movements Output, Urine 450 550 350 400 Physical Exam: Constitutional: no acute distress no pain Eyes: sclera anicteric ENMT: moist mucous membranes Cardiovascular: S1-S2 no murmurs no peripheral edema Respiratory: clear to auscultation with normal respiratory effort and no intercostal retractions GI: abdomen soft nontender nondistended Extremities / lymphatics: Better right forearm and elbow range of motion less edema no erythema, no peripheral edema Skin: no jaundice no rashes warm, nondiaphoretic Psychiatric: mood and affect are appropriate and alert and oriented to person place and time Current Medications: i rviewed Current Medications Sig/Francy Start time Last Medication Dose Route Stop Time Status Admin Acetaminophen 1,000 MG Q6P PRN 01/03 0930 AC 01/04 N/A 1 UNIT IV 0651 Acetaminophen/ 1 TAB Q6P PRN 01/04 1030 AC Hydrocodone Bitart PO Alprazolam 0.5 MG Q6-PRN PRN 12/30 1415 AC 01/05 PO 01/06 1414 2139 Anastrozole 1 MG DAILY 12/29 1533 AC 01/05 PO 0826 Baclofen 10 MG DAILY NEEDED PRN 12/29 1545 AC PO Cefazolin Sodium 2 GM IQ8 01/04 0000 AC 01/05 N/A 1 UNIT IV 1611 Cholecalciferol 1,000 IU DAILY 01/05 1057 AC 01/05 PO 1317 Enoxaparin Sodium 40 MG DAILY 12/29 1518 AC 01/05 SC 0826 Famotidine 20 MG DAILY 01/04 1025 AC 01/05 PO 0826 Gabapentin 100 MG TID PRN 12/29 1545 AC 12/30 PO 1828 Levothyroxine Sodium 0.05 MG DAILY AC 12/30 0700 AC 01/05 PO 0629 Mirabegron 50 MG DAILY 12/29 1600 AC 01/05 PO 0826 Paroxetine HCl 20 MG DAILY 12/30 1000 AC 01/05 PO 0826 Timolol Maleate 1 GTT BID 12/29 1538 AC 01/05 OPH 2139 Tramadol HCl 50 MG Q8 PRN 01/02 1115 AC 01/05 PO 2041 Vitamin A/Vitamin D 1 EMIR BID 01/05 1029 AC TOP Results Last 48 Hours of Labs: I reviewed Laboratory Tests 01/04 0800 Chemistry Sodium (137 - 145 mmol/L) 134 L Potassium (3.5 - 5.1 mmol/L) 3.9 Chloride (98 - 107 mmol/L) 99 Carbon Dioxide (22 - 30 mmol/L) 28 Anion Gap (5 - 16) 7 BUN (7 - 17 mg/dL) 11 Creatinine (0.5 - 1.0 mg/dL) 0.6 Estimated GFR (>60 ml/min) > 60 BUN/Creatinine Ratio (7 - 25 %) 18.3 Creatine Kinase (30 - 135 U/L) 461 H Hematology CBC w Diff NO MAN DIFF REQ WBC (4.8 - 10.8 /CUMM) 10.4 RBC (4.20 - 5.40 /CUMM) 3.64 L Hgb (12.0 - 16.0 G/DL) 10.3 L Hct (37 - 47 %) 31.5 L MCV (81.0 - 99.0 FL) 86.6 MCH (27.0 - 31.0 PG) 28.3 RDW (11.5 - 14.5 %) 13.8 Plt Count (130 - 400 /CUMM) 198 MPV (7.4 - 10.4 FL) 8.5 Gran % (42.2 - 75.2 %) 76.1 H Lymphocytes % (20.5 - 51.1 %) 14.8 L Monocytes % (1.7 - 9.3 %) 7.9 Eosinophils % (0 - 5 %) 1.0 Basophils % (0.0 - 2.0 %) 0.2 Absolute Granulocytes (1.4 - 6.5 /CUMM) 7.9 H Absolute Lymphocytes (1.2 - 3.4 /CUMM) 1.5 Absolute Monocytes (0.10 - 0.60 /CUMM) 0.8 H Absolute Eosinophils (0.0 - 0.7 /CUMM) 0.1 Absolute Basophils (0.0 - 0.2 /CUMM) 0 PUBS MCHC (33.0 - 37.0 G/DL) 32.7 L Assessment/Plan Assessment/Plan Impression is left elbow and forearm contusion gradually resolving no signs of abscess no need for incisions there may be an element of some cellulitis, continue present care, elevate and maintain range of motion.
[2017-01-06 06:00] VITALS: BP 112/70
--- NOTE | 2017-01-06 07:53 | PN- Housestaff ---
[facility] 01/06/17 0741: Subjective Follow-up For: Urosepsis Bursitis of the right olecranon BURSA Rhabdomyolysis History of MS Complaints: pain in the right elbow Subjective: Patient has been afebrile overnight. Antibiotics have been changed to cefazolin. She complains of improved pain in her right elbow continues to have limited range of motion. She is being evaluated by surgery for possible debridement. White count improved, now normal. Review of Systems Constitutional: Reports: malaise, weakness. EENTM: Reports: no symptoms. Cardiovascular: Reports: no symptoms. Respiratory: Reports: no symptoms. Gastrointestinal: Reports: no symptoms. Genitourinary: Reports: no symptoms. Musculoskeletal: Reports: joint swelling, muscle pain, muscle stiffness (right elbow pain and swelling). Skin: Reports: change in skin color, change in hair/nails. Neurological/Psychological: Reports: no symptoms. Objective Last 24 Hrs of Vital Signs/I&O Vital Signs Date Time Temp Pulse Resp B/P Pulse O2 O2 Flow FiO2 Ox Delivery Rate 01/06 0600 76 18 112/70 96 Room Air 01/05 2246 98.5 85 18 120/60 95 Room Air 01/05 1520 98.5 75 20 120/60 95 Intake & Output 01/06 0800 01/06 0000 01/05 1600 Intake Total 440 881 9137 Output Total 350 450 450 Balance -180 -50 630 Intake, IV 50 0 Intake, Oral 011 127 2048 Number 0 0 Bowel Movements Output, Urine 350 450 450 Physical Exam General Appearance: Alert, Oriented X3, Cooperative, No Acute Distress Skin: swelling and edema over the right elbow area. Dressings intact.mastectomy scar over the left chest.multiple blisters over the arms and the legs. Area of skin breaks seen over the right elbow. right elbow area HEENT: Atraumatic, PERRLA, EOMI, Mucous Membr. moist/pink Neck: Supple, No JVD, No thryomegaly Lymphatic: Cervical nl Cardiovascular: Regular Rate, Normal S1, Normal S2, No Murmurs Lungs: Clear to Auscultation, Normal Air Movement Abdomen: Normal Bowel Sounds, Soft, No Tenderness Neurological: Normal Speech, Normal Tone, diminished power in the right upper extremity and bilateral lower extremities. Decreased light touch sensation in the left leg up to the knee Extremities: multiple skin restless seen over the arms and the legs.decreased swelling and tenderness of the right forearm., Decrease inflammation over the elbow joint Vascular: Normal Pulses Current Medications: Current Medications Sig/Francy Start time Last Medication Dose Route Stop Time Status Admin Acetaminophen 1,000 MG Q6P PRN 01/03 0930 AC 01/04 N/A 1 UNIT IV 0651 Acetaminophen/ 1 TAB Q6P PRN 01/04 1030 AC Hydrocodone Bitart PO Alprazolam 0.5 MG Q6-PRN PRN 12/30 1415 AC 01/05 PO 01/06 1414 2139 Anastrozole 1 MG DAILY 12/29 1533 AC 01/05 PO 0826 Baclofen 10 MG DAILY NEEDED PRN 12/29 1545 AC PO Cefazolin Sodium 2 GM IQ8 01/04 0000 AC 01/06 N/A 1 UNIT IV 0058 Cholecalciferol 1,000 IU DAILY 01/05 1057 AC 01/05 PO 1317 Enoxaparin Sodium 40 MG DAILY 12/29 1518 AC 01/05 SC 0826 Famotidine 20 MG DAILY 01/04 1025 AC 01/05 PO 0826 Gabapentin 100 MG TID PRN 12/29 1545 AC 12/30 PO 1828 Levothyroxine Sodium 0.05 MG DAILY AC 12/30 0700 AC 01/06 PO 0614 Mirabegron 50 MG DAILY 12/29 1600 AC 01/05 PO 0826 Paroxetine HCl 20 MG DAILY 12/30 1000 AC 01/05 PO 0826 Timolol Maleate 1 GTT BID 12/29 1538 AC 01/05 OPH 2139 Tramadol HCl 50 MG Q8 PRN 01/02 1115 AC 01/05 PO 2041 Vitamin A/Vitamin D 1 EMIR BID 01/05 1029 AC TOP Last 24 Hrs of Lab/Waqar Results Last 24 Hrs of Labs/Mics: k Assessment/Plan Assessment: Patient is a 71-year-old female with past medical history of left breast cancer status post mastectomy currently on an anastrozole, MS, osteoarthritis, hyperlipidemia, status post left knee replacement who was brought into the ED by her son for the evaluation of a fall and weakness apparently mechanical. Plan 1.Sepsis of urological origin Vs sepsis from Rt olecranon bursitis/cellulitis : MAXIMUM TEMPERATURE of 99.9 -Improved swelling of the right elbow -White count improved. Labs pending for this morning. -New blood cultures X 2-no growth. Previous blood cultures and urine cultures growing Escherichia coli. -Continue IV Cefoazolin, day 8 of antibiotics -No urological complaints. Patient has a neurogenic bladder and is on merbetriq. -IV Tylenol for fever -Tramadol for pain control -ID following 2. Right arm/elbow questionable bursitis/cellulitis -Surgical evaluation reports that on exam there is no focal spot indicating an incision and drainage this could just be all edema. Surgeon feels that this is soft tissue lesion with edema and and there is no drainable abscess/fluid collection. No drainage. -Continue elevation and warm soaks to the right forearm/elbow -Improved pain control; Continue Vicodin 1tab q6 hr, prn 3. Unwitnessed fall/rhabdomyolysis -CPK trending down-461 2 days back -Holding statin for muscle injury -Physical therapy evaluation for regaining strength -Patient needs a new walker, reports a previous walker was not functioning properly. -Plan for Safe discharge/STR placement -Large bruise over Left leg, below knee. RN thinks swelling has been increasing in size since admission. X-ray shows hematoma/soft tissue edema likely secondary to fall. Appy ice PRN and keep leg elevated when in bed or sitting. 4. Elevated troponins: Likely demand ischemia -Troponins trended down -ACS ruled out with negative troponins and EKG -Echocardiogram shows EF of more than 60%, no wall motion abnormalities, stage I diastolic dysfunction. 5. History of MS -No neurological deficits -Continue baclofen and gabapentin as needed for muscle spasm and neuropathic pain -Continue merbetriq for neurogenic bladder; Vit A&D for incontinence rash -Dr. Ga in [place] is patient's MS doctor; she will follow with him after discharge 6. Multiple blisters opened/fluid-filled over the body ? [place] -Patient reports the blisters are secondary to overheating in her apartment. -Continue local wound care to multiple blisters -Social work consult given unclear etiology of the blisters. Evaluation of home situation required. 7. History of left breast cancer status post mastectomy and radiation/currently on hormonal therapy -Continue anastrozole -Courtsey call to Dr Patterson patient's radiation oncologist Heart healthy diet Full code Mild pain pathway Problem List: 1. Cellulitis 2. UTI (urinary tract infection) 3. Rhabdomyolysis 4. Fall 5. Right arm pain Pain Ratin Pain Location: Right arm Pain Goal: Pain 4 or less Pain Plan: Gabapentin, baclofen, tylenol, ultram Tomorrow's Labs & Rationales: CBC..INFECTION GUSTAVO HDZ,GAYVANDANACHETNA 01/06/17 1342: Attending MD Review Statement Attending Statement Attending MD Statement: examined this patient, discuss w/resident/PA/MOTION PICTURE PROJECTIONIST, agreed w/resident/PA/MOTION PICTURE PROJECTIONIST, reviewed EMR data (avail), discussed with nursing, discussed with case mgmt, amended to note Attending Assessment/Plan: Patient seen and examined. Resting comfortably and not in any acute distress. Since changing antibiotic therapy over the weekend she has been afebrile and remains hemodynamically stable. On examination, right upper extremity is swollen particularly in the forearm. There is an open area over the triceps muscle currently covered with dressing. According to the patient and nursing staff swelling has improved significantly. She is able to flex her elbow. She had bullae collection over the anterior aspect of both thighs. These have currently open up. Recommendations: -Continue current course of antibiotics intravenously. -Case discussed with the ID service. Recommendations are to continue conservative management with antibiotics and hold off any surgical intervention for now. -Mobilize patient as tolerated. -High elevated troponins are likely due to her rhabdomyolysis and not demand ischemia. No further ischemic workup is recommended by the cardiology service. -Her anemia is chronic. Hemoglobin levels are stable.
[2017-01-06 08:42] LABS: ABSOLUTE BASOPHIL COUNT 0 /CUMM (0.0-0.2); ABSOLUTE EOSINOPHIL COUNT 0.2 /CUMM (0.0-0.7); ABSOLUTE GRANULOCYTE CT 6.8 /CUMM (1.4-6.5); ABSOLUTE LYMPH COUNT 1.6 /CUMM (1.2-3.4); ABSOLUTE MONOCYTE COUNT 0.5 /CUMM (0.10-0.60); BASOPHIL % 0.4 % (0.0-2.0); EOSINOPHIL % 2.1 % (0-5); GRANULOCYTE % 74.3 % (42.2-75.2); MEAN CORPUSCULAR HGB 28.5 PG (27.0-31.0); MEAN CORPUSCULAR HGB CONC 32.9 G/DL (33.0-37.0); MEAN CORPUSCULAR VOLUME 86.5 FL (81.0-99.0); PLATELET COUNT 272 /CUMM (130-400); RBC DISTRIBUTION WIDTH 13.6 % (11.5-14.5); RED BLOOD CELL CT 3.35 /CUMM (4.20-5.40); WHITE BLOOD CELL COUNT 9.1 /CUMM (4.8-10.8)
--- NOTE | 2017-01-06 12:16 | PN- Infect Dx ---
Subjective Subjective: Afebrile. She feels overall improved. Objective Last 24 Hrs of Vital Signs/I&O Vital Signs Date Time Temp Pulse Resp B/P Pulse O2 O2 Flow FiO2 Ox Delivery Rate 01/06 0600 76 18 112/70 96 Room Air 01/05 2246 98.5 85 18 120/60 95 Room Air 01/05 1520 98.5 75 20 120/60 95 Intake & Output 01/06 1600 01/06 0800 01/06 0000 Intake Total 170 400 Output Total 200 350 450 Balance -200 -180 -50 Intake, IV 50 Intake, Oral 120 400 Number 0 Bowel Movements Output, Urine 200 350 450 Physical Exam Other Physical Findings: She appears comfortable in no acute distress Lungs crackles at the right base Heart regular rhythm with no murmur Back mild right CVA tenderness persists Extremities decreased swelling and induration of the right upper extremity, mildly tender to palpation, with good range of motion of the right elbow Results Last 24 Hours of Lab Results: Laboratory Tests 01/06 0700 Hematology CBC w Diff NO MAN DIFF REQ WBC (4.8 - 10.8 /CUMM) 9.1 RBC (4.20 - 5.40 /CUMM) 3.35 L Hgb (12.0 - 16.0 G/DL) 9.5 L Hct (37 - 47 %) 29.0 L MCV (81.0 - 99.0 FL) 86.5 MCH (27.0 - 31.0 PG) 28.5 RDW (11.5 - 14.5 %) 13.6 Plt Count (130 - 400 /CUMM) 272 MPV (7.4 - 10.4 FL) 8.0 Gran % (42.2 - 75.2 %) 74.3 Lymphocytes % (20.5 - 51.1 %) 17.6 L Monocytes % (1.7 - 9.3 %) 5.6 Eosinophils % (0 - 5 %) 2.1 Basophils % (0.0 - 2.0 %) 0.4 Absolute Granulocytes (1.4 - 6.5 /CUMM) 6.8 H Absolute Lymphocytes (1.2 - 3.4 /CUMM) 1.6 Absolute Monocytes (0.10 - 0.60 /CUMM) 0.5 Absolute Eosinophils (0.0 - 0.7 /CUMM) 0.2 Absolute Basophils (0.0 - 0.2 /CUMM) 0 PUBS MCHC (33.0 - 37.0 G/DL) 32.9 L Last 24 Hours of Waqar Results: Blood cultures January 03 remain negative Assessment/Plan Impression: Overall improved with temperatures now normal and white blood cell count remaining normal on Cefazolin Day 7 of treatment for Escherichia coli sepsis, presumably of urologic origin, with right upper extremity inflammation overall improved. The etiology of this inflammation is unclear and appears to be most likely secondary to her trauma. The MRI suggests the development of abscesses and possible myonecrosis, but, with clinical improvement, do not feel this needs to be pursued. Suggestion: 1. Continue Cefazolin, with change to Keflex 500 mg po every 6 hours if continues to improve to complete a 14 day course of treatment
[2017-01-06 13:59] VITALS: BP 130/64
--- NOTE | 2017-01-06 17:17 | Patient Discharge Instructions ---
Discharge Instructions General Discharge Information You were seen/treated for: Sepsis of urological origin Right arm/elbow bursitis/cellulitis Unwitnessed fall/rhabdomyolysis Special Instructions: 1. Please f/u with your PCP within 1 week of discharge. 2.Please f/u with the ID doctor within 1 week of discharge. 3. Please finish the antibiotic course as instructed.i.e till 01/13/17 Diet Recommended Diet: Regular Activity Full Activity/No Limits: Yes (as tolerated) Acute Coronary Syndrome Inclusion Criteria At DC or during hospital stay patient has or had the following: ACS DIAGNOSIS No Discharge Core Measures Meds if any: Prescribed or Continued at Discharge Meds if any: NOT Prescribed or Continued at Discharge Congestive Heart Failure Inclusion Criteria At DC or during hospital stay patient has or had the following: CHF DIAGNOSIS No Discharge Core Measures Meds if any: Prescribed or Continued at Discharge Meds if any: NOT Prescribed or Continued at Discharge Cerebrovascular accident Inclusion Criteria At DC or during hospital stay patient has or had the following: CVA/TIA Diagnosis No Discharge Core Measures Meds if any: Prescribed or Continued at Discharge Meds if any: NOT Prescribed or Continued at Discharge Venous thromboembolism Inclusion Criteria VTE Diagnosis No VTE Type NONE VTE Confirmed by (Test) NONE Discharge Core Measures - Per Current guidelines, there needs to be overlap - treatment for the first 5 days of Warfarin therapy. - If discharged on Warfarin prior to 5 days of - overlap therapy, the patient will need to be - assessed for post discharge needs including - *Post discharge parental anticoagulation - *Warfarin and/or parental anticoagulation education - *Follow up date to check INR post discharge At least 5 days overlap therapy as Inpatient No Meds if any: Prescribed or Continued at Discharge Note: Overlap Therapy is Warfarin and Anticoagulant Meds if any: NOT Prescribed or Continued at Discharge
[2017-01-06] MEDS ORDERED: KEFLEX500 M1 PO ×2 (17:19→17:20)
--- NOTE | 2017-01-06 17:56 | Discharge Summary ---
Visit Information Visit Dates Admission Date: 12/29/16 Discharge Date: 01/08/17 Hospital Course Course Attending Physician: CHRIST HDZ,ANNEL Hamm Primary Care Physician: SILVINA ZAVALA MD Hospital Course: Patient is a 71-year-old female with past medical history of left breast cancer status post mastectomy currently on an anastrozole, MS, osteoarthritis, hyperlipidemia, status post left knee replacement who was brought into the ED by her son for the evaluation of a fall and weakness apparently mechanical. Pertinent labs showed white count of 26.2 with 14 bands, anion gap of 17, lactic acid 3.8, AST 133, AST 53, creatinine kinase 9679, troponin 0.14, TSH 0.122, normal free T4. EKG: Regular rate and rhythm, 81 bpm, left axis deviation, left ventricular hypertrophy, nonspecific T-wave changes. Cervical spine CT, head CT, maxillofacial CT were negative for any fractures. 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 Patient was treated in the hospital for: 1.Sepsis of urological origin Vs sepsis from Rt olecranon bursitis/cellulitis : Initially sepsis was thought to be of urological origin is UA was dirty and patient was growing gram-negative rods in the urine. No urological complaints. Patient has a neurogenic bladder and is on merbetriq. She was started on IV ceftriaxone pending identification of the bug. Urine cultures and blood cultures were positive for Escherichia coli sensitive to the ceftriaxone. However the patient kept on spiking fevers on the antibiotic and she was noted to have swelling of her right elbow/ olecranon BURSA and the antibiotics were changed to IV cefazolin. MRI of the arm showed possible subcutaneous fluid collectionfluid collection measuring 2.2 x 0.8 x 1.5 cm and edema and enhancement of the underlying triceps muscle and some of the muscles of the extensor compartment concerning for infection/myositis .ID was on board. Patient improved with change of antibiotics to IV cefazolin. IV Tylenol was continued for the Peter and po tramadol for pain control. 2. Right arm/elbow questionable bursitis/cellulitis: Patient had a swelling of her right elbow secondary to the fall x-ray of the lumbar was done to rule out necrotizing fasciitis. MRI of the elbow showed possible subcutaneous fluid collectionfluid collection measuring 2.2 x 0.8 x 1.5 cm and edema and enhancement of the underlying triceps muscle and some of the muscles of the extensor compartment concerning for infection/myositis. Surgeon felt that this was soft tissue lesion with edema and and there is no drainable abscess/fluid collection. So no drainage was planned drainage. Arm swelling improved with continued elevation and warm soaks to the right forearm/elbow. Pain was controlled with Vicodin 1tab q6 hr, prn. 3. Unwitnessed fall/rhabdomyolysis: Patient fell down at home and was on the floor for ten and half hours. CPK improved with aggressive IV hydration.statin was held for muscle injury. Physical therapy worked with the patient to begin strength. Patient had multiple bruises over her arms and legs and blisters over her skin. She had a large bruise over the left leg below the knee. X-ray shows hematoma/soft tissue edema likely secondary to fall. Injuries improved with ice application and leg elevation. Patient was discharged to [facility] for regaining strength. 4. Elevated troponins: Likely demand ischemia: Troponins were elevated likely secondary to rhabdomyolysis versus demand ischemia. They've trended down eventually. ACS ruled out with negative troponins and EKG. Echocardiogram shows EF of more than 60%, no wall motion abnormalities, stage I diastolic dysfunction. 5. History of MS: No neurological deficits. She was Continued on baclofen and gabapentin as needed for muscle spasm and neuropathic pain. Continued on merbetriq for neurogenic bladder; Vit A&D for incontinence rash. Dr. Ga in [place] is patient's MS doctor; she will follow with him after discharge 6. Multiple blisters opened/fluid-filled over the body ? [place] Patient reports the blisters are secondary to overheating in her apartment. Continued local wound care to multiple blisters. Social work consult worked on plscing her safely to [facility]. 7. History of left breast cancer status post mastectomy and radiation/currently on hormonal therapy: Continued on anastrozole. Courtsey call to Dr Patterson patient 's radiation oncologist was placed. Heart healthy diet Full code Mild pain pathway Allergies: Coded Allergies: NO KNOWN ALLERGIES (02/17/13) Disposition Summary Disposition Principal Diagnosis: Sepsis of urological origin Additional Diagnosis: Right arm/elbow bursitis/cellulitis Discharge Disposition: SNF Discharge Instructions General Discharge Information Code Status: Full Code Patient's Diet: Regular diet Patient's Activity: As tolerated Follow-Up Instructions/Appts: 1. Please f/u with your PCP within 1 week of discharge. 2.Please f/u with the ID doctor within 1 week of discharge. 3. Please finish the antibiotic course as instructed. Medications at Discharge Discharge Medications: Continue taking these medications: Gabapentin (Gabapentin) 100 MG CAPSULE 1 Capsule ORAL THREE TIMES DAILY as needed for PAIN Qty = 120 Comments: Last Taken: 12/30/16 Time: 7:00 PM Atorvastatin Calcium (Atorvastatin Calcium) 40 MG TABLET 1 Tablet ORAL DAILY Comments: DID NOT RECEIVE WHILE IN HOSPITAL Clemastine Fumarate (Clemastine Fumarate) 2.68 MG TABLET 1 Tablet ORAL DAILY NEEDED as needed for ALLERGIES Comments: DID NOT RECEIVE WHILE IN HOSPITAL Cyanocobalamin (Vitamin B-12) 1,000 MCG TABLET 2 Tablet ORAL DAILY Comments: DID NOT RECEIVE WHILE IN HOSPITAL Baclofen (Baclofen) 20 MG TABLET 1 Tablet ORAL TWICE DAILY Qty = 120 Comments: DID NOT RECEIVE WHILE IN HOSPITAL Baclofen (Baclofen) 10 MG TABLET 1 Tablet ORAL DAILY NEEDED as needed for SPASMS Comments: Last Taken: 01/07/17 Time: 10:30 PM Interferon Beta-1a (Avonex) 30 MCG/0.5 ML SYRINGEKIT 1 Inj EVERY FRIDAY Qty = 3 Comments: DID NOT RECEIVE WHILE IN HOSPITAL Glucosamine Sulfate (Glucosamine Sulfate) (Unknown Strength) CAPSULE Unknown Dose ORAL DAILY Comments: DID NOT RECEIVE WHILE IN HOSPITAL Calcium Carbonate/Vitamin D3 (Calcium + Vitamin D Tablet) 600 MG-200 TABLET 1 Tablet ORAL TWICE DAILY Comments: Last Taken: 01/08/17 Time: 10:00 AM Pyridoxine HCl (Pyridoxine HCl) 500 MG TABLET 2 Tablet ORAL DAILY Comments: DID NOT RECEIVE WHILE IN HOSPITAL Ubidecarenone (Co Q-10) 100 MG CAPSULE 1 Capsule ORAL DAILY Comments: DID NOT RECEIVE WHILE IN HOSPITAL Ascorbic Acid (Vitamin C) 1,000 MG TABLET 1 Tablet ORAL TWICE DAILY Comments: DID NOT RECEIVE WHILE IN HOSPITAL Emollient Combination No.10 (Biafine) 45 GM EMULSN.G. 1 Application On the skin DAILY Comments: DID NOT RECEIVE WHILE IN HOSPITAL Diclofenac Sodium (Voltaren) 1 % GEL..GRAM. 1 Gram On the skin 4 TIMES A DAY as needed for KNEE PAIN Instructions: apply to affected area(s) Comments: DID NOT RECEIVE WHILE IN HOSPITAL Timolol Maleate (Timolol Maleate) 0.5 % DROPS 1 Drop In the eye TWICE DAILY Qty = 5 Comments: Last Taken: 01/08/17 Time: 10:00 AM Latanoprost (Xalatan) 0.005 % DROPS 1 Drop In the eye Every night Comments: DID NOT RECEIVE WHILE IN HOSPITAL Anastrozole (Anastrozole) 1 MG TABLET 1 Tablet ORAL DAILY Qty = 90 Comments: Last Taken: 01/08/17 Time: 9:45 AM Levothyroxine Sodium (Synthroid) 75 MCG TABLET 1 Tablet ORAL DAILY BEFORE BREAKFAST Qty = 90 Comments: Last Taken: 01/08/17 Time: 6:00 AM Paroxetine HCl (Paxil) 20 MG TABLET 1 Tablet ORAL DAILY Comments: Last Taken: 01/08/17 Time: 10:00 AM Alprazolam (Alprazolam) 0.5 MG TABLET 1 Tablet ORAL 4 times daily as needed as needed for ANXIETY Qty = 120 Comments: Last Taken: 01/08/17 Time: 10:45 AM Quazepam (Tetherow) 15 MG TABLET 1 Tablet ORAL Every night as needed as needed for SLEEP Comments: DID NOT RECEIVE WHILE IN HOSPITAL Hydrocodone/Acetaminophen (Vicodin 5-300 MG Tablet) 5 MG-300 MG TABLET 1 Tablet ORAL EVERY 4 HOURS NEEDED as needed for PAIN Comments: DID NOT RECEIVE WHILE IN HOSPITAL Prochlorperazine Maleate (Compazine) 10 MG TABLET 1 Tablet ORAL EVERY 4 HOURS NEEDED as needed for NAUSEA/VOMITING Comments: DID NOT RECEIVE WHILE IN HOSPITAL Start taking the following new medications: Cephalexin (Keflex) 500 MG CAPSULE 1 Capsule ORAL EVERY SIX HOURS Days = 5 No Refills Instructions: please continue antibiotic till 01/13/17 Comments: Last Taken: 01/08/17 Time: 12:00 PM Copies To: CELIA CHEN M.D; SALLY HDZ,SILVINA Quintana Attending Review Statement Documenting Attending: CELIA CHEN M.D Other Findings: Patient is medically stable to be discharged today.
[2017-01-06 23:31] VITALS: BP 122/70
[2017-01-07 07:26] VITALS: BP 130/72
[2017-01-07 08:33] LABS: ABSOLUTE BASOPHIL COUNT 0 /CUMM (0.0-0.2); ABSOLUTE EOSINOPHIL COUNT 0.1 /CUMM (0.0-0.7); ABSOLUTE GRANULOCYTE CT 7.3 /CUMM (1.4-6.5); ABSOLUTE LYMPH COUNT 1.3 /CUMM (1.2-3.4); ABSOLUTE MONOCYTE COUNT 0.5 /CUMM (0.10-0.60); BASOPHIL % 0.4 % (0.0-2.0); EOSINOPHIL % 1.4 % (0-5); GRANULOCYTE % 78.4 % (42.2-75.2); HEMATOCRIT 30.3 % (37-47); MEAN CORPUSCULAR HGB 28.7 PG (27.0-31.0); MEAN CORPUSCULAR HGB CONC 33.1 G/DL (33.0-37.0); MEAN CORPUSCULAR VOLUME 86.8 FL (81.0-99.0); MEAN PLATELET VOLUME 7.9 FL (7.4-10.4); PLATELET COUNT 318 /CUMM (130-400); RBC DISTRIBUTION WIDTH 13.5 % (11.5-14.5); RED BLOOD CELL CT 3.49 /CUMM (4.20-5.40); WHITE BLOOD CELL COUNT 9.3 /CUMM (4.8-10.8)
--- NOTE | 2017-01-07 09:45 | PN- Att Addend ---
Attending Addendum Attending Brief Note Patient seen and examined. Resting comfortably and not in acute distress. No issues overnight reported by nursing staff. Patient denies any pain currently. No new complaints. Vital Signs Date Time Temp Pulse Resp B/P Pulse O2 O2 Flow FiO2 Ox Delivery Rate 01/07 0726 97.8 78 20 130/72 94 Room Air 01/06 2331 97.5 74 20 122/70 95 01/06 1359 98.3 70 20 130/64 95 Room Air Gen. appearance: Not in any distress Heart: S1-S2 regular Lungs: Adequate entry bilaterally, clear to auscultation Abdomen: Soft and nontender Extremities intact dressing over right upper extremity. Mild swelling of forearm. Intact dressing over Bilateral thigh wounds. Problems: 1. Sepsis secondary to Escherichia coli bacteremia and urinary tract infection 2. Right upper extremity cellulitis 3. Rhabdomyolysis following fall. 4. Elevated troponins nightly secondary to rhabdomyolysis 5. Multiple sclerosis Plan: -Patient continues to improve clinically. Continue IV cefazolin today and then switch to Keflex started tomorrow. Complete 14 days of antibiotic therapy total as recommended by the ID service. -Mobilize patient as tolerated. -Anticipate discharge tomorrow.
--- NOTE | 2017-01-07 11:02 | PN- Housestaff ---
See Addendum Subjective Follow-up For: Urosepsi secondary to e coli Elbow bursitis Subjective: Patient has no complaints. Remained afebrile overnight Review of Systems Constitutional: Reports: see HPI. Objective Last 24 Hrs of Vital Signs/I&O Vital Signs Date Time Temp Pulse Resp B/P Pulse O2 O2 Flow FiO2 Ox Delivery Rate 01/07 0726 97.8 78 20 130/72 94 Room Air 01/06 2331 97.5 74 20 122/70 95 01/06 1359 98.3 70 20 130/64 95 Room Air Intake & Output 01/07 1600 01/07 0800 01/07 0000 Intake Total 250 100 Output Total 100 400 Balance 150 -300 Intake, IV 150 Intake, Oral 100 100 Number 1 Bowel Movements Output, Urine 100 400 Physical Exam General Appearance: Alert, Oriented X3, Cooperative Skin: No Rashes, No Breakdown HEENT: Atraumatic, PERRLA Neck: Supple, No JVD, No thryomegaly Lymphatic: Axillary nl, Cervical nl Cardiovascular: Regular Rate, Normal S1, Normal S2 Lungs: Clear to Auscultation, Normal Air Movement Abdomen: Soft, No Tenderness Current Medications: Current Medications Sig/Francy Start time Last Medication Dose Route Stop Time Status Admin Acetaminophen 1,000 MG Q6P PRN 01/03 0930 AC 01/04 N/A 1 UNIT IV 0651 Acetaminophen/ 1 TAB Q6P PRN 01/04 1030 AC Hydrocodone Bitart PO Alprazolam 0.5 MG Q6-PRN PRN 01/06 2315 AC 01/07 PO 01/13 2314 0848 Alprazolam 0.5 MG Q6-PRN PRN 12/30 1415 DC 01/06 PO 01/06 1414 0812 Anastrozole 1 MG DAILY 12/29 1533 AC 01/07 PO 0848 Baclofen 10 MG DAILY NEEDED PRN 12/29 1545 AC PO Bisacodyl 10 MG DAILY NEEDED PRN 01/06 1045 AC 01/06 FL 2341 Cefazolin Sodium 2 GM IQ8 01/04 0000 DC 01/06 N/A 1 UNIT IV 01/07 0100 2320 Cephalexin 500 MG Q6 01/07 0600 AC 01/07 PO 0609 Cholecalciferol 1,000 IU DAILY 01/05 1057 AC 01/07 PO 0847 Enoxaparin Sodium 40 MG DAILY 12/29 1518 AC 01/07 SC 0847 Famotidine 20 MG DAILY 01/04 1025 AC 01/07 PO 0847 Gabapentin 100 MG TID PRN 12/29 1545 AC 12/30 PO 1828 Levothyroxine Sodium 0.05 MG DAILY AC 12/30 0700 AC 01/07 PO 0608 Mirabegron 50 MG DAILY 12/29 1600 AC 01/07 PO 0848 Paroxetine HCl 20 MG DAILY 12/30 1000 AC 01/07 PO 0848 Patient Medication 1 ED .STK-MED ONE 01/06 1413 SD Teaching ED 01/06 1414 Patient Own See Dose QTHURS 01/09 1000 AC Medication Insts (1) IM Patient Own See Dose BID 01/06 2000 AC 01/07 Medication Insts (2) OPH 0849 Timolol Maleate 1 GTT BID 12/29 1538 AC 01/07 OPH 0849 Tramadol HCl 50 MG Q8 PRN 01/02 1115 AC 01/07 PO 0855 Vitamin A/Vitamin D 1 EMIR BID 01/05 1029 AC 01/07 TOP 0849 Dose Instructions: (1)Patient Own Medication: AVENOX 30 MCG/0.5 ML INJECT 30 MCG SYRINGE IM EVERY FRIDAY (2)Patient Own Medication: PROLENSA 0.07%EYE DROPS 1 DROP IN RIGHT EYE BID Last 24 Hrs of Lab/Waqar Results Last 24 Hrs of Labs/Mics: Laboratory Tests 01/07/17 0710: CBC w Diff NO MAN DIFF REQ, RBC 3.49 L, MCV 86.8, MCH 28.7, RDW 13.5, MPV 7.9, Gran % 78.4 H, Lymphocytes % 14.3 L, Monocytes % 5.5, Eosinophils % 1.4, Basophils % 0.4, Absolute Granulocytes 7.3 H, Absolute Lymphocytes 1.3, Absolute Monocytes 0.5, Absolute Eosinophils 0.1, Absolute Basophils 0, PUBS MCHC 33.1 Assessment/Plan Assessment: Patient is a 71-year-old female with past medical history of left breast cancer status post mastectomy currently on an anastrozole, MS, osteoarthritis, hyperlipidemia, status post left knee replacement who was brought into the ED by her son for the evaluation of a fall and weakness apparently mechanical. 1. Sepsis secondary to urological region, resolved 2. UTI with Escherichia coli 3. Right elbow bursitis/cellulitis resolved 4. History breast cancer status post mastectomy 5. History of multiple sclerosis and exacerbation resolved 6. Hyperlipidemia 7. Status post left knee replacement 8. Elevated troponin is likely demand ischemia Plan plan -The patient remained afebrile -Continue with by mouth antibiotics Keflex and complete a total of 14 days antibiotic therapy. -Continue with all other medications -Possible discharge in the morning -DVT prophylaxis with all times -Patient is full code Problem List: 1. Right arm pain 2. Cellulitis Pain Ratin Pain Location: right elbow Pain Goal: Remain pain free Pain Plan: po tylenola as needed. Tomorrow's Labs & Rationales: none
[2017-01-07 13:49] VITALS: BP 140/70
[2017-01-07] MEDS ORDERED: KEFLEX500 M1 PO (19:40)
[2017-01-07 21:15] VITALS: BP 130/80
[2017-01-08 06:37] VITALS: BP 128/70
[2017-01-08 10:58] VITALS: BP 128/70
--- NOTE | 2017-01-08 12:36 | PN- Att Addend ---
Attending Addendum Attending Brief Note Patient seen and examined. Lying comfortably in bed and not in any distress. No issues overnight. She is alert and oriented 3 and conversing appropriately. She denies any pain. She been afebrile hemodynamically stable. Vital Signs Date Time Temp Pulse Resp B/P Pulse O2 O2 Flow FiO2 Ox Delivery Rate 01/08 1058 98.8 71 20 128/70 01/08 0637 98.8 71 20 128/70 93 Room Air 01/07 2115 96.8 60 20 130/80 97 Room Air 01/07 1349 98.6 70 20 140/70 96 Room Air Gen. appearance: Not in acute distress Heart: S1-S2 regular Lungs: Clear bilaterally Abdomen: Soft and nontender Extremities: No pedal edema Skin: The wounds on her right upper extremity and bilateral thighs as well as left shoulder are all healing appropriately. Problems: 1. Sepsis secondary to Escherichia coli bacteremia and urinary tract infection 2. Right upper extremity cellulitis 3. Rhabdomyolysis following fall. 4. Elevated troponins nightly secondary to rhabdomyolysis 5. Multiple sclerosis Recommendations: -She is medically stable to be discharged today. -[facility] due to her deconditioning. -She has been transitioned to Keflex and will continue to complete 14 days total of antibiotic therapy. -[facility] will [facility] at the [facility]
[2017-01-08 14:10] VITALS: BP 122/64
--- NOTE | 2017-01-08 14:43 | PN- Housestaff ---
Subjective Follow-up For: Urosepsis Bursitis of the right olecranon BURSA Rhabdomyolysis History of MS Subjective: Patient seen and examined today. She was switched to by mouth antibiotics. She has been doing well she is stable for discharge to [facility] for physical deconditioning. Patient denies any new complaints. No chest pain/difficulty breathing/abdominal pain/pain in the legs. Vitals and labs reviewed to be stable Review of Systems Constitutional: Reports: see HPI. Objective Last 24 Hrs of Vital Signs/I&O Vital Signs Date Time Temp Pulse Resp B/P Pulse O2 O2 Flow FiO2 Ox Delivery Rate 01/08 1410 98.6 74 18 122/64 96 Room Air 01/08 1058 98.8 71 20 128/70 01/08 0637 98.8 71 20 128/70 93 Room Air 01/07 2115 96.8 60 20 130/80 97 Room Air Intake & Output 01/08 1600 01/08 0800 01/08 0000 Intake Total 560 220 360 Output Total 880 280 6720 Balance 310 -130 -640 Intake, Oral 560 220 360 Number 0 Bowel Movements Output, Urine 357 062 7235 Physical Exam General Appearance: Alert, Oriented X3, Cooperative, No Acute Distress Skin: patient had a bandage wrapped over the right elbow HEENT: Atraumatic Neck: Supple Cardiovascular: Regular Rate, Normal S1, Normal S2 Lungs: Normal Air Movement Abdomen: Soft, No Tenderness, No Hepatospenomegaly Extremities: Normal Pulses Current Medications: Current Medications Sig/Francy Start time Last Medication Dose Route Stop Time Status Admin Acetaminophen 1,000 MG Q6P PRN 01/03 0930 AC 01/04 N/A 1 UNIT IV 0651 Acetaminophen/ 1 TAB Q6P PRN 01/04 1030 AC Hydrocodone Bitart PO Alprazolam 0.5 MG Q6-PRN PRN 01/06 2315 AC 01/08 PO 01/13 2314 1117 Anastrozole 1 MG DAILY 12/29 1533 AC 01/08 PO 0951 Baclofen 10 MG DAILY NEEDED PRN 12/29 1545 AC 01/07 PO 2228 Bisacodyl 10 MG DAILY NEEDED PRN 01/06 1045 AC 01/06 CT 2341 Cephalexin 500 MG Q6 01/07 0600 AC 01/08 PO 1258 Cholecalciferol 1,000 IU DAILY 01/05 1057 AC 01/08 PO 0951 Enoxaparin Sodium 40 MG DAILY 12/29 1518 AC 01/08 SC 0952 Famotidine 20 MG DAILY 01/04 1025 AC 01/08 PO 0951 Gabapentin 100 MG TID PRN 12/29 1545 AC 12/30 PO 1828 Levothyroxine Sodium 0.05 MG DAILY AC 12/30 0700 AC 01/08 PO 0555 Mirabegron 50 MG DAILY 12/29 1600 AC 01/08 PO 0951 Paroxetine HCl 20 MG DAILY 12/30 1000 AC 01/08 PO 0951 Patient Medication 1 ED .STK-MED ONE 01/08 1338 DC Teaching ED 01/08 1339 Patient Own See Dose QTHURS 01/09 1000 AC Medication Insts (1) IM Patient Own See Dose BID 01/06 2000 AC 01/08 Medication Insts (2) OPH 0958 Timolol Maleate 1 GTT BID 12/29 1538 AC 01/08 OPH 0951 Tramadol HCl 50 MG Q8 PRN 01/02 1115 AC 01/08 PO 0604 Vitamin A/Vitamin D 1 EMIR BID 01/05 1029 AC 01/08 TOP 0951 Dose Instructions: (1)Patient Own Medication: AVENOX 30 MCG/0.5 ML INJECT 30 MCG SYRINGE IM EVERY FRIDAY (2)Patient Own Medication: PROLENSA 0.07%EYE DROPS 1 DROP IN RIGHT EYE BID Assessment/Plan Assessment: Patient is a 71-year-old female with past medical history of left breast cancer status post mastectomy currently on an anastrozole, MS, osteoarthritis, hyperlipidemia, status post left knee replacement who was brought into the ED by her son for the evaluation of a fall and weakness apparently mechanical. 1. Sepsis secondary to urological region v/s right elbow bursitis. Patient had a UTI which was positive for Escherichia coli she was initially started on ceftriaxone but she continued to have leukocytosis. It was found that she has right elbow bursitis and antibiotics were switched to IV cefazolin. Yesterday she was switched to by mouth antibiotics and the plan is she will be discharged on by mouth antibiotics for a total of 14 days 2. History breast cancer status post mastectomy she is on anastrozole 3. Unwitnessed fall/rhabdomyolysis: Patient fell down at home and was on the floor for ten and half hours. CPK improved with aggressive IV hydration.statin was held for muscle injury. Physical therapy worked with the patient to begin strength. Patient had multiple bruises over her arms and legs and blisters over her skin. She had a large bruise over the left leg below the knee. X-ray shows hematoma/soft tissue edema likely secondary to fall. Injuries improved with ice application and leg elevation. Patient will be discharged to [facility] for physical conditioning. 4. Elevated troponins: Likely demand ischemia: Troponins were elevated likely secondary to rhabdomyolysis versus demand ischemia. They've trended down eventually. ACS ruled out with negative troponins and EKG. Echocardiogram shows EF of more than 60%, no wall motion abnormalities, stage I diastolic dysfunction. 5. History of MS: No neurological deficits. She was Continued on baclofen and gabapentin as needed for muscle spasm and neuropathic pain. Continued on merbetriq for neurogenic bladder; Vit A&D for incontinence rash. Dr. Ga in [place] is patient's MS doctor; she will follow with him after discharge 6. Multiple blisters opened/fluid-filled over the body ? [place] Patient reports the blisters are secondary to overheating in her apartment. Continued local wound care to multiple blisters. Social work consult worked on plscing her safely to [facility]. 7. History of left breast cancer status post mastectomy and radiation/currently on hormonal therapy: Continued on anastrozole. Courtsey call to Dr Patterson patient 's radiation oncologist was placed. Problem List: 1. Right arm pain Pain Ratin Pain Location: n/a Pain Goal: Pain 4 or less Pain Plan: tylenol prn for pain Tomorrow's Labs & Rationales: none
--- NOTE | 2017-01-08 15:04 | PN- Infect Dx ---
Subjective Subjective: Afebrile without complaints Objective Last 24 Hrs of Vital Signs/I&O Vital Signs Date Time Temp Pulse Resp B/P Pulse O2 O2 Flow FiO2 Ox Delivery Rate 01/08 1410 98.6 74 18 122/64 96 Room Air 01/08 1058 98.8 71 20 128/70 01/08 0637 98.8 71 20 128/70 93 Room Air 01/07 2115 96.8 60 20 130/80 97 Room Air Intake & Output 01/08 1600 01/08 0800 01/08 0000 Intake Total 560 220 360 Output Total 924 451 4340 Balance 310 -130 -640 Intake, Oral 560 220 360 Number 0 Bowel Movements Output, Urine 244 746 7932 Physical Exam Other Physical Findings: She appears comfortable in no acute distress Extremities right upper extremity with no residual inflammation and with normal range of motion of the right elbow Results Last 24 Hours of Lab Results: Laboratory Tests 01/07 0710 Hematology CBC w Diff NO MAN DIFF REQ WBC (4.8 - 10.8 /CUMM) 9.3 RBC (4.20 - 5.40 /CUMM) 3.49 L Hgb (12.0 - 16.0 G/DL) 10.0 L Hct (37 - 47 %) 30.3 L MCV (81.0 - 99.0 FL) 86.8 MCH (27.0 - 31.0 PG) 28.7 RDW (11.5 - 14.5 %) 13.5 Plt Count (130 - 400 /CUMM) 318 MPV (7.4 - 10.4 FL) 7.9 Gran % (42.2 - 75.2 %) 78.4 H Lymphocytes % (20.5 - 51.1 %) 14.3 L Monocytes % (1.7 - 9.3 %) 5.5 Eosinophils % (0 - 5 %) 1.4 Basophils % (0.0 - 2.0 %) 0.4 Absolute Granulocytes (1.4 - 6.5 /CUMM) 7.3 H Absolute Lymphocytes (1.2 - 3.4 /CUMM) 1.3 Absolute Monocytes (0.10 - 0.60 /CUMM) 0.5 Absolute Eosinophils (0.0 - 0.7 /CUMM) 0.1 Absolute Basophils (0.0 - 0.2 /CUMM) 0 PUBS MCHC (33.0 - 37.0 G/DL) 33.1 Last 24 Hours of Waqar Results: No recent cultures Assessment/Plan Impression: Doing well with temperatures and white blood cell count remaining normanow on Keflex, Day 9 of treatment for Escherichia coli sepsis, presumably of urologic origin, with right upper extremity inflammation resolved. Suggestion: 1. Continue Keflex for 5 more days to complete a 14 day course of treatment
== END 2017-01-08 17:43 | DRG 872 ==
LOC: ENRESERVTM → ENRESERVDT → ERH 13:10 → ENPENDDIS 15:30 → 2NA 15:30 → 1NO 15:30 → ERHI 15:30 → 1NO 17:17 → 2NA 12-31 19:58
PROVIDERS: Physician Assistant; Student in an Organized Health Care Education/Training Program; ADMIT Internal Medicine
DX: A41.50 Gram-negative sepsis, unspecified (principal); E87.2 Acidosis; I24.8 Other forms of acute ischemic heart disease; C50.912 Malignant neoplasm of unspecified site of left female breast; G35 Multiple sclerosis; N31.9 Neuromuscular dysfunction of bladder, unspecified; N39.0 Urinary tract infection, site not specified; B96.20 Unspecified Escherichia coli [E. coli] as the cause of diseases classified elsewhere; E86.0 Dehydration; R23.8 Other skin changes; M71.121 Other infective bursitis, right elbow; E78.5 Hyperlipidemia, unspecified; T79.6XXA Traumatic ischemia of muscle, initial encounter; W18.30XA Fall on same level, unspecified, initial encounter; M19.90 Unspecified osteoarthritis, unspecified site; S50.11XA Contusion of right forearm, initial encounter; T14.8 Other injury of unspecified body region; T30.0 Burn of unspecified body region, unspecified degree
CPT/HCPCS: 1NSP; 2NASP; 75647; 36415; 73060-RT; 73070-RT; 73110-RT; 73590-LT; 74177; 81001; 82436; 87040; 87086; 93005; 93010; 93306; 97110-GO; 97116-GO; 97161-GP; 97530-GO; A9579; J0131; J0690; J0696; J1650

== ENCOUNTER 2017-01-30 13:21 | Emergency (ER) | payer OTHER, MEDICARE ==
[~2017-01-30] VITALS: Ht 176.5 cm; Wt 80.3 kg
[~2017-01-30 13:21] MED LIST: ALPRAZOLAM0.5 M4 PO; ANASTROZOLE1 M1 PO; ATORVASTATIN CA40 M1 PO; AVONEX30 MCG/0.1; BACLOFEN10 M1 PO; BACLOFEN20 M1 PO; BIAFINE45 GM TOP; CALCIUM + VITA1 EAC1 PO; CLEMASTINE FU2.68 MG PO; CO Q-10100 MG PO; COMPAZINE10 M1 PO; GABAPENTIN100 M2 PO; GLUCOSAMINE SU PO; KEFLEX500 M1 PO; PAXIL20 M1 PO; PYRIDOXINE HCL500 MG PO; SYNTHROID50 MCG PO; TIMOLOL MALEATE5 M4 OPH; VICODIN 5-3001 EACH PO; VITAMIN B-121000 MC3 PO; VITAMIN C500 M6 PO; VOLTAREN100 GM TOP; XALATAN2.5 ML OPH; [UNRECOGNIZED DRUG - OTHER] PO
[2017-01-30] MEDS ORDERED: TRAMADOL HCL50 M1 PO (14:28)
[2017-01-30] MEDS ORDERED: VITAMIN B-122000 MC1 PO (14:29)
[2017-01-30] MEDS ORDERED: MYRBETRIQ25 M1 PO (14:31)
[2017-01-30] MEDS ORDERED: COLACE100 M1 PO (14:32)
[2017-01-30] MEDS ORDERED: PROLENSA3 ML OD (14:33)
[2017-01-30] MEDS ORDERED: SENNA8.6 M3 PO (14:35)
[2017-01-30] MEDS ORDERED: LOSARTAN POTAS100 M1 PO (14:36)
[2017-01-30] MEDS ORDERED: ACIDOPHILUS1 EACH PO (14:37)
[2017-01-30] MEDS ORDERED: NORVASC5 M1 PO (14:38)
[2017-01-30] MEDS ORDERED: BACTRIM DS TAB1 EACH PO (14:39)
--- NOTE | 2017-01-30 14:43 | ED UPPER/LOWER EXTREMITY COMPL ---
History of Present Illness General Chief Complaint: Upper Extremity Problem Stated Complaint: SWOLLEN RT ARM Source: patient Exam Limitations: no limitations Allergies Coded Allergies: NO KNOWN ALLERGIES (02/17/13) Reconcile Medications Alprazolam 0.5 MG TABLET 1 TAB PO 4XDP PRN ANXIETY (Reported) Amlodipine Besylate (Norvasc) 5 MG TABLET 1 TAB PO 1700 HEART (Reported) Anastrozole 1 MG TABLET 1 TAB PO DAILY CANCER (Reported) Ascorbate Calcium (Vitamin C) 500 MG TABLET 1 TAB PO 4 TIMES/DAY SUPPLEMENT ( Reported) Atorvastatin Calcium 40 MG TABLET 1 TAB PO DAILY CHOLESTEROL (Reported) Baclofen 20 MG TABLET 1 TAB PO BID SPASMS (Reported) Bromfenac Sodium (Prolensa) 0.07 % DROPS 1 DROP OD BID EYE (Reported) Calcium Carbonate/Vitamin D3 (Calcium + Vitamin D Tablet) 600 MG-200 TABLET 1 TAB PO BID SUPPLEMENT (Reported) Cyanocobalamin (Vitamin B-12) (Vitamin B-12) 2,000 MCG TABLET 1 TAB PO DAILY SUPPLEMENT (Reported) Diclofenac Sodium (Voltaren) 1 % GEL..GRAM. 1 GM TOP 4 TIMES/DAY PRN KNEE PAIN (Reported) apply to affected area(s) Docusate Sodium (Colace) 100 MG CAPSULE 2 CAP PO DAILY GI (Reported) Gabapentin 100 MG CAPSULE 1 CAP PO TID PRN PAIN (Reported) Interferon Beta-1a (Avonex) 30 MCG/0.5 ML SYRINGEKIT 1 INJ QWED UNKNOWN ( Reported) Lactobacillus Acidophilus (Acidophilus) 1 EACH CAPSULE 1 CAP PO BID GI ( Reported) Latanoprost (Xalatan) 0.005 % DROPS 1 GTT OPH QPM EYE (Reported) Levothyroxine Sodium (Synthroid) 50 MCG TABLET 1 TAB PO DAILY AC THYROID ( Reported) Losartan Potassium 100 MG TABLET 1 TAB PO DAILY HEART (Reported) Mirabegron (Myrbetriq) 25 MG TAB.ER.24H 1 TAB PO DAILY BLADDER (Reported) Paroxetine HCl (Paxil) 20 MG TABLET 1 TAB PO DAILY MENTAL HEALTH (Reported) Pyridoxine HCl 500 MG TABLET 1 TAB PO BID SUPPLEMENT (Reported) Sennosides (Senna) 8.6 MG TABLET 1 TAB PO QPM SUPPLEMENT (Reported) Sulfamethoxazole/Trimethoprim (Bactrim Ds Tablet) 800 MG-160 MG TABLET 1 TAB PO BID ANTIBIOTIC, INFECTION (Reported) Timolol Maleate 0.5 % DROPS 1 GTT OPH BID EYE (Reported) Tramadol HCl 50 MG TABLET 1 TAB PO DAILY BEFORE THERAPY (Reported) Ubidecarenone (Co Q-10) 100 MG CAPSULE 1 CAP PO DAILY SUPPLEMENT (Reported) Triage Note: [facility] FROM [facility], PT SENT TO ED FOR FURTHER EVAL OF RIGHT UPPER ARM SWELLING S/P FALL AND TEMPS, PT RECENTLY DX WITH UTI AND RUE CELLULITIS WAS ON CLINDAMYCIN, SWITCHED TO BACTRIM YESTERDAY, HAD NEGATIVE BLOOD CULTURES AND ULTRASOUND YESTERDAY. Triage Nurses Notes Reviewed? yes HPI: THIS PATIENT is a 71-year-old female with a past medical history including breast cancer who was brought into the emergency department today from [facility] for evaluation of cellulitis and possible abscess to her right forearm. The patient fell on December 29. She was diagnosed with cellulitis after that time and was on Cipro. She got switched to Bactrim yesterday. She also had an ultrasound yesterday showing abscess versus hematoma. DR. ÁNGEL PADILLANE the patient and requesting a surgical evaluation as well as evaluation by Dr. COOK. The patient is reporting that the area feels warm. She reported that it feels painful when the area is palpated. The pain gets up to an 8 out of 10, is throbbing, and nonradiating. She reported that she has been having fevers at the alf. The patient denied any chills, chest pain, difficulty breathing, abdominal pain, nausea, or vomiting. (SAMY SEPULVEDA,AMBROSE) Vital Signs & Intake/Output Vital Signs & Intake/Output Vital Signs Date Time Temp Pulse Resp B/P Pulse O2 O2 Flow FiO2 Ox Delivery Rate 01/30 1700 99.1 75 18 160/89 96 01/30 1322 96.5 78 18 158/90 96 Room Air ED Intake and Output 01/31 0000 01/30 1200 Intake Total Output Total Balance Patient 177 lb Weight Past History Travel History Traveled to [place] past 21 day No Medical History Any Pertinent Medical History? 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 No (SAMY SEPULVEDA,AMBROSE) Review of Systems Review of Systems Constitutional: Reports: see HPI. EENTM: Reports: no symptoms. Respiratory: Reports: no symptoms. Cardiovascular: Reports: no symptoms. Gastrointestinal/Abdominal: Reports: no symptoms. Genitourinary: Reports: no symptoms. Musculoskeletal: Reports: no symptoms. Skin: Reports: see HPI. Neurological/Psychological: Reports: no symptoms. All Other Systems: Reviewed and Negative (AMBROSE PABLO PA-C) Physical Exam Physical Exam General Appearance: well developed/nourished, no apparent distress, alert, awake Comments: Well-developed well-nourished person in no acute distress HEENT: Normal EENT exam, moist mucous membranes Neck: Supple with no lymphadenopathy Back: Normal inspection Cardiovascular: Regular rate and rhythm with no murmurs, rubs, or gallops Respiratory: Chest nontender. No respiratory distress. Breath sounds clear to auscultation bilaterally Right upper extremity: Area of erythema and raised induration to the proximal aspect of the forearm approximately 5 cm in greatest diameter with no fluctuance or drainage. Mild tenderness to palpation. Radial brachial pulses 2+ and strong. Capillary refill less than 2 seconds. Full range of motion of the elbow and wrist. Neuro: Alert oriented x3, cranial nerves II through XII grossly intact. Skin: No appreciable rash on exposed skin, skin is warm and dry. Psych: Mood and affect is normal, memory and judgment is normal. (SAMY SEPULVEDA,AMBROSE) Progress Differential Diagnosis: arterial insufficiency, cellulitis, CHF, compartment syndrome, contusion, dislocation, DVT, fracture, gout, septic arthritis, sprain, tendon injury Diagnostic Imaging: Viewed by Me: CT Scan, Ultrasound. Discussed w/RAD: CT Scan, Ultrasound. Radiology Impression: PATIENT: LOLY PEREZ PRESENT AGE: 71 PATIENT ACCOUNT NO: [id number] : 47 LOCATION: [facility] ORDERING PHYSICIAN: AMBROSE PABLO PA-C SERVICE DATE: 01/30/17 EXAM TYPE: CAT - CT HEAD WO IV CONTRAST EXAMINATION: CT HEAD WITHOUT CONTRAST CLINICAL INFORMATION: Fall. Evaluate for intracranial hemorrhage. COMPARISON: Head CT from 12/29/2016 TECHNIQUE: Contiguous axial imaging was performed from the skull base to vertex without intravenous administration of contrast. DLP: 672 mGy-cm FINDINGS: There are a few old, scattered areas of hypoattenuation within supratentorial white matter from chronic white matter ischemic changes and/or demyelination change. No acute intracranial hemorrhage, focal extra-axial fluid collection, mass effect or midline shift. The forbes-white matter differentiation is preserved. The ventricles, sulci and basilar cisterns are unremarkable. No acute findings within the posterior fossa. The calvarium is intact and the visualized paranasal sinuses, mastoid air cells and middle ear cavities are well aerated. Within the right orbit, a scleral band extends around the right globe. IMPRESSION: No acute intracranial pathology compared to 12/29/2016. DICTATED BY: ANNA MARIE GARNICA MD DATE/TIME DICTATED:01/30/171442 PHOTOGRAMMETRIC SURVEYOR:PIPER DATE/TIME TRANSCRIBED:01/30/171442 CONFIDENTIAL, DO NOT COPY WITHOUT APPROPRIATE AUTHORIZATION. <Electronically signed in Other Vendor System> SIGNED BY: ANNA MARIE GARNICA MD 01/30/17 1454, PATIENT: LOLY PEREZ PRESENT AGE: 71 PATIENT ACCOUNT NO: [id number] : 47 LOCATION: [facility] ORDERING PHYSICIAN: AMBROSE PABLO PA-C SERVICE DATE: 01/30/17 -1410 EXAM TYPE: US - US-UNILATERAL VENOUS DOPPLER EXAMINATION: US TRIPLEX UPPER EXTREMITY, RIGHT CLINICAL INFORMATION: Right upper extremity edema and swelling. COMPARISON: Right upper extremity ultrasound dated 01/03/2017. TECHNIQUE: Color- flow triplex imaging with spectral analysis and compression Doppler were performed on the right upper extremity. FINDINGS: The right internal jugular, innominate, subclavian, axillary, brachial, basilic, cephalic vein segments show normal flow and compressibility. No deep venous thrombosis is seen. In the lateral right upper forearm, there is a subcutaneous heterogeneously hypoechoic collection measuring 2.1 x 1.1 x 1.0 cm. IMPRESSION: 1. Normal triplex scan without evidence of deep venous thrombosis involving the right upper extremity. 2. A hypoechoic proximal right forearm subcutaneous collection is seen, possibly a hematoma or abscess. Please correlate with clinical findings. DICTATED BY: DUANE CLINTON MD DATE/TIME DICTATED:01/30/171530 PHOTOGRAMMETRIC SURVEYOR:PIPER DATE/TIME TRANSCRIBED:01/30/171530 CONFIDENTIAL, DO NOT COPY WITHOUT APPROPRIATE AUTHORIZATION. <Electronically signed in Other Vendor System> SIGNED BY: DUANE CLINTON MD 01/30/17 1544 Comments: 01/30/2017 5:32:46 PM: I spoke to Dr. Donnie Kline. He reported that this patient does not need to be on any antibiotics at this time. He reported that this may need to be drained by interventional radiology. He reported that there could be a case for admitting her as she has been spiking fevers to 103. She is afebrile here in the emergency department. He also reported that if needed she could have this drained as an outpatient. He reported that he Artese spoke to he went and told them that he would see her in the office as an outpatient. I also spoke with Ned for acute healthcare. She reported, "we do not know exactly what the Bactrim and clindamycin being used for. We thought maybe it was a UTI and then we thought it was her arm." I spoke to Dr. Wolfe, on-call general surgeon. His orthopedic PA was at the patient's bedside for face-to- face evaluation. He reported that it seems like this was a hematoma that got infected. He is requesting that I drain the fluid collection here in the emergency department and then let this patient go home for follow-up. (SAMY SEPULVEDA,AMBRSOE) Plan of Care: Orders Procedure Date/time Status EXTREMETIES CULTURE 01/30 1749 Active Add-on Test (ER Only) 01/30 1507 Active BLOOD CULTURE 01/30 1410 Active LACTIC ACID 01/30 1410 Complete COMPREHENSIVE METABOLIC PANEL 01/30 141 Complete CREATINE PHOSPHOKINASE 01/30 1410 Complete CBC WITHOUT DIFFERENTIAL 01/30 141 Complete Laboratory Tests 01/30/17 1710: Lactic Acid Cancelled 01/30/17 1604: Anion Gap 12, Estimated GFR > 60, BUN/Creatinine Ratio 18.3, Glucose 91, Lactic Acid 1.2, Calcium 9.8, Total Bilirubin 0.5, AST 27, ALT 26, Alkaline Phosphatase 95, Creatine Kinase 47, Total Protein 7.3, Albumin 3.8, Globulin 3.5, Albumin/ Globulin Ratio 1.1, CBC w Diff NO MAN DIFF REQ, RBC 4.14 L, MCV 86.9, MCH 28.3, RDW 15.4 H, MPV 7.7, Gran % 66.9, Lymphocytes % 24.5, Monocytes % 7.3, Eosinophils % 1.3, Basophils % 0 L, Absolute Granulocytes 3.8, Absolute Lymphocytes 1.4, Absolute Monocytes 0.4, Absolute Eosinophils 0.1, Absolute Basophils 0, PUBS MCHC 32.6 L Microbiology 01/30 1825 EXTREMITIE: Culture & Sensitivity - RES GRAM NEGATIVE RODS 01/30 1825 EXTREMITIE: Gram Stain - RES 01/30 1610 BLOOD: Blood Culture - RECD 01/31 1604 BLOOD: Blood Culture - RECD Departure Departure Disposition: HOME OR SELF CARE Condition: Stable Clinical Impression Primary Impression: Hematoma Referrals: BEVERLEY JOHN MD (PCP/Family) Additional Instructions: Please follow-up with your primary care physician as well as with your infectious disease doctor. Return for any worsening symptoms or concerns. Departure Forms: Customer Survey General Discharge Information (AMBROSE PABLO PA-C) PA/COILED TUBING SUPERVISOR Co-Sign Statement Statement: ED Attending supervision documentation- [X] I saw and evaluated the patient. I have also reviewed all the pertinent lab results and diagnostic results. I agree with the findings and the plan of care as documented in the PA's/COILED TUBING SUPERVISOR's documentation. [X] I have reviewed the ED Record and agree with the PA's/COILED TUBING SUPERVISOR's documentation. [] Additions or exceptions (if any) to the PAs/COILED TUBING SUPERVISOR's note and plan are summarized below: [] (REJI HDZ,RADHA Yost) Procedures Incision and Drainage Site: RIGHT FOREARM Blade Size: 11 I & D Procedure: Yes: betadine prep, sterile drapes applied, sterile dressing applied. No: wick placed. Progress: Patient tolerated the procedure well. A small amount of serosanguineous fluid as well as a small amount of pus was drained from the site. (AMBROSE PABLO PA-C)
--- NOTE | 2017-01-30 14:54 | CT SCAN REPORT ---
EXAMINATION: CT HEAD WITHOUT CONTRAST CLINICAL INFORMATION: Fall. Evaluate for intracranial hemorrhage. COMPARISON: Head CT from 12/29/2016 TECHNIQUE: Contiguous axial imaging was performed from the skull base to vertex without intravenous administration of contrast. DLP: 672 mGy-cm FINDINGS: There are a few old, scattered areas of hypoattenuation within supratentorial white matter from chronic white matter ischemic changes and/or demyelination change. No acute intracranial hemorrhage, focal extra-axial fluid collection, mass effect or midline shift. The forbes-white matter differentiation is preserved. The ventricles, sulci and basilar cisterns are unremarkable. No acute findings within the posterior fossa. The calvarium is intact and the visualized paranasal sinuses, mastoid air cells and middle ear cavities are well aerated. Within the right orbit, a scleral band extends around the right globe. IMPRESSION: No acute intracranial pathology compared to 12/29/2016.
--- NOTE | 2017-01-30 15:44 | ULTRASOUND REPORT ---
EXAMINATION: US TRIPLEX UPPER EXTREMITY, RIGHT CLINICAL INFORMATION: Right upper extremity edema and swelling. COMPARISON: Right upper extremity ultrasound dated 01/03/2017. TECHNIQUE: Color-flow triplex imaging with spectral analysis and compression Doppler were performed on the right upper extremity. FINDINGS: The right internal jugular, innominate, subclavian, axillary, brachial, basilic, cephalic vein segments show normal flow and compressibility. No deep venous thrombosis is seen. In the lateral right upper forearm, there is a subcutaneous heterogeneously hypoechoic collection measuring 2.1 x 1.1 x 1.0 cm. IMPRESSION: 1. Normal triplex scan without evidence of deep venous thrombosis involving the right upper extremity. 2. A hypoechoic proximal right forearm subcutaneous collection is seen, possibly a hematoma or abscess. Please correlate with clinical findings.
[2017-01-30 16:17] LABS: ABSOLUTE BASOPHIL COUNT 0 /CUMM (0.0-0.2); ABSOLUTE EOSINOPHIL COUNT 0.1 /CUMM (0.0-0.7); ABSOLUTE GRANULOCYTE CT 3.8 /CUMM (1.4-6.5); ABSOLUTE LYMPH COUNT 1.4 /CUMM (1.2-3.4); ABSOLUTE MONOCYTE COUNT 0.4 /CUMM (0.10-0.60); BASOPHIL % 0 % (0.0-2.0); EOSINOPHIL % 1.3 % (0-5); GRANULOCYTE % 66.9 % (42.2-75.2); MEAN CORPUSCULAR HGB 28.3 PG (27.0-31.0); MEAN CORPUSCULAR HGB CONC 32.6 G/DL (33.0-37.0); MEAN CORPUSCULAR VOLUME 86.9 FL (81.0-99.0); MEAN PLATELET VOLUME 7.7 FL (7.4-10.4); PLATELET COUNT 257 /CUMM (130-400); RBC DISTRIBUTION WIDTH 15.4 % (11.5-14.5); RED BLOOD CELL CT 4.14 /CUMM (4.20-5.40); WHITE BLOOD CELL COUNT 5.7 /CUMM (4.8-10.8)
[2017-01-30 17:00] VITALS: BP 160/89
== END 2017-01-30 19:03 ==
LOC: ERH 13:21
PROVIDERS: Physician Assistant
DX: S50.11XA Contusion of right forearm, initial encounter (principal); M79.89 Other specified soft tissue disorders; W19.XXXA Unspecified fall, initial encounter; Y92.9 Unspecified place or not applicable; Y93.9 Activity, unspecified
CPT/HCPCS: 87040; 87070